=== PATIENT | male | born 1955 | race Caucasian/White ===

== ENCOUNTER 2021-06-07 08:27 | Outpatient (REF) | payer OTHER, MEDICARE, MEDICAID, SELFPAY | END 2021-06-07 08:28 | disposition home or self-care (01) | LOC: HO.LAB 08:27 | PROVIDERS: PCP Internal Medicine; Visit Provider Anesthesiology | DX: G89.4 Chronic pain syndrome (principal); M50.30 Other cervical disc degeneration, unspecified cervical region; M51.36 Other intervertebral disc degeneration, lumbar region; M47.812 Spondylosis without myelopathy or radiculopathy, cervical region; M47.816 Spondylosis without myelopathy or radiculopathy, lumbar region; F12.90 Cannabis use, unspecified, uncomplicated | CPT/HCPCS: 99202 ==

== ENCOUNTER → 2021-06-23 09:03 | Outpatient (BNVA) | payer OTHER, MEDICARE, MEDICAID, SELFPAY | PROVIDERS: PCP Internal Medicine; Visit Provider Anesthesiology | DX: M50.30 Other cervical disc degeneration, unspecified cervical region (principal); M51.36 Other intervertebral disc degeneration, lumbar region; M47.812 Spondylosis without myelopathy or radiculopathy, cervical region; M47.816 Spondylosis without myelopathy or radiculopathy, lumbar region; G89.4 Chronic pain syndrome | CPT/HCPCS: 99212 ==

== ENCOUNTER → 2021-07-06 09:25 | Outpatient (BNVA) | payer OTHER, MEDICARE, MEDICAID, SELFPAY | PROVIDERS: PCP Internal Medicine; Visit Provider Family Medicine Adult Medicine | DX: M47.812 Spondylosis without myelopathy or radiculopathy, cervical region (principal); M50.30 Other cervical disc degeneration, unspecified cervical region; G89.4 Chronic pain syndrome | CPT/HCPCS: 99212 ==

== ENCOUNTER → 2021-08-04 08:40 | Outpatient (BNVA) | payer OTHER, MEDICARE, MEDICAID, SELFPAY | PROVIDERS: PCP Internal Medicine; Visit Provider Anesthesiology | DX: M50.30 Other cervical disc degeneration, unspecified cervical region (principal); M51.36 Other intervertebral disc degeneration, lumbar region; M47.812 Spondylosis without myelopathy or radiculopathy, cervical region; M47.816 Spondylosis without myelopathy or radiculopathy, lumbar region; G89.4 Chronic pain syndrome | CPT/HCPCS: 99212 ==

== ENCOUNTER → 2021-08-30 10:12 | Outpatient (BNVA) | payer OTHER, SELFPAY | PROVIDERS: PCP Internal Medicine; Visit Provider Anesthesiology | DX: M50.30 Other cervical disc degeneration, unspecified cervical region (principal); M51.36 Other intervertebral disc degeneration, lumbar region; M47.812 Spondylosis without myelopathy or radiculopathy, cervical region; M47.816 Spondylosis without myelopathy or radiculopathy, lumbar region; G89.4 Chronic pain syndrome; I10 Essential (primary) hypertension; E78.5 Hyperlipidemia, unspecified; G47.00 Insomnia, unspecified; F41.8 Other specified anxiety disorders | CPT/HCPCS: 99212 ==

== ENCOUNTER → 2021-10-19 09:29 | Outpatient (BNVA) | payer OTHER, SELFPAY | PROVIDERS: PCP Internal Medicine; Visit Provider Anesthesiology | DX: Z51.81 Encounter for therapeutic drug level monitoring (principal) | CPT/HCPCS: 99211 ==

== ENCOUNTER → 2021-11-18 08:33 | Outpatient (BNVA) | payer OTHER, SELFPAY | PROVIDERS: PCP Internal Medicine; Visit Provider Anesthesiology | DX: Z51.81 Encounter for therapeutic drug level monitoring (principal); M50.30 Other cervical disc degeneration, unspecified cervical region; M51.36 Other intervertebral disc degeneration, lumbar region; M47.812 Spondylosis without myelopathy or radiculopathy, cervical region; M47.816 Spondylosis without myelopathy or radiculopathy, lumbar region; G89.4 Chronic pain syndrome | CPT/HCPCS: 99212 ==

== ENCOUNTER → 2021-12-29 10:00 | Outpatient (BNVA) | payer OTHER, SELFPAY | PROVIDERS: PCP Internal Medicine; Visit Provider Anesthesiology | DX: Z51.81 Encounter for therapeutic drug level monitoring (principal); F11.20 Opioid dependence, uncomplicated; M50.30 Other cervical disc degeneration, unspecified cervical region; M51.36 Other intervertebral disc degeneration, lumbar region; M47.812 Spondylosis without myelopathy or radiculopathy, cervical region; M47.816 Spondylosis without myelopathy or radiculopathy, lumbar region; G89.4 Chronic pain syndrome | CPT/HCPCS: 99212 ==

== ENCOUNTER → 2022-01-26 09:41 | Outpatient (BNVA) | payer OTHER, SELFPAY | PROVIDERS: PCP Internal Medicine; Visit Provider Anesthesiology | DX: Z51.81 Encounter for therapeutic drug level monitoring (principal); F11.20 Opioid dependence, uncomplicated; M50.30 Other cervical disc degeneration, unspecified cervical region; M51.36 Other intervertebral disc degeneration, lumbar region; M47.812 Spondylosis without myelopathy or radiculopathy, cervical region; M47.816 Spondylosis without myelopathy or radiculopathy, lumbar region; G89.4 Chronic pain syndrome | CPT/HCPCS: 99212 ==

== ENCOUNTER → 2022-02-23 09:57 | Outpatient (BNVA) | payer OTHER, SELFPAY | PROVIDERS: PCP Internal Medicine; Visit Provider Anesthesiology | DX: Z51.81 Encounter for therapeutic drug level monitoring (principal); Z79.899 Other long term (current) drug therapy | CPT/HCPCS: 99211 ==

== ENCOUNTER → 2022-03-25 09:56 | Outpatient (BNVA) | payer OTHER, SELFPAY | PROVIDERS: PCP Internal Medicine; Visit Provider Anesthesiology | DX: Z13.89 Encounter for screening for other disorder (principal) ==

== ENCOUNTER → 2022-04-21 10:48 | Outpatient (BNVA) | payer OTHER, SELFPAY | PROVIDERS: PCP Internal Medicine; Visit Provider Internal Medicine | DX: Z51.81 Encounter for therapeutic drug level monitoring (principal); F11.20 Opioid dependence, uncomplicated; G89.4 Chronic pain syndrome | CPT/HCPCS: 99212 ==

== ENCOUNTER → 2022-05-19 09:57 | Outpatient (BNVA) | payer OTHER, SELFPAY | PROVIDERS: PCP Internal Medicine; Visit Provider Nurse Practitioner Family | DX: Z51.81 Encounter for therapeutic drug level monitoring (principal); F11.20 Opioid dependence, uncomplicated | CPT/HCPCS: 99211 ==

== ENCOUNTER → 2022-06-15 09:45 | Outpatient (BNVA) | payer OTHER, SELFPAY | PROVIDERS: PCP Internal Medicine; Visit Provider Anesthesiology | DX: Z51.81 Encounter for therapeutic drug level monitoring (principal); F11.20 Opioid dependence, uncomplicated; M50.30 Other cervical disc degeneration, unspecified cervical region; M51.36 Other intervertebral disc degeneration, lumbar region; M47.812 Spondylosis without myelopathy or radiculopathy, cervical region; M47.816 Spondylosis without myelopathy or radiculopathy, lumbar region; G89.4 Chronic pain syndrome | CPT/HCPCS: 99212 ==

== ENCOUNTER → 2022-07-20 10:06 | Outpatient (BNVA) | payer OTHER, SELFPAY | PROVIDERS: PCP Internal Medicine; Visit Provider Anesthesiology | DX: Z51.81 Encounter for therapeutic drug level monitoring (principal); F11.20 Opioid dependence, uncomplicated; M50.30 Other cervical disc degeneration, unspecified cervical region; M51.36 Other intervertebral disc degeneration, lumbar region; M47.812 Spondylosis without myelopathy or radiculopathy, cervical region; M47.816 Spondylosis without myelopathy or radiculopathy, lumbar region; G89.4 Chronic pain syndrome | CPT/HCPCS: 99212 ==

== ENCOUNTER → 2022-08-17 10:46 | Outpatient (BNVA) | payer OTHER, SELFPAY | PROVIDERS: PCP Internal Medicine; Visit Provider Anesthesiology | DX: M50.30 Other cervical disc degeneration, unspecified cervical region (principal); M51.36 Other intervertebral disc degeneration, lumbar region; M47.812 Spondylosis without myelopathy or radiculopathy, cervical region; M47.816 Spondylosis without myelopathy or radiculopathy, lumbar region; G89.4 Chronic pain syndrome | CPT/HCPCS: 99212 ==

== ENCOUNTER → 2022-09-14 10:28 | Outpatient (BNVA) | payer OTHER, SELFPAY | PROVIDERS: PCP Internal Medicine; Visit Provider Anesthesiology | DX: Z51.81 Encounter for therapeutic drug level monitoring (principal); F11.20 Opioid dependence, uncomplicated | CPT/HCPCS: 99211 ==

== ENCOUNTER → 2022-10-12 09:49 | Outpatient (BNVA) | payer OTHER, SELFPAY | PROVIDERS: PCP Internal Medicine; Visit Provider Anesthesiology | DX: M50.30 Other cervical disc degeneration, unspecified cervical region (principal); M51.36 Other intervertebral disc degeneration, lumbar region; M47.812 Spondylosis without myelopathy or radiculopathy, cervical region; M47.816 Spondylosis without myelopathy or radiculopathy, lumbar region; G89.4 Chronic pain syndrome; Z76.0 Encounter for issue of repeat prescription; Z79.891 Long term (current) use of opiate analgesic | CPT/HCPCS: 99212 ==

== ENCOUNTER → 2022-11-09 10:14 | Outpatient (BNVA) | payer OTHER, SELFPAY | PROVIDERS: PCP Internal Medicine; Visit Provider Anesthesiology | DX: Z51.81 Encounter for therapeutic drug level monitoring (principal); F11.20 Opioid dependence, uncomplicated | CPT/HCPCS: 99211 ==

== ENCOUNTER → 2022-12-15 08:55 | Outpatient (BNVA) | payer OTHER, SELFPAY | PROVIDERS: PCP Internal Medicine; Visit Provider Anesthesiology | DX: M50.30 Other cervical disc degeneration, unspecified cervical region (principal); M51.36 Other intervertebral disc degeneration, lumbar region; M47.812 Spondylosis without myelopathy or radiculopathy, cervical region; M47.816 Spondylosis without myelopathy or radiculopathy, lumbar region; G89.4 Chronic pain syndrome | CPT/HCPCS: 99212 ==

== ENCOUNTER → 2023-01-12 10:54 | Outpatient (BNVA) | payer OTHER, SELFPAY | PROVIDERS: PCP Internal Medicine; Visit Provider Anesthesiology | DX: Z51.81 Encounter for therapeutic drug level monitoring (principal); F11.20 Opioid dependence, uncomplicated | CPT/HCPCS: 99211 ==

== ENCOUNTER → 2023-02-13 10:26 | Outpatient (BNVA) | payer OTHER, SELFPAY | PROVIDERS: PCP Internal Medicine; Visit Provider Anesthesiology | DX: M50.30 Other cervical disc degeneration, unspecified cervical region (principal) | CPT/HCPCS: 99212 ==

== ENCOUNTER → 2023-03-15 11:04 | Outpatient (BNVA) | payer OTHER, SELFPAY | PROVIDERS: PCP Internal Medicine; Visit Provider Anesthesiology | DX: Z51.81 Encounter for therapeutic drug level monitoring (principal); F11.20 Opioid dependence, uncomplicated; M50.30 Other cervical disc degeneration, unspecified cervical region; M51.36 Other intervertebral disc degeneration, lumbar region; M47.812 Spondylosis without myelopathy or radiculopathy, cervical region; M47.816 Spondylosis without myelopathy or radiculopathy, lumbar region; G89.4 Chronic pain syndrome | CPT/HCPCS: 99212 ==

== ENCOUNTER → 2023-04-12 10:58 | Outpatient (BNVA) | payer OTHER, SELFPAY | PROVIDERS: PCP Internal Medicine; Visit Provider Anesthesiology | DX: Z79.891 Long term (current) use of opiate analgesic (principal); Z51.81 Encounter for therapeutic drug level monitoring | CPT/HCPCS: 99211 ==

== ENCOUNTER → 2023-05-08 10:36 | Outpatient (BNVA) | payer OTHER, MEDICAID, MEDICARE, SELFPAY | PROVIDERS: PCP Internal Medicine; Visit Provider Anesthesiology | DX: Z51.81 Encounter for therapeutic drug level monitoring (principal); F11.20 Opioid dependence, uncomplicated; M50.30 Other cervical disc degeneration, unspecified cervical region; M51.36 Other intervertebral disc degeneration, lumbar region; M47.812 Spondylosis without myelopathy or radiculopathy, cervical region; M47.816 Spondylosis without myelopathy or radiculopathy, lumbar region; G89.4 Chronic pain syndrome | CPT/HCPCS: 99212 ==

== ENCOUNTER 2023-05-16 06:05 | Outpatient (REF) | payer MEDICARE, MEDICAID, SELFPAY ==
--- NOTE | ~2023-05-16 | FL_ITS ---
EXAMINATION: XR FLUOROSCOPY WITH IMAGES CLINICAL INFORMATION: Spondylosis without myelopathy or radiculopathy, lumbar region. COMPARISON: None available. TECHNIQUE: Fluoroscopy Supervised By: Dr. Morales. Fluoroscopy Time: 0.6 minutes. Cumulative Dose: 10.6 mGy. DAP: 2.88 Gycm2. Images: 6. FINDINGS: Images demonstrate needle placement and contrast injection adjacent to the bilateral lateral L3, L4 and L5 vertebrae. FL/FL guidance in treatment room IMPRESSION: Fluoroscopy guidance for pain management procedure.
== END 2023-05-16 06:06 | disposition home or self-care (01) ==
LOC: CF 06:05
PROVIDERS: Visit Provider Anesthesiology
DX: M50.30 Other cervical disc degeneration, unspecified cervical region (principal); M51.36 Other intervertebral disc degeneration, lumbar region; M47.812 Spondylosis without myelopathy or radiculopathy, cervical region; M47.816 Spondylosis without myelopathy or radiculopathy, lumbar region; G89.4 Chronic pain syndrome
CPT/HCPCS: 64493; 64494; J2795

== ENCOUNTER → 2023-05-18 10:41 | Outpatient (BNVA) | payer MEDICARE, MEDICAID, SELFPAY | PROVIDERS: PCP Internal Medicine; Visit Provider Anesthesiology | DX: M50.30 Other cervical disc degeneration, unspecified cervical region (principal); M51.36 Other intervertebral disc degeneration, lumbar region; M47.812 Spondylosis without myelopathy or radiculopathy, cervical region; M47.816 Spondylosis without myelopathy or radiculopathy, lumbar region; G89.4 Chronic pain syndrome | CPT/HCPCS: 99212 ==

== ENCOUNTER 2023-06-05 10:29 | Outpatient (AMB) | payer MEDICARE, MEDICAID, SELFPAY ==
--- NOTE | 2023-06-05 10:40 | MHC.OFFVIS ---
Intake Vital Signs 06/05/23 10:48 Height 5 ft 4 in Weight 190 lb BMI 32.6 BP 112/58 L Blood Pressure Location Rt brachial Position Sitting Respiration 16 Pulse 70 Pulse Source Pulse Oximeter Pulse Oximetry (%) 98 Oxygen Delivery Method Room Air Intake Visit Reasons: PILL COUNT Intake Note: Patient comes in for pill count to Oxycodone 10 mg tablets. He presented with 86 tablets and should have 88 tablets. Which he took last at 6am. Patient reports pain level today of 8.5/10. Allergies No Known Allergies Allergy (Verified 06/05/23 10:48) HPI HPI Comments History of Present Illness Details Dinh is in my office for the follow-up and pill count. His pill count is correct today his supposed to have 88 pills in his possession he presented is the with 86 pills. He all this takes 2 pills in the morning. He takes also 2 pills at night. He complains on weakness in the lower extremities when he steps out of the car. That it is most likely secondary to spinal stenosis he has there. Prior: diagnostic bilateral L3- L4- L5 MBB performed on 05/16/23. He reports no pain improvement whatsoever. pain after the procedure remained in the range 8/10 to 9.5/10. SCS nevro trial was discussed with the patient. He reports that his son has computer at home and will be able to help him with the psychological evaluation. After that we will schedule him for a trial. ?He has severe lumbar stenosis.? I recommended him to go back to a neurosurgeon to discuss his spinal stenosis.? However patient adamantly refused to go for consultation with a neurosurgeon.? 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 At multiple intervertebral interval he has ligamentum flavum hypertrophy which could be addressed with MILD procedure. Prior: Dinh is 65 years old gentleman who presents in my office with complains on severe pain in neck and severe pain in the back.? He reports pain in the neck radiates into the right upper extremity and pain in the back is not radiating.? He relates his pain to the injuries he sustained while in accident on 09/05. he fell from garbage truck an fell on his back.? About 2 years ago he was on oxycodone about 120 mg a day and the he was more active and able to walk better.? He reports that he had multiple chiropractic manipulations and physical therapy in the past to alleviate his pain and those were not effective, he has home traction unit but it does not alleviate his pain. He takes Lyrica meloxicam Cymbalta phentermine and amitriptyline to help him to sleep at night. He never had surgery on his back although on MRI from 2010 he had severe foraminal stenosis at C4-C5 level and mild central cord compression.? He refuses surgery.? He told me that the surgeries something he would never except for himself.? He received 1 injection of unknown kind in his lumbar spine but never in injection in his cervical spine. [facility] Medical History (Updated 06/07/21 @ 09:25 by Moiz Morales MD) Allergic rhinitis Anxiety Chronic pain syndrome Chronic radicular cervical pain COPD (chronic obstructive pulmonary disease) Degenerative disc disease, cervical Degenerative disc disease, lumbar Depression Erectile dysfunction Essential hypertension Hyperlipidemia Insomnia Spondylosis of lumbar region without myelopathy or radiculopathy Spondylosis, cervical Review of Systems Const All systems reviewed & are unremarkable except as noted in HPI and below Physical Exam Vital Signs: Last Vital Signs Pulse 70 06/05/23 10:48 Resp 16 06/05/23 10:48 BP 112/58 L 06/05/23 10:48 Pulse Ox 98 06/05/23 10:48 Oxygen Delivery Method Room Air 06/05/23 10:48 BMI result Body Mass Index 32.6 Resp Effort & Inspection: normal respiratory effort and able to speak in complete sentences Cardio Jugular venous distension: no JVD Back/Spine/Pelvis Other: Loading test is positive bilaterally, tenderness of palpation on paraspinal spinal region lumbar spine Cervical Spine: No cervical ROM normal Thoracic/Lumbar Spine: thoracic and lumbar spine normal to inspection, pain with thoraco-lumbar ROM and thoraco-lumbar ROM limited Psych Appearance: grossly normal Mental Status: mental status grossly normal Speech and movement: Normal speech and movement present Affect: normal affect Attitude: cooperative Thought process: Normal thought process present Thought content: Normal thought content present Insight: Good insight present (Psych) Judgement: Good judgement present (Psych) Assessment & Plan Assessment & Plan (1) Degenerative disc disease, cervical: Code(s): M50.30 - Other cervical disc degeneration, unspecified cervical region (2) Degenerative disc disease, lumbar: Code(s): M51.36 - Other intervertebral disc degeneration, lumbar region (3) Spondylosis, cervical: Code(s): M47.812 - Spondylosis without myelopathy or radiculopathy, cervical region (4) Spondylosis of lumbar region without myelopathy or radiculopathy: Code(s): M47.816 - Spondylosis without myelopathy or radiculopathy, lumbar region (5) Chronic pain syndrome: Code(s): G89.4 - Chronic pain syndrome Plan Next appointment for a pill count is in the middle of June. New medication will be prescribed for him for 12/16/2022. He is in the process of getting psychological evaluation. As soon as psych eval is ready - the patient will be scheduled for the nevro trial. MILD procedure could be offered to the patient if Nevro trial fails. Bupivacaine pain pump could be also tried. Medications: Refilled oxycodone Partial Fill upon patient request. 10 mg PO Q6H PRN 120 tabs 0RF pain 30 days Coding Level of Care Code Est Pt Level 4 (38532) Diagnoses Degenerative disc disease, cervical M50.30 Degenerative disc disease, lumbar M51.36 Spondylosis, cervical M47.812 Spondylosis of lumbar region without myelopathy or radiculopathy M47.816 Chronic pain syndrome G89.4
[2023-06-05 10:48] VITALS: BP 112/58; PULSE 70; RESP 16; O2SAT 98; BMI 32.6
== END 2023-06-05 11:09 | disposition home or self-care (01) ==
PROVIDERS: PCP Internal Medicine; Visit Provider Anesthesiology
DX: M47.812 Spondylosis without myelopathy or radiculopathy, cervical region (principal); M47.816 Spondylosis without myelopathy or radiculopathy, lumbar region; Z79.891 Long term (current) use of opiate analgesic; G89.4 Chronic pain syndrome; M51.36 Other intervertebral disc degeneration, lumbar region; M50.30 Other cervical disc degeneration, unspecified cervical region
CPT/HCPCS: 99214

== ENCOUNTER → 2023-06-05 10:29 | Outpatient (BNVA) | payer OTHER, MEDICARE, SELFPAY | PROVIDERS: PCP Internal Medicine; Visit Provider Anesthesiology | DX: Z51.81 Encounter for therapeutic drug level monitoring (principal); F11.20 Opioid dependence, uncomplicated; M50.30 Other cervical disc degeneration, unspecified cervical region; M51.36 Other intervertebral disc degeneration, lumbar region; M47.812 Spondylosis without myelopathy or radiculopathy, cervical region; M47.816 Spondylosis without myelopathy or radiculopathy, lumbar region; G89.4 Chronic pain syndrome | CPT/HCPCS: 99212 ==

== ENCOUNTER → 2023-07-04 10:28 | Outpatient (BNVA) | payer OTHER, MEDICARE, MEDICAID, SELFPAY | PROVIDERS: PCP Internal Medicine; Visit Provider Nurse Practitioner Family ==

== ENCOUNTER 2023-08-02 09:23 | Outpatient (AMB) | payer OTHER, MEDICARE, MEDICAID, SELFPAY ==
[2023-08-02 09:52] VITALS: BP 142/70; PULSE 88; RESP 16; O2SAT 97; BMI 31.3
--- NOTE | 2023-08-02 09:52 | MHC.OFFVIS ---
Intake Vital Signs 08/02/23 09:52 Height 5 ft 4 in Weight 182 lb 2 oz BMI 31.3 BP 142/70 H Blood Pressure Location Rt brachial Position Sitting Respiration 16 Pulse 88 Pulse Source Pulse Oximeter Pulse Oximetry (%) 97 Oxygen Delivery Method Room Air Intake Visit Reasons: Pill count Intake Note: patient comes in for pill count. Allergies No Known Allergies Allergy (Verified 08/02/23 09:52) HPI HPI Comments History of Present Illness Details Dinh is in my office for the pill count and pain medication refill. His supposed to have 96 pills in his possession he presented with 94 pills. The pill count therefore is correct. He reports his pain level today is 9/10. We are working on starting on Nevro trial, he has workman's Comp patient. His behavioral assessment through [facility] is pending for potential Nevro SCS trial. Denies any side effects of the opioid medication, denies constipation, nausea, sedation, dizziness, or urinary retention. PRIOR: diagnostic bilateral L3- L4- L5 MBB performed on 05/16/23. He reports no pain improvement whatsoever. pain after the procedure remained in the range 8/10 to 9.5/10. SCS nevro trial was discussed with the patient. He reports that his son has computer at home and will be able to help him with the psychological evaluation. After that we will schedule him for a trial. ?He has severe lumbar stenosis.? I recommended him to go back to a neurosurgeon to discuss his spinal stenosis.? However patient adamantly refused to go for consultation with a neurosurgeon.? 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 At multiple intervertebral interval he has ligamentum flavum hypertrophy which could be addressed with MILD procedure. complains on severe pain in neck and severe pain in the back.? He reports pain in the neck radiates into the right upper extremity and pain in the back is not radiating.? He relates his pain to the injuries he sustained while in accident on 09/05. he fell from garbage truck an fell on his back.? About 2 years ago he was on oxycodone about 120 mg a day and the he was more active and able to walk better.? He reports that he had multiple chiropractic manipulations and physical therapy in the past to alleviate his pain and those were not effective, he has home traction unit but it does not alleviate his pain. He takes Lyrica meloxicam Cymbalta phentermine and amitriptyline to help him to sleep at night. He never had surgery on his back although on MRI from 2010 he had severe foraminal stenosis at C4-C5 level and mild central cord compression.? He refuses surgery.? He told me that the surgeries something he would never except for himself.? He received 1 injection of unknown kind in his lumbar spine but never in injection in his cervical spine. [facility] Medical History (Updated 07/04/23 @ 11:10 by CEDRICK Jarquin) Allergic rhinitis Anxiety Chronic pain syndrome Chronic radicular cervical pain COPD (chronic obstructive pulmonary disease) Degenerative disc disease, cervical Degenerative disc disease, lumbar Depression Erectile dysfunction Essential hypertension Hyperlipidemia Insomnia Spondylosis of lumbar region without myelopathy or radiculopathy Spondylosis, cervical Review of Systems Const All systems reviewed & are unremarkable except as noted in HPI and below Physical Exam Vital Signs: Last Vital Signs Pulse 88 08/02/23 09:52 Resp 16 08/02/23 09:52 BP 142/70 H 08/02/23 09:52 Pulse Ox 97 08/02/23 09:52 Oxygen Delivery Method Room Air 08/02/23 09:52 BMI result Body Mass Index 31.3 Resp Effort & Inspection: normal respiratory effort and able to speak in complete sentences Cardio Jugular venous distension: no JVD Back/Spine/Pelvis Other: Loading test is positive bilaterally, tenderness of palpation on paraspinal spinal region lumbar spine Cervical Spine: No cervical ROM normal Thoracic/Lumbar Spine: thoracic and lumbar spine normal to inspection, pain with thoraco-lumbar ROM and thoraco-lumbar ROM limited Psych Appearance: grossly normal Mental Status: mental status grossly normal Speech and movement: Normal speech and movement present Affect: normal affect Attitude: cooperative Thought process: Normal thought process present Thought content: Normal thought content present Insight: Good insight present (Psych) Judgement: Good judgement present (Psych) Assessment & Plan Assessment & Plan (1) Degenerative disc disease, cervical: Code(s): M50.30 - Other cervical disc degeneration, unspecified cervical region (2) Degenerative disc disease, lumbar: Code(s): M51.36 - Other intervertebral disc degeneration, lumbar region (3) Spondylosis, cervical: Code(s): M47.812 - Spondylosis without myelopathy or radiculopathy, cervical region (4) Spondylosis of lumbar region without myelopathy or radiculopathy: Code(s): M47.816 - Spondylosis without myelopathy or radiculopathy, lumbar region (5) Chronic pain syndrome: Code(s): G89.4 - Chronic pain syndrome Plan Next appointment Will be scheduled in 1 month. New medication will be prescribed for him for 08/26/2023 He is in the process of getting psychological evaluation. Workman's Comp needs to be get contacted to approve psych eval. As soon as psych eval is ready - the patient will be scheduled for the nevro trial. MILD procedure could be offered to the patient if Nevro trial fails. MRI could be evaluated for his lumbar spine, Modic type changes could be assessed. Bupivacaine pain pump could be also tried in combination with Nevro SCS. Medications: Refilled oxycodone Partial Fill upon patient request. 10 mg PO Q6H PRN 120 tabs 0RF pain 30 days G89.4 - Chronic pain syndrome, M50.30 - Other cervical disc degeneration, unspecified cervical region, M51.36 - Other intervertebral disc degeneration, lumbar region, Z79.891 - prison (current) use of opiate analgesic Coding Level of Care Code Est Pt Level 4 (42943) Diagnoses Degenerative disc disease, cervical M50.30 Degenerative disc disease, lumbar M51.36 Spondylosis, cervical M47.812 Spondylosis of lumbar region without myelopathy or radiculopathy M47.816 Chronic pain syndrome G89.4
== END 2023-08-02 09:54 | disposition home or self-care (01) ==
PROVIDERS: PCP Internal Medicine; Visit Provider Anesthesiology
DX: G89.4 Chronic pain syndrome (principal); M50.30 Other cervical disc degeneration, unspecified cervical region; M51.36 Other intervertebral disc degeneration, lumbar region; M47.812 Spondylosis without myelopathy or radiculopathy, cervical region; M47.816 Spondylosis without myelopathy or radiculopathy, lumbar region; Z79.891 Long term (current) use of opiate analgesic
CPT/HCPCS: 99214

== ENCOUNTER → 2023-08-02 09:23 | Outpatient (BNVA) | payer OTHER, MEDICARE, MEDICAID, SELFPAY | PROVIDERS: PCP Internal Medicine; Visit Provider Anesthesiology | DX: G89.4 Chronic pain syndrome (principal); M50.30 Other cervical disc degeneration, unspecified cervical region; M51.36 Other intervertebral disc degeneration, lumbar region; M47.812 Spondylosis without myelopathy or radiculopathy, cervical region; M47.816 Spondylosis without myelopathy or radiculopathy, lumbar region; Z79.891 Long term (current) use of opiate analgesic | CPT/HCPCS: 99212 ==

== ENCOUNTER 2023-08-30 09:56 | Outpatient (AMB) | payer OTHER, MEDICARE, MEDICAID, SELFPAY ==
--- NOTE | 2023-08-30 10:13 | MHC.OFFVIS ---
Intake Vital Signs 08/30/23 10:31 Height 5 ft 4 in Weight 187 lb 4 oz BMI 32.1 BP 146/68 H Blood Pressure Location Rt brachial Position Sitting Respiration 18 Pulse 70 Pulse Source Pulse Oximeter Pulse Oximetry (%) 96 Oxygen Delivery Method Room Air Intake Visit Reasons: Pill count/ Confirmed. Intake Note: patient comes in for pill count to Oxycodone 10 mg tablets. Allergies No Known Allergies Allergy (Verified 08/30/23 10:33) HPI HPI Comments History of Present Illness Details Dinh is in my office for the pill count and pain medication refill. His supposed to have 104 pills in his possession he presented with 102 pills. The pill count therefore is correct. He reports his pain level today is 8/10. He admits minimal to moderate help from the opioid medication 2 to 3 hours after he takes his pills . Denies any side effects of the opioid medication, denies constipation, nausea, sedation, dizziness, or urinary retention. He took his pills in the morning. We are working on starting on Nevro trial, he is workman's Comp patient. His behavioral assessment through [facility] is pending for potential Nevro SCS trial. His workman's comp needs to approve the psychological evaluation. Denies any side effects of the opioid medication, denies constipation, nausea, sedation, dizziness, or urinary retention. PRIOR: diagnostic bilateral L3- L4- L5 MBB performed on 05/16/23. He reports no pain improvement whatsoever. pain after the procedure remained in the range 8/10 to 9.5/10. SCS nevro trial was discussed with the patient. He reports that his son has computer at home and will be able to help him with the psychological evaluation. After that we will schedule him for a trial. ?He has severe lumbar stenosis.? I recommended him to go back to a neurosurgeon to discuss his spinal stenosis.? However patient adamantly refused to go for consultation with a neurosurgeon.? 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 At multiple intervertebral interval he has ligamentum flavum hypertrophy which could be addressed with MILD procedure. complains on severe pain in neck and severe pain in the back.? He reports pain in the neck radiates into the right upper extremity and pain in the back is not radiating.? He relates his pain to the injuries he sustained while in accident on 09/05. he fell from garbage truck an fell on his back.? About 2 years ago he was on oxycodone about 120 mg a day and the he was more active and able to walk better.? He reports that he had multiple chiropractic manipulations and physical therapy in the past to alleviate his pain and those were not effective, he has home traction unit but it does not alleviate his pain. He takes Lyrica meloxicam Cymbalta phentermine and amitriptyline to help him to sleep at night. He never had surgery on his back although on MRI from 2010 he had severe foraminal stenosis at C4-C5 level and mild central cord compression.? He refuses surgery.? He told me that the surgeries something he would never except for himself.? He received 1 injection of unknown kind in his lumbar spine but never in injection in his cervical spine. [facility] Medical History (Updated 07/04/23 @ 11:10 by CEDRICK Jarquin) Chronic pain syndrome Spondylosis of lumbar region without myelopathy or radiculopathy Spondylosis, cervical Degenerative disc disease, lumbar Degenerative disc disease, cervical Depression Essential hypertension Chronic radicular cervical pain Allergic rhinitis Anxiety COPD (chronic obstructive pulmonary disease) Insomnia Hyperlipidemia Erectile dysfunction Review of Systems Const All systems reviewed & are unremarkable except as noted in HPI and below Physical Exam Vital Signs: Last Vital Signs Pulse 70 08/30/23 10:31 Resp 18 08/30/23 10:31 BP 146/68 H 08/30/23 10:31 Pulse Ox 96 08/30/23 10:31 Oxygen Delivery Method Room Air 08/30/23 10:31 BMI result Body Mass Index 32.1 Resp Effort & Inspection: normal respiratory effort and able to speak in complete sentences Cardio Jugular venous distension: no JVD Back/Spine/Pelvis Other: Loading test is positive bilaterally, tenderness of palpation on paraspinal spinal region lumbar spine Cervical Spine: No cervical ROM normal Thoracic/Lumbar Spine: thoracic and lumbar spine normal to inspection, pain with thoraco-lumbar ROM and thoraco-lumbar ROM limited Psych Appearance: grossly normal Mental Status: mental status grossly normal Speech and movement: Normal speech and movement present Affect: normal affect Attitude: cooperative Thought process: Normal thought process present Thought content: Normal thought content present Insight: Good insight present (Psych) Judgement: Good judgement present (Psych) Assessment & Plan Assessment & Plan (1) Degenerative disc disease, cervical: Code(s): M50.30 - Other cervical disc degeneration, unspecified cervical region (2) Degenerative disc disease, lumbar: Code(s): M51.36 - Other intervertebral disc degeneration, lumbar region (3) Spondylosis, cervical: Code(s): M47.812 - Spondylosis without myelopathy or radiculopathy, cervical region (4) Spondylosis of lumbar region without myelopathy or radiculopathy: Code(s): M47.816 - Spondylosis without myelopathy or radiculopathy, lumbar region (5) Chronic pain syndrome: Code(s): G89.4 - Chronic pain syndrome Plan Next appointment Will be scheduled in 1 month. New medication will be prescribed for him for 09/24/2023 He is in the process of getting psychological evaluation. Workman's Comp needs to be get contacted to approve psych eval. As soon as psych eval is ready - the patient will be scheduled for the nevro trial. MILD procedure could be offered to the patient if Nevro trial fails. MRI could be evaluated for his lumbar spine, Modic type changes could be assessed. Bupivacaine pain pump could be also tried in combination with Nevro SCS or separate mode of treatment. Medications: Refilled oxycodone Partial Fill upon patient request. 10 mg PO Q6H 30 days PRN 120 tabs 0RF pain G89.4 - Chronic pain syndrome, M50.30 - Other cervical disc degeneration, unspecified cervical region, M51.36 - Other intervertebral disc degeneration, lumbar region, Z79.891 - intermediate (current) use of opiate analgesic Coding Level of Care Code Est Pt Level 3 (23465) Diagnoses Degenerative disc disease, cervical M50.30 Degenerative disc disease, lumbar M51.36 Spondylosis, cervical M47.812 Spondylosis of lumbar region without myelopathy or radiculopathy M47.816 Chronic pain syndrome G89.4
[2023-08-30 10:31] VITALS: BP 146/68; PULSE 70; RESP 18; O2SAT 96; BMI 32.1
== END 2023-08-30 10:25 | disposition home or self-care (01) ==
PROVIDERS: PCP Internal Medicine; Visit Provider Anesthesiology
DX: G89.4 Chronic pain syndrome (principal); M50.30 Other cervical disc degeneration, unspecified cervical region; M51.36 Other intervertebral disc degeneration, lumbar region; Z79.891 Long term (current) use of opiate analgesic; M47.812 Spondylosis without myelopathy or radiculopathy, cervical region; M47.816 Spondylosis without myelopathy or radiculopathy, lumbar region
CPT/HCPCS: 99213

== ENCOUNTER → 2023-08-30 09:56 | Outpatient (BNVA) | payer OTHER, MEDICARE, MEDICAID, SELFPAY | PROVIDERS: PCP Internal Medicine; Visit Provider Anesthesiology | DX: M50.30 Other cervical disc degeneration, unspecified cervical region (principal); M51.36 Other intervertebral disc degeneration, lumbar region; M47.812 Spondylosis without myelopathy or radiculopathy, cervical region; M47.816 Spondylosis without myelopathy or radiculopathy, lumbar region; G89.4 Chronic pain syndrome; Z79.891 Long term (current) use of opiate analgesic | CPT/HCPCS: 99212 ==

== ENCOUNTER 2023-09-27 10:47 | Outpatient (AMB) | payer OTHER, MEDICARE, MEDICAID, SELFPAY ==
[2023-09-27 10:51] VITALS: BP 121/58; PULSE 72; RESP 12; O2SAT 97; BMI 30.9
--- NOTE | 2023-09-27 10:51 | MHC.OFFVIS ---
Intake Vital Signs 09/27/23 10:51 Height 5 ft 4 in Weight 180 lb BMI 30.9 BP 121/58 L Blood Pressure Location Lt brachial Position Sitting Respiration 12 Pulse 72 Pulse Source Pulse Oximeter Pulse Oximetry (%) 97 Oxygen Delivery Method Room Air Intake Visit Reasons: Medication Count /Confirmed Intake Note: Pt states he last took oxy 09/27/23 @ 6am Allergies No Known Allergies Allergy (Verified 09/27/23 10:52) Medication List - Last Reconciled 09/27/23 by Nadia Crum LPN albuterol sulfate 90 mcg/actuation (Ventolin HFA) inhalation amitriptyline 50 mg PO BEDTIME atorvastatin mg PO cetirizine 10 mg PO DAILY clotrimazole 1% topical ylcbpfkyxko-jmbadvqxo-bnkbpkzr 100-62.5-25 mcg (Trelegy Ellipta) inhalation lisinopril 10 mg PO DAILY omeprazole mg PO oxycodone 10 mg PO Q6H PRN 30 days HPI HPI Comments History of Present Illness Details Dinh is in my office for the pill count and pain medication refill. His supposed to have 112 pills in his possession he presented with 110 pills. The pill count therefore is correct. He reports his pain level today is 8/10. He admits minimal to moderate help from the opioid medication 2 to 3 hours after he takes his pills . Denies any side effects of the opioid medication, denies constipation, nausea, sedation, dizziness, or urinary retention. He took his pills in the morning. We are working on starting on Nevro trial, he is workman's Comp patient. His behavioral assessment through [facility] is pending for potential Nevro SCS trial. His workman's comp needs to approve the psychological evaluation. Denies any side effects of the opioid medication, denies constipation, nausea, sedation, dizziness, or urinary retention. Meanwhile is requesting me to perform some sort of the injection in his lower back to alleviate his pain temporarily. We can try bilateral L4-5 transforaminal epidural steroid injection. PRIOR: diagnostic bilateral L3- L4- L5 MBB performed on 05/16/23. He reports no pain improvement whatsoever. pain after the procedure remained in the range 8/10 to 9.5/10. SCS nevro trial was discussed with the patient. He reports that his son has computer at home and will be able to help him with the psychological evaluation. After that we will schedule him for a trial. ?He has severe lumbar stenosis.? I recommended him to go back to a neurosurgeon to discuss his spinal stenosis.? However patient adamantly refused to go for consultation with a neurosurgeon.? 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 At multiple intervertebral interval he has ligamentum flavum hypertrophy which could be addressed with MILD procedure. complains on severe pain in neck and severe pain in the back.? He reports pain in the neck radiates into the right upper extremity and pain in the back is not radiating.? He relates his pain to the injuries he sustained while in accident on 09/05. he fell from garbage truck an fell on his back.? About 2 years ago he was on oxycodone about 120 mg a day and the he was more active and able to walk better.? He reports that he had multiple chiropractic manipulations and physical therapy in the past to alleviate his pain and those were not effective, he has home traction unit but it does not alleviate his pain. He takes Lyrica meloxicam Cymbalta phentermine and amitriptyline to help him to sleep at night. He never had surgery on his back although on MRI from 2010 he had severe foraminal stenosis at C4-C5 level and mild central cord compression.? He refuses surgery.? He told me that the surgeries something he would never except for himself.? He received 1 injection of unknown kind in his lumbar spine but never in injection in his cervical spine. [facility] Medical History (Updated 07/04/23 @ 11:10 by CEDRICK Jarquin) Chronic pain syndrome Spondylosis of lumbar region without myelopathy or radiculopathy Spondylosis, cervical Degenerative disc disease, lumbar Degenerative disc disease, cervical Depression Essential hypertension Chronic radicular cervical pain Allergic rhinitis Anxiety COPD (chronic obstructive pulmonary disease) Insomnia Hyperlipidemia Erectile dysfunction Review of Systems Const All systems reviewed & are unremarkable except as noted in HPI and below Physical Exam Vital Signs: Last Vital Signs Pulse 72 09/27/23 10:51 Resp 12 09/27/23 10:51 BP 121/58 L 09/27/23 10:51 Pulse Ox 97 09/27/23 10:51 Oxygen Delivery Method Room Air 09/27/23 10:51 BMI result Body Mass Index 30.9 Resp Effort & Inspection: normal respiratory effort and able to speak in complete sentences Cardio Jugular venous distension: no JVD Back/Spine/Pelvis Other: Loading test is positive bilaterally, tenderness of palpation on paraspinal spinal region lumbar spine Cervical Spine: No cervical ROM normal Thoracic/Lumbar Spine: thoracic and lumbar spine normal to inspection, pain with thoraco-lumbar ROM and thoraco-lumbar ROM limited Psych Appearance: grossly normal Mental Status: mental status grossly normal Speech and movement: Normal speech and movement present Affect: normal affect Attitude: cooperative Thought process: Normal thought process present Thought content: Normal thought content present Insight: Good insight present (Psych) Judgement: Good judgement present (Psych) Results Reviewed Results Reviewed: MRI lumbar spine 07/04/2021. Vertebral body height is maintained. There is a straightening of the normal lumbar lordosis. There is 4 mm of anterolisthesis of L4 on L5 and trace retrolisthesis of L5 on S1. There is very slight levoscoliotic curvature. Bone marrow signal intensity is within normal limits. 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 There is disc desiccation throughout lumbar spine. Conus medullaris terminates at the level of L1. Cauda equina is unremarkable. Levels: T12-L1: Disc degeneration and loss in height. Mild facet arthrosis. No central canal stenosis or neural foraminal narrowing. L1-L2: Disc desiccation and diffuse annular bulge with prominence within the neural foraminal bilaterally. There is moderate central canal stenosis severe left and moderate right neural foraminal narrowing. Posterior a medial displacement of traversing nerve roots in the right lateral recess is suspected. Correlation with radiculopathy is recommended. L2-L3: Diffuse annular bulge. Facet arthrosis. Ligamentous laxity contributing to moderate central canal stenosis, lateral recess stenosis, moderate left and mild right neural foraminal narrowing. L3-L4: Disc desiccation: Loss of heights. Diffuse annular bulge. Bilateral ligamentous laxity causing moderate central canal stenosis, lateral recess stenosis, moderate right and left neural foraminal narrowing. L4-5: Disc desiccation and diffuse annular bulge. Facet arthrosis and ligament of laxity with severe central canal stenosis. Lateral recess stenosis, and moderate bilateral neural foraminal narrowing. Abutment of the exiting L4 nerve roots in the far lateral compartment is not complete excluded. L5-S1: Disc desiccation loss of height. Uncovering the posterior intervertebral disc space. Disc osteophyte complex causing effacement of the anterior thecal space. Lateral recess stenosis and moderate lateral neural foraminal narrowing. The vascular soft tissues unremarkable. Assessment & Plan Assessment & Plan (1) Degenerative disc disease, cervical: Code(s): M50.30 - Other cervical disc degeneration, unspecified cervical region (2) Degenerative disc disease, lumbar: Code(s): M51.36 - Other intervertebral disc degeneration, lumbar region (3) Spondylosis, cervical: Code(s): M47.812 - Spondylosis without myelopathy or radiculopathy, cervical region (4) Spondylosis of lumbar region without myelopathy or radiculopathy: Code(s): M47.816 - Spondylosis without myelopathy or radiculopathy, lumbar region (5) Chronic pain syndrome: Code(s): G89.4 - Chronic pain syndrome Plan Next appointment Will be scheduled in 1 month. New medication will be prescribed for him for 10/25/2023 He is in the process of getting psychological evaluation. Workman's Comp needs to be get contacted to approve psych eval. As soon as psych eval is ready - the patient will be scheduled for the nevro trial. MILD procedure could be offered to the patient if Nevro trial fails. MRI could be evaluated for his lumbar spine, Modic type changes could be assessed. Bupivacaine pain pump could be also tried in combination with Nevro SCS or separate mode of treatment. However all of this is on the wait because he cannot register himself for the [facility] pointed evaluation. He is asking me to perform some injection to temporize his pain in the back. I will offer him transforaminal bilateral epidural steroid injection L4-5 made be instrumental to help his pain. Medications: Refilled oxycodone Partial Fill upon patient request. 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 Coding Level of Care Code Est Pt Level 5 (87317) Diagnoses Degenerative disc disease, cervical M50.30 Degenerative disc disease, lumbar M51.36 Spondylosis, cervical M47.812 Spondylosis of lumbar region without myelopathy or radiculopathy M47.816 Chronic pain syndrome G89.4
== END 2023-09-27 11:40 | disposition home or self-care (01) ==
PROVIDERS: PCP Internal Medicine; Visit Provider Anesthesiology
DX: G89.4 Chronic pain syndrome (principal); M51.36 Other intervertebral disc degeneration, lumbar region; M50.30 Other cervical disc degeneration, unspecified cervical region; Z79.891 Long term (current) use of opiate analgesic; M47.812 Spondylosis without myelopathy or radiculopathy, cervical region; M47.816 Spondylosis without myelopathy or radiculopathy, lumbar region
CPT/HCPCS: 99215

== ENCOUNTER → 2023-09-27 10:47 | Outpatient (BNVA) | payer OTHER, MEDICARE, MEDICAID, SELFPAY | PROVIDERS: PCP Internal Medicine; Visit Provider Anesthesiology | DX: M47.812 Spondylosis without myelopathy or radiculopathy, cervical region (principal); M50.30 Other cervical disc degeneration, unspecified cervical region; M47.816 Spondylosis without myelopathy or radiculopathy, lumbar region; M51.36 Other intervertebral disc degeneration, lumbar region; G89.4 Chronic pain syndrome; Z79.891 Long term (current) use of opiate analgesic | CPT/HCPCS: 99212 ==

== ENCOUNTER 2023-10-23 11:24 | Outpatient (AMB) | payer OTHER, MEDICARE, MEDICAID, SELFPAY ==
--- NOTE | 2023-10-23 11:26 | A.OFFVIS_ITS ---
Intake Vital Signs 10/23/23 11:28 Height 5 ft 4 in Weight 182 lb BMI 31.2 BP 123/58 L Blood Pressure Location Rt brachial Position Sitting Pulse 70 Pulse Source Pulse Oximeter Pulse Oximetry (%) 95 Oxygen Delivery Method Room Air Intake Visit Reasons: pill count/confirmed Intake Note: Dinh comes in today for a pill count to oxycodone, patient should have 8 tablets and presents with 6 tablets which he last took today 10/23/23 at 5am. Pain today 7/10 Client Service Professional Required: No Accompanied by: Self / Same As Patient Allergies No Known Allergies Allergy (Verified 09/27/23 10:52) HPI HPI Comments History of Present Illness Details Patient is a 67 years old male presents today for a pill count and pain medication refill. He was previously seen by Dr. Morales as noted below. Patient supposed to have #8 pills in his possession he presented with #6 pills. This demonstrates a responsible attitude in regards to the medication regimen. Patient reports his pain level today is 7/10. He admits minimal to moderate analgesia from current pain regime medication. He is awaiting Behavioral Assessment evaluation for SCS trial as well as therapeutic injection for his low back pain. Patient would like to schedule this in November 2023. Denies any side effects of the opioid medication, denies constipation, nausea, sedation, di zziness, or urinary retention. PRIOR: Dinh is in my office for the pill count and pain medication refill. His supposed to have 112 pills in his possession he presented with 110 pills. The pill count therefore is correct. He reports his pain level today is 8/10. He admits minimal to moderate help from the opioid medication 2 to 3 hours after he takes his pills . Denies any side effects of the opioid medication, denies constipation, nausea, sedation, dizziness, or urinary retention. He took his pills in the morning. We are working on starting on Nevro trial, he is workman's Comp patient. His behavioral assessment through [facility] is pending for potential Nevro SCS trial. His workman's comp needs to approve the psychological evaluation. Denies any side effects of the opioid medication, denies constipation, nausea, sedation, dizziness, or urinary retention. Meanwhile is requesting me to perform some sort of the injection in his lower back to alleviate his pain temporarily. We can try bilateral L4-5 transforaminal epidural steroid injection. PRIOR: diagnostic bilateral L3- L4- L5 MBB performed on 05/16/23. He reports no pain improvement whatsoever. pain after the procedure remained in the range 8/10 to 9.5/10. SCS nevro trial was discussed with the patient. He reports that his son has computer at home and will be able to help him with the psychological evalu ation. After that we will schedule him for a trial. ?He has severe lumbar stenosis.? I recommended him to go back to a neurosurgeon to discuss his spinal stenosis.? However patient adamantly refused to go for consultation with a neurosurgeon.? 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 At multiple intervertebral interval he has ligamentum flavum hypertrophy which could be addressed with MILD procedure. complains on severe pain in neck and severe pain in the back.? He reports pain in the neck radiates into the right upper extremity and pain in the back is not radiating.? He relates his pain to the injuries he sustained while in accident on 09/05. he fell from garbage truck an fell on his back.? About 2 years ago he was on oxycodone about 120 mg a day and the he was more active and able to walk better.? He reports that he had multiple chiropractic manipulations and physical therapy in the past to alleviate his pain and those were not effective, he has home traction unit but it does not alleviate his pain. He takes Lyrica meloxicam Cymbalta phentermine and amitriptyline to help him to sleep at night. He never had surgery on his back although on MRI from 2010 he had severe foraminal stenosis at C4-C5 level and mild central cord compression.? He refuses surgery.? He told me that the surgeries something he would never except for himself.? He received 1 injection of unknown kind in his lumbar spine but never in injection in his cervical spine. [facility] Medical History (Updated 10/23/23 @ 14:37 by CEDRICK Jarquin) Chronic pain syndrome Spondylosis of lumbar region without myelopathy or radiculopathy Spondylosis, cervical Degenerative disc disease, lumbar Degenerative disc disease, cervical Depression Essential hypertension Chronic radicular cervical pain Allergic rhinitis Anxiety COPD (chronic obstructive pulmonary disease) Insomnia Hyperlipidemia Erectile dysfunction Review of Systems Const All systems reviewed & are unremarkable except as noted in HPI and below Physical Exam Vital Signs: Last Vital Signs Pulse 70 10/23/23 11:28 BP 123/58 L 10/23/23 11:28 Pulse Ox 95 10/23/23 11:28 Oxygen Delivery Method Room Air 10/23/23 11:28 BMI result Body Mass Index 31.2 General: Appears afebrile. Alert and oriented. Mood and affect appropriate. Follows and participates in conversation appropriately. Respiratory effort is unlabored. No cough. Able to transition from sit to stand unassisted. Ambulates with bilaterally normal heel strike and toe off. Back/Spine/Pelvis Cervical Spine: cervical ROM normal, cervical muscular tenderness and No Cervical spine tenderness Thoracic/Lumbar Spine: thoracic and lumbar spine normal to inspection, Lasegue's sign positive bilateral and diffuse, pain with thoraco-lumbar ROM, paraspinal muscle tenderness, thoraco-lumbar ROM limited, No thoracic spinal tenderness, lumbar spinal tenderness at L4 and at L5 and straight leg raise positive (R>L) Pelvis: no buttock tenderness Sacroiliac joints: bilaterally nontender Psych Appearance: grossly normal Mental Status: mental status grossly normal Speech and movement: Normal speech and movement present Affect: normal affect Attitude: cooperative Thought process: Normal thought process present Thought content: Normal thought content present, suicidality (none), no hallucinations and No Depressive thoughts present Insight: Good insight present (Psych) Judgement: Good judgement present (Psych) Results Reviewed Results Reviewed: MRI lumbar spine 07/04/2021. Vertebral body height is maintained. There is a straightening of the normal lumbar lordosis. There is 4 mm of anterolisthesis of L4 on L5 and trace retrolisthesis of L5 on S1. There is very slight levoscoliotic curvature. Bone marrow signal intensity is within normal limits. 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 There is disc desiccation throughout lumbar s pine. Conus medullaris terminates at the level of L1. Cauda equina is unremarkable. Levels: T12-L1: Disc degeneration and loss in height. Mild facet arthrosis. No central canal stenosis or neural foraminal narrowing. L1-L2: Disc desiccation and diffuse annular bulge with prominence within the neural foraminal bilaterally. There is moderate central canal stenosis severe left and moderate right neural foraminal narrowing. Posterior a medial displacement of traversing nerve roots in the right lateral recess is suspected. Correlation with radiculopathy is recommended. L2-L3: Diffuse annular bulge. Facet arthrosis. Ligamentous laxity contributing to moderate central canal stenosis, lateral recess stenosis, moderate left and mild right neural foraminal narrowing. L3-L4: Disc de siccation: Loss of heights. Diffuse annular bulge. Bilateral ligamentous laxity causing moderate central canal stenosis, lateral recess stenosis, moderate right and left neural foraminal narrowing. L4-5: Disc desiccation and diffuse annular bulge. Facet arthrosis and ligament of laxity with severe central canal stenosis. Lateral recess stenosis, and moderate bilateral neural foraminal narrowing. Abutment of the exiting L4 nerve roots in the far lateral compartment is not complete excluded. L5-S1: Disc desiccation loss of height. Uncovering the posterior intervertebral disc space. Disc osteophyte complex causing effacement of the anterior thecal space. Lateral recess stenosis and moderate lateral neural foraminal narrowing. The vascular soft tissues unremarkable. Assessment & Plan Assessment & Plan (1) Degenerative disc disease, cervical: Code(s): M50.30 - Other cervical disc degeneration, unspecified cervical region (2) Degenerative disc disease, lumbar: Code(s): M51.36 - Other intervertebral disc degeneration, lumbar region (3) Chronic pain syndrome: Code(s): G89.4 - Chronic pain syndrome (4) Opiate analgesic contract exists: Code(s): Z79.891 - assisted (current) use of opiate analgesic (5) Lumbar radiculopathy: Code(s): M54.16 - Radiculopathy, lumbar region (6) Lumbar spondylosis: Code(s): M47.816 - Spondylosis without myelopathy or radiculopathy, lumbar region Plan Patient has shown accountability for his medication regimen and the pill count was accurate. There is no evidence of misuse, abuse or diversion at this time. MassPat reviewed. Adequate analgesia without adverse effects. Will send in a prescription for 30 days today with medication sent on 10/25/23. He is aware of monitoring for side effects. Pending Behavioral Assessment evaluation for potential Nevro SCS trial or ITDD with Bupivacaine pain pump or MILD procedure. Patient would like to proceed with Bilateral L4-L5 TFESI injection with local and fluoroscopy in November 2023. Expectations, risks and benefits were reviewed. All questions were answered and the patient is in agreement with the plan. Follow up in one month for a pill count or sooner if needed. Medications: Refilled oxycodone Partial Fill upon patient request. 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
[2023-10-23 11:28] VITALS: BP 123/58; PULSE 70; O2SAT 95; BMI 31.2
== END 2023-10-23 11:43 | disposition home or self-care (01) ==
PROVIDERS: PCP Internal Medicine; Visit Provider Nurse Practitioner Family
DX: G89.4 Chronic pain syndrome (principal); M50.30 Other cervical disc degeneration, unspecified cervical region; M51.36 Other intervertebral disc degeneration, lumbar region; Z79.891 Long term (current) use of opiate analgesic; M54.16 Radiculopathy, lumbar region; M47.816 Spondylosis without myelopathy or radiculopathy, lumbar region
CPT/HCPCS: 99214

== ENCOUNTER → 2023-10-23 11:24 | Outpatient (BNVA) | payer OTHER, MEDICARE, MEDICAID, SELFPAY | PROVIDERS: PCP Internal Medicine; Visit Provider Nurse Practitioner Family | DX: M50.30 Other cervical disc degeneration, unspecified cervical region (principal); M51.36 Other intervertebral disc degeneration, lumbar region; G89.4 Chronic pain syndrome; M47.26 Other spondylosis with radiculopathy, lumbar region; Z79.891 Long term (current) use of opiate analgesic | CPT/HCPCS: 99212 ==

== ENCOUNTER 2023-11-22 10:46 | Outpatient (AMB) | payer OTHER, MEDICARE, MEDICAID, SELFPAY ==
--- NOTE | 2023-11-22 10:54 | MHC.OFFVIS ---
Intake Vital Signs 11/22/23 11:03 Height 5 ft 4 in Weight 179 lb 8 oz BMI 30.8 BP 108/56 L Blood Pressure Location Lt brachial Position Sitting Respiration 16 Pulse 63 Pulse Source Pulse Oximeter Pulse Oximetry (%) 98 Oxygen Delivery Method Room Air Intake Visit Reasons: Medication Count/confirmed Intake Note: Patient comes in for pill count to oxycodone 10 mg tablets. Allergies No Known Allergies Allergy (Verified 11/22/23 11:04) HPI HPI Comments History of Present Illness Details Dinh is in my office for the pill count and pain medication refill. His supposed to have 8 pills in his possession he presented with 6 pills. The pill count therefore is correct. He reports his pain level today is 8/10. He admits minimal to moderate help from the opioid medication 2 to 3 hours after he takes his pills . Denies any side effects of the opioid medication, denies constipation, nausea, sedation, dizziness, or urinary retention. He took his pills in the morning. He again is not very eager to go for neuromodulation which was offered him in the past [facility] S[facility]. He is scheduled for bilateral transforaminal L4-5 epidural steroid injection on 12/05/2023. PRIOR: diagnostic bilateral L3- L4- L5 MBB performed on 05/16/23. He reports no pain improvement whatsoever. pain after the procedure remained in the range 8/10 to 9.5/10. SCS nevro trial was discussed with the patient. He reports that his son has computer at home and will be able to help him with the psychological evaluation. After that we will schedule him for a trial. ?He has severe lumbar stenosis.? I recommended him to go back to a neurosurgeon to discuss his spinal stenosis.? However patient adamantly refused to go for consultation with a neurosurgeon.? 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 At multiple intervertebral interval he has ligamentum flavum hypertrophy which could be addressed with MILD procedure. complains on severe pain in neck and severe pain in the back.? He reports pain in the neck radiates into the right upper extremity and pain in the back is not radiating.? He relates his pain to the injuries he sustained while in accident on 09/05. he fell from garbage truck an fell on his back.? About 2 years ago he was on oxycodone about 120 mg a day and the he was more active and able to walk better.? He reports that he had multiple chiropractic manipulations and physical therapy in the past to alleviate his pain and those were not effective, he has home traction unit but it does not alleviate his pain. He takes Lyrica meloxicam Cymbalta phentermine and amitriptyline to help him to sleep at night. He never had surgery on his back although on MRI from 2010 he had severe foraminal stenosis at C4-C5 level and mild central cord compression.? He refuses surgery.? He told me that the surgeries something he would never except for himself.? He received 1 injection of unknown kind in his lumbar spine but never in injection in his cervical spine. [facility] Medical History (Updated 10/23/23 @ 14:37 by CEDRICK Jarquin) Chronic pain syndrome Spondylosis of lumbar region without myelopathy or radiculopathy Spondylosis, cervical Degenerative disc disease, lumbar Degenerative disc disease, cervical Depression Essential hypertension Chronic radicular cervical pain Allergic rhinitis Anxiety COPD (chronic obstructive pulmonary disease) Insomnia Hyperlipidemia Erectile dysfunction Review of Systems Const All systems reviewed & are unremarkable except as noted in HPI and below Physical Exam Vital Signs: Last Vital Signs Pulse 63 11/22/23 11:03 Resp 16 11/22/23 11:03 BP 108/56 L 11/22/23 11:03 Pulse Ox 98 11/22/23 11:03 Oxygen Delivery Method Room Air 11/22/23 11:03 BMI result Body Mass Index 30.8 Resp Effort & Inspection: normal respiratory effort and able to speak in complete sentences Cardio Jugular venous distension: no JVD Back/Spine/Pelvis Other: Loading test is positive bilaterally, tenderness of palpation on paraspinal spinal region lumbar spine Cervical Spine: No cervical ROM normal Thoracic/Lumbar Spine: thoracic and lumbar spine normal to inspection, pain with thoraco-lumbar ROM and thoraco-lumbar ROM limited Psych Appearance: grossly normal Mental Status: mental status grossly normal Speech and movement: Normal speech and movement present Affect: normal affect Attitude: cooperative Thought process: Normal thought process present Thought content: Normal thought content present Insight: Good insight present (Psych) Judgement: Good judgement present (Psych) Results Reviewed Results Reviewed: MRI lumbar spine 07/04/2021. Vertebral body height is maintained. There is a straightening of the normal lumbar lordosis. There is 4 mm of anterolisthesis of L4 on L5 and trace retrolisthesis of L5 on S1. There is very slight levoscoliotic curvature. Bone marrow signal intensity is within normal limits. 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 There is disc desiccation throughout lumbar spine. Conus medullaris terminates at the level of L1. Cauda equina is unremarkable. Levels: T12-L1: Disc degeneration and loss in height. Mild facet arthrosis. No central canal stenosis or neural foraminal narrowing. L1-L2: Disc desiccation and diffuse annular bulge with prominence within the neural foraminal bilaterally. There is moderate central canal stenosis severe left and moderate right neural foraminal narrowing. Posterior a medial displacement of traversing nerve roots in the right lateral recess is suspected. Correlation with radiculopathy is recommended. L2-L3: Diffuse annular bulge. Facet arthrosis. Ligamentous laxity contributing to moderate central canal stenosis, lateral recess stenosis, moderate left and mild right neural foraminal narrowing. L3-L4: Disc desiccation: Loss of heights. Diffuse annular bulge. Bilateral ligamentous laxity causing moderate central canal stenosis, lateral recess stenosis, moderate right and left neural foraminal narrowing. L4-5: Disc desiccation and diffuse annular bulge. Facet arthrosis and ligament of laxity with severe central canal stenosis. Lateral recess stenosis, and moderate bilateral neural foraminal narrowing. Abutment of the exiting L4 nerve roots in the far lateral compartment is not complete excluded. L5-S1: Disc desiccation loss of height. Uncovering the posterior intervertebral disc space. Disc osteophyte complex causing effacement of the anterior thecal space. Lateral recess stenosis and moderate lateral neural foraminal narrowing. The vascular soft tissues unremarkable. Assessment & Plan Assessment & Plan (1) Degenerative disc disease, cervical: Code(s): M50.30 - Other cervical disc degeneration, unspecified cervical region (2) Degenerative disc disease, lumbar: Code(s): M51.36 - Other intervertebral disc degeneration, lumbar region (3) Chronic pain syndrome: Code(s): G89.4 - Chronic pain syndrome (4) Opiate analgesic contract exists: Code(s): Z79.891 - snf (current) use of opiate analgesic (5) Lumbar radiculopathy: Code(s): M54.16 - Radiculopathy, lumbar region (6) Lumbar spondylosis: Code(s): M47.816 - Spondylosis without myelopathy or radiculopathy, lumbar region Plan Dinh has shown accountability for his medication regimen and the pill count was accurate. There is no evidence of misuse, abuse or diversion at this time. MassPat reviewed. He reports his pain today 07/06. He is looking forward for epidural steroid injection L4-5 transforaminal bilateral which is scheduled on 12/05/23 Will send in a prescription for 30 days today with medication sent on 11/24/23. He is aware of monitoring for side effects. He is negative again about neuromodulation. His hopes are that transforaminal epidural steroid injection will help him. He does not like the idea of having battery implanted. Briefly SCS battery less device was explained to him but I told him that in my opinion this is not effective device for him. Medications: Refilled oxycodone Partial Fill upon patient request. 10 mg PO Q6H PRN 120 tabs 0RF pain 30 days G89.4 - Chronic pain syndrome, M50.30 - Other cervical disc degeneration, unspecified cervical region, M51.36 - Other intervertebral disc degeneration, lumbar region, Z79.891 - snf (current) use of opiate analgesic Coding Level of Care Code Est Pt Level 3 (60179) Diagnoses Degenerative disc disease, cervical M50.30 Degenerative disc disease, lumbar M51.36 Chronic pain syndrome G89.4 Opiate analgesic contract exists Z79.891 Lumbar radiculopathy M54.16 Lumbar spondylosis M47.816
[2023-11-22 11:03] VITALS: BP 108/56; PULSE 63; RESP 16; O2SAT 98; BMI 30.8
== END 2023-11-22 11:09 | disposition home or self-care (01) ==
PROVIDERS: PCP Internal Medicine; Visit Provider Anesthesiology
DX: G89.4 Chronic pain syndrome (principal); M50.30 Other cervical disc degeneration, unspecified cervical region; M51.36 Other intervertebral disc degeneration, lumbar region; Z79.891 Long term (current) use of opiate analgesic; M54.16 Radiculopathy, lumbar region; M47.816 Spondylosis without myelopathy or radiculopathy, lumbar region
CPT/HCPCS: 99213

== ENCOUNTER → 2023-11-22 10:46 | Outpatient (BNVA) | payer OTHER, MEDICARE, MEDICAID, SELFPAY | PROVIDERS: PCP Internal Medicine; Visit Provider Anesthesiology | DX: G89.4 Chronic pain syndrome (principal); M50.30 Other cervical disc degeneration, unspecified cervical region; M51.36 Other intervertebral disc degeneration, lumbar region; M47.26 Other spondylosis with radiculopathy, lumbar region; Z79.891 Long term (current) use of opiate analgesic | CPT/HCPCS: 99212 ==

== ENCOUNTER 2023-11-30 11:04 | Outpatient (AMB) | payer OTHER, SELFPAY ==
--- NOTE | 2023-11-30 11:18 | MHC.OFFVIS ---
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 Allergies No Known Allergies Allergy (Verified 12/05/23 12:58) HPI HPI Comments History of Present Illness Details 68 y/o male patient presents for new in-person visit for sleep consultation. Pt reports difficulty falling asleep and staying sleep. He states that he barely sleep, some days he does not sleep at all. He sleeps only 3 hrs, that is most sleep he can, and also can't have deep sleep. He tried to go to bed early, but tosses and tuns, can't sleep late night. He always wakes up after 2-3 hrs later. He has difficulty falling back to sleep, just staying in his kitchen for the night. He tried OTC sleep aids, but noting helped. He tried amitriptyline 50 mg, mirtazapine 30 mg and clonazepem 3 mg, ambien, trazodone and Lunesta, but nothing helped. He complains for chronic pain. He was on lyrica 300 mg and it helped for sleep but not for pain. Lyrica discontinued and he is on oxycodone 10 mg TID. Sleep questionnaire: Have you ever been diagnosed with a sleep disorder? Insmonia. Have you ever had a sleep study in the past? No. Have you ever been treated for a sleep disorder? Yes. Do you take medications for a sleep disorder? Yes. Do you snore? No. Do you wake up gasping at night? No. Do you have episodes of apneas? No. If yes, are they witnessed? No. Do you have episodes of nocturnal chest pain or dyspnea? No. Do you have difficulty initiating sleep? Yes. Do you have difficulty maintaining sleep? Yes. Do you wake up tired? Yes. Do you have headaches upon awakening? Yes. Do you wake up with dry mouth or throat? No. Do you have GERD? Yes. Do you have nocturia? Yes. Do you have nocturnal leg cramps? No. Do you have symptoms of restless legs? No. Do you act out your dreams? No. Sleep hygiene questionnaire: What is your usual sleep routine? Usual bedtime is at 11 pm; Usual wake up time is at 2:30 am. Do you take naps? No. Is your sleep environment cool, dark, and quiet? Yes. Do you exercise? Walk his dog. Do you take caffeine or other stimulants? No. But smoking 2-3 times a day. Do you use electronics in bed? No. What is your work schedule? Retired. Hypersomnolence questionnaire: Do you have daytime tiredness or fatigue? Yes. Do you easily fall asleep when inactive? No. Have you ever had episodes of sudden weakness? No. Have you ever had episodes of sudden weakness associated with strong emotions? No. PFSH Medical History (Updated 12/08/23 @ 09:31 by Rickie Weaver CNP) Chronic pain syndrome Spondylosis of lumbar region without myelopathy or radiculopathy Spondylosis, cervical Degenerative disc disease, lumbar Degenerative disc disease, cervical Depression Essential hypertension Chronic radicular cervical pain Allergic rhinitis Anxiety COPD (chronic obstructive pulmonary disease) Insomnia Hyperlipidemia Erectile dysfunction Surgical History (Updated 11/30/23 @ 11:23 by YOLANDA Pretty) H/O shoulder surgery Family History (Updated 11/30/23 @ 11:24 by YOLANDA Pretty) Maternal Grandfather Diabetes Mother Cancer Brother Bladder cancer Breast CA Sister No problems noted. Social History (Updated 11/30/23 @ 11:25 by YOLANDA Pretty) Alcohol intake: never Patient Tobacco Use Status: Current someday Tobacco user Substance Use Type: Marijuana Review of Systems Const All systems reviewed & are unremarkable except as noted in HPI and below Physical Exam Vital Signs: Last Vital Signs BP 104/82 11/30/23 11:19 BMI result Body Mass Index 30.7 Const General: cooperative and tired appearing Nutritional Appearance: obese Orientation/consciousness: patient oriented x3 Neck Neck: Yes full ROM Resp Effort & Inspection: normal respiratory effort and able to speak in complete sentences Neuro General: patient oriented x3, gait normal and moves all extremities Cranial nerves: Yes CN's II-XII intact bilaterally Cognition (Neuro): normal cognition Gait exam (Neuro): Normal gait present Motor exam (neuro): 5/5 motor strength present throughout Assessment & Plan Assessment & Plan (1) Insomnia: Code(s): G47.00 - Insomnia, unspecified Plan Advised patient to try gabapentin 600 mg qHS along with magnesium 400 mg qHS. Sleep hygiene education provided. Advised patient to limit smoking in the evening. Pt did not want to try gabapentin, and lyrica 25 mg ordered. Medications: New gabapentin 600 mg (2 x 300 mg) PO BEDTIME 60 caps 2RF 30 days magnesium oxide 400 mg PO BEDTIME 30 tabs 2RF 30 days Discontinued pregabalin (Lyrica) Discontinued Reason: Doctor's Order 25 mg PO BEDTIME 30 days 30 caps 1RF Coding Level of Care Code New Pt Level 3 (20419) Diagnoses Insomnia G47.00
[2023-11-30 11:19] VITALS: BP 104/82; BMI 30.7
== END 2023-11-30 11:47 | disposition home or self-care (01) ==
PROVIDERS: PCP Internal Medicine; Visit Provider Nurse Practitioner Family
DX: G47.00 Insomnia, unspecified (principal)
CPT/HCPCS: 99203

== ENCOUNTER → 2023-11-30 11:04 | Outpatient (BNVA) | payer MEDICARE, MEDICAID, OTHER, SELFPAY | PROVIDERS: PCP Internal Medicine; Visit Provider Nurse Practitioner Family | DX: G47.00 Insomnia, unspecified (principal) | CPT/HCPCS: 99202 ==

== ENCOUNTER 2023-12-05 06:12 | Outpatient (REF) | payer MEDICARE, MEDICAID, OTHER, SELFPAY ==
--- NOTE | ~2023-12-05 | FL_ITS ---
EXAMINATION: XR FLUOROSCOPY WITH IMAGES CLINICAL INFORMATION: Radiculopathy, lumbar region. COMPARISON: None available. TECHNIQUE: Fluoroscopy Supervised By: Dr. Moiz Morales. Fluoroscopy Time: 0.8 minutes. Cumulative Dose: 12.2 mGy. DAP: 0.186 mGym2 Images: 3. FINDINGS: Technical assistance and equipment were provided by the Department of Radiology during intraoperative fluoroscopy. A total of 3 limited fluoroscopic spot images are submitted for archival purposes. A radiologist was not present during the procedure. The images are available for review on PACS. FL/FL guidance in treatment room IMPRESSION: Technical assistance and equipment provided by the Department of Radiology during procedural fluoroscopy, as above. Please see procedure report for further details.
== END 2023-12-05 06:13 | disposition home or self-care (01) ==
LOC: CF 06:12
PROVIDERS: Visit Provider Anesthesiology
DX: M47.26 Other spondylosis with radiculopathy, lumbar region (principal); M51.36 Other intervertebral disc degeneration, lumbar region
CPT/HCPCS: 64483; J3301; Q9967

== ENCOUNTER 2023-12-05 10:47 | Outpatient (AMB) | payer OTHER, SELFPAY ==
--- NOTE | 2023-12-05 10:57 | MHC.OFFVIS ---
Intake Vital Signs 12/05/23 12:56 12/05/23 12:57 Height 5 ft 4 in 5 ft 4 in Weight 179 lb 179 lb BMI 30.7 30.7 BP 104/58 L 112/58 L Blood Pressure Location Lt brachial Lt brachial Position Sitting Sitting Respiration 16 16 Pulse 53 53 Pulse Source Pulse Oximeter Pulse Oximeter Pulse Oximetry (%) 97 97 Oxygen Delivery Method Room Air Room Air Comment pre-op post-op Intake Visit Reasons: BILATERAL L4-L5 TFESI Allergies No Known Allergies Allergy (Verified 12/05/23 12:58) [facility] Medical History (Updated 10/23/23 @ 14:37 by CEDRICK Jarquin) Chronic pain syndrome Spondylosis of lumbar region without myelopathy or radiculopathy Spondylosis, cervical Degenerative disc disease, lumbar Degenerative disc disease, cervical Depression Essential hypertension Chronic radicular cervical pain Allergic rhinitis Anxiety COPD (chronic obstructive pulmonary disease) Insomnia Hyperlipidemia Erectile dysfunction Surgical History (Updated 11/30/23 @ 11:23 by YOLANDA Pretty) H/O shoulder surgery Family History (Updated 11/30/23 @ 11:24 by YOLANDA Pretty) Maternal Grandfather Diabetes Mother Cancer Brother Bladder cancer Breast CA Sister No problems noted. Social History (Updated 11/30/23 @ 11:25 by YOLANDA Pretty) Alcohol intake: never Patient Tobacco Use Status: Current someday Tobacco user Substance Use Type: Marijuana Physical Exam Vital Signs: Last Vital Signs Pulse 53 12/05/23 12:57 Resp 16 12/05/23 12:57 BP 112/58 L 12/05/23 12:57 Pulse Ox 97 12/05/23 12:57 Oxygen Delivery Method Room Air 12/05/23 12:57 BMI result Body Mass Index 30.7 Assessment & Plan Assessment & Plan (1) Lumbar spondylosis: Code(s): M47.816 - Spondylosis without myelopathy or radiculopathy, lumbar region Plan: (2) Lumbar radiculopathy: Code(s): M54.16 - Radiculopathy, lumbar region Plan: Transforaminal epidural steroid injection bilateral L4-5. THE PATIENT CAME TO THE OPERATING ROOM AFTER OBTAINING INFORMED CONSENT. THE RISKS OF THE PROCEDURE WERE DELINEATED THE RISK OF BLEEDING INFECTION PERIPHERAL NERVE DAMAGE EPIDURAL HEMATOMA EPIDURAL ABSCESS AND OTHER UNSPECIFIED RISKS. THE PATIENT WAS POSITIONED PRONE ON THE OPERATING TABLE . TIME-OUT WAS OBTAINED DELINEATING CORRECT SIDE AND SITE OF THE PROCEDURE, PATIENT NAME AND DATE OF , NEED OF THE ANTIBIOTIC, RISK OF FIRE. The PATIENT PARTICIPATED IN THE TIME OUT PROCEDURE. LUMBAR AREA OF THE PATIENT WAS PREPPED WITH CHLORAPREP AND DRAPED WITH STERILE DRAPES, STERILELY DRAPED C-ARM WAS BROUGHT OVER THE OPERATING FIELD AND SQ PICTURE OF L4 VERTEBRA WAS DELINEATED ON THE SCREEN. C-ARM WAS TILTED 20? CEPHALAD AND 25 DEGREES TO THE RIGHT TO DEMONSTRATE THE MOST PROMINENT IMAGE OF the pedicle on THE RIGHT. 3mm below the lowest point of pedicle PROJECTION TO THE SKIN WAS CHOSEN A STARTING POINT OF THE INJECTION. 22 GAUGE 5 IN SPINAL NEEDLE WAS INSERTED THROUGH THE SKIN AND STARTED TO ADVANCE TO THE FORAMINA IN ANTERIOR POSTERIOR, OBLIQUE AND LATERAL VIEWS IN TUNNEL VISION FASHION. WHEN ON LATERAL VIEW THE NEEDLE ENTERED THE MOST POSTERIOR AND SUPERIOR PORTION OF THE FORAMINA INJECTION OF THE CONTRAST PERFORMED DELINEATING ANTERIOR EPIDURAL SPREAD OF THE CONTRAST. AFTER THAT TREATMENT SOLUTION CONTAINING 3 ML OF PRESERVATIVE-FREE LIDOCAINE 1% MIXED WITH KENALOG 40 MG WAS INJECTED INTO THE NEEDLE. UPON COMPLETION OF THE NEEDLE POSITIONING THE PROCEDURE WAS REPEATED ON THE SAME LEVEL LEFT SIDE IN THE MIRRORING FASHION. WHEN THE LEFT NEEDLE POSITION WAS VERIFIED THE SAME WAY IT WAS DONE FOR THE RIGHT NEEDLE THE INJECTION OF THE CONTRAST WAS PERFORMED DELINEATINF EPIDURAL AND PERINEURAL SPREAD OF THE CONTRAST. SAME DOSE OF LIDOCAINE MIXED WITH KENALOG 40 mg WAS INJECTED. UPON COMPLETION OF THE INJECTION THE NEEDLE WAS REMOVED AND BANDAIDS WERE APPLIED. PATIENT TOLERATED PROCEDURE WELL, HE WASTAKEN OUTSIDE OF THE OPERATING ROOM TO PACU WHERE HE RECOVERED UNEVENTFULLY. HE WENT HOME WITHOUT IMMEDIATE COMPLICATIONS. (3) Degenerative disc disease, lumbar: Code(s): M51.36 - Other intervertebral disc degeneration, lumbar region Plan Orders: Orders FL guidance in treatment room 12/05/23 M54.16 - Radiculopathy, lumbar region Coding Level of Care Code Procedure Only Diagnoses Lumbar spondylosis M47.816 Lumbar radiculopathy M54.16 Degenerative disc disease, lumbar M51.36
[2023-12-05 12:56] VITALS: BP 104/58; PULSE 53; RESP 16; O2SAT 97; BMI 30.7
[2023-12-05 12:57] VITALS: BP 112/58; PULSE 53; RESP 16; O2SAT 97; BMI 30.7
== END 2023-12-05 12:08 | disposition home or self-care (01) ==
LOC: HO.PMCPRC 10:47
PROVIDERS: PCP Internal Medicine; Visit Provider Anesthesiology
DX: M54.16 Radiculopathy, lumbar region (principal); M47.816 Spondylosis without myelopathy or radiculopathy, lumbar region; M51.36 Other intervertebral disc degeneration, lumbar region
CPT/HCPCS: 64483

== ENCOUNTER 2023-12-11 10:48 | Outpatient (AMB) | payer OTHER, MEDICARE, MEDICAID, SELFPAY ==
--- NOTE | 2023-12-11 10:54 | MHC.OFFVIS ---
Intake Vital Signs 12/11/23 11:04 Height 5 ft 4 in Weight 181 lb BMI 31.1 BP 122/62 Blood Pressure Location Lt brachial Position Sitting Respiration 12 Pulse 60 Pulse Source Pulse Oximeter Pulse Oximetry (%) 98 Oxygen Delivery Method Room Air Intake Visit Reasons: Pill count/Confirmed Intake Note: Patient comes in for pill count to Oxycodone 10 mg tablets. Allergies No Known Allergies Allergy (Verified 12/11/23 11:06) HPI HPI Comments History of Present Illness Details Dinh is in my office for the pill count and pain medication refill. His supposed to have 52 pills in his possession he presented with 50 pills. The pill count therefore is correct. He reports his pain level today is 8/10. He admits minimal to moderate help from the opioid medication 2 to 3 hours after he takes his pills . Denies any side effects of the opioid medication, denies constipation, nausea, sedation, dizziness, or urinary retention. He took his pills in the morning. He again is not very eager to go for neuromodulation which was offered him in the past [facility]. He went for transforaminal epidural steroid injection L4-5 bilateral on 12/05/2023. He reports at least 50% of pain improvement, he reports that his pain level today 7.5/10 however he reports that this is because of the weather changes and the pain relieve is much more profound as a result of the injection. I informed him that we can continue to perform this injections once in 3 months. He is very reluctant to go for neuromodulation. I will prescribe again him his opioid medications they are due on 12/24/2023. PRIOR: diagnostic bilateral L3- L4- L5 MBB performed on 05/16/23. He reports no pain improvement whatsoever. pain after the procedure remained in the range 8/10 to 9.5/10. SCS nevro trial was discussed with the patient. He reports that his son has computer at home and will be able to help him with the psychological evaluation. After that we will schedule him for a trial. ?He has severe lumbar stenosis.? I recommended him to go back to a neurosurgeon to discuss his spinal stenosis.? However patient adamantly refused to go for consultation with a neurosurgeon.? 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 At multiple intervertebral interval he has ligamentum flavum hypertrophy which could be addressed with MILD procedure. complains on severe pain in neck and severe pain in the back.? He reports pain in the neck radiates into the right upper extremity and pain in the back is not radiating.? He relates his pain to the injuries he sustained while in accident on 09/05. he fell from garbage truck an fell on his back.? About 2 years ago he was on oxycodone about 120 mg a day and the he was more active and able to walk better.? He reports that he had multiple chiropractic manipulations and physical therapy in the past to alleviate his pain and those were not effective, he has home traction unit but it does not alleviate his pain. He takes Lyrica meloxicam Cymbalta phentermine and amitriptyline to help him to sleep at night. He never had surgery on his back although on MRI from 2010 he had severe foraminal stenosis at C4-C5 level and mild central cord compression.? He refuses surgery.? He told me that the surgeries something he would never except for himself.? He received 1 injection of unknown kind in his lumbar spine but never in injection in his cervical spine. [facility] Medical History (Updated 12/08/23 @ 09:31 by Rickie Weaver CNP) Chronic pain syndrome Spondylosis of lumbar region without myelopathy or radiculopathy Spondylosis, cervical Degenerative disc disease, lumbar Degenerative disc disease, cervical Depression Essential hypertension Chronic radicular cervical pain Allergic rhinitis Anxiety COPD (chronic obstructive pulmonary disease) Insomnia Hyperlipidemia Erectile dysfunction Surgical History (Updated 11/30/23 @ 11:23 by YOLANDA Pretty) H/O shoulder surgery Family History (Updated 11/30/23 @ 11:24 by YOLANDA Pretty) Maternal Grandfather Diabetes Mother Cancer Brother Bladder cancer Breast CA Sister No problems noted. Social History (Updated 11/30/23 @ 11:25 by YOLANDA Pretty) Alcohol intake: never Patient Tobacco Use Status: Current someday Tobacco user Substance Use Type: Marijuana Review of Systems Const All systems reviewed & are unremarkable except as noted in HPI and below Physical Exam Vital Signs: Last Vital Signs Pulse 60 12/11/23 11:04 Resp 12 12/11/23 11:04 BP 122/62 12/11/23 11:04 Pulse Ox 98 12/11/23 11:04 Oxygen Delivery Method Room Air 12/11/23 11:04 BMI result Body Mass Index 31.1 Resp Effort & Inspection: normal respiratory effort and able to speak in complete sentences Cardio Jugular venous distension: no JVD Back/Spine/Pelvis Other: Loading test is positive bilaterally, tenderness of palpation on paraspinal spinal region lumbar spine Cervical Spine: No cervical ROM normal Thoracic/Lumbar Spine: thoracic and lumbar spine normal to inspection, pain with thoraco-lumbar ROM and thoraco-lumbar ROM limited Psych Appearance: grossly normal Mental Status: mental status grossly normal Speech and movement: Normal speech and movement present Affect: normal affect Attitude: cooperative Thought process: Normal thought process present Thought content: Normal thought content present Insight: Good insight present (Psych) Judgement: Good judgement present (Psych) Assessment & Plan Assessment & Plan (1) Degenerative disc disease, cervical: Code(s): M50.30 - Other cervical disc degeneration, unspecified cervical region (2) Degenerative disc disease, lumbar: Code(s): M51.36 - Other intervertebral disc degeneration, lumbar region (3) Chronic pain syndrome: Code(s): G89.4 - Chronic pain syndrome (4) Opiate analgesic contract exists: Code(s): Z79.891 - buttermaker (current) use of opiate analgesic (5) Lumbar radiculopathy: Code(s): M54.16 - Radiculopathy, lumbar region (6) Lumbar spondylosis: Code(s): M47.816 - Spondylosis without myelopathy or radiculopathy, lumbar region Plan Dinh has shown accountability for his medication regimen and the pill count was accurate. There is no evidence of misuse, abuse or diversion at this time. MassPat reviewed. Epidural steroid injection resulted in good pain relief, he reports that he is very satisfied with the injection. He reports his pain elevated today due to weather, but on regular basis he reports much more advanced pain relief. The pill count is correct today he is due for his new prescription on 12/24/2023. He is negative again about neuromodulation. He does not like the idea of having battery implanted. Briefly SCS battery less device was explained to him but I told him that in my opinion this is not effective device for him. Medications: Refilled oxycodone Partial Fill upon patient request. 10 mg PO Q6H PRN 120 tabs 0RF pain 30 days G89.4 - Chronic pain syndrome, M50.30 - Other cervical disc degeneration, unspecified cervical region, M51.36 - Other intervertebral disc degeneration, lumbar region, Z79.891 - buttermaker (current) use of opiate analgesic Coding Level of Care Code Est Pt Level 3 (65162) Diagnoses Degenerative disc disease, cervical M50.30 Degenerative disc disease, lumbar M51.36 Chronic pain syndrome G89.4 Opiate analgesic contract exists Z79.891 Lumbar radiculopathy M54.16 Lumbar spondylosis M47.816
[2023-12-11 11:04] VITALS: BP 122/62; PULSE 60; RESP 12; O2SAT 98; BMI 31.1
== END 2023-12-11 11:24 | disposition home or self-care (01) ==
PROVIDERS: PCP Internal Medicine; Visit Provider Anesthesiology
DX: G89.4 Chronic pain syndrome (principal); M50.30 Other cervical disc degeneration, unspecified cervical region; M51.36 Other intervertebral disc degeneration, lumbar region; Z79.891 Long term (current) use of opiate analgesic; M54.16 Radiculopathy, lumbar region; M47.816 Spondylosis without myelopathy or radiculopathy, lumbar region
CPT/HCPCS: 99213

== ENCOUNTER → 2023-12-11 10:48 | Outpatient (BNVA) | payer OTHER, MEDICARE, MEDICAID, SELFPAY | PROVIDERS: PCP Internal Medicine; Visit Provider Anesthesiology | DX: M50.30 Other cervical disc degeneration, unspecified cervical region (principal); M51.36 Other intervertebral disc degeneration, lumbar region; G89.4 Chronic pain syndrome; M54.16 Radiculopathy, lumbar region; M47.816 Spondylosis without myelopathy or radiculopathy, lumbar region; Z79.891 Long term (current) use of opiate analgesic | CPT/HCPCS: 99212 ==

== ENCOUNTER 2024-01-10 10:42 | Outpatient (AMB) | payer OTHER, MEDICARE, MEDICAID, SELFPAY ==
--- NOTE | 2024-01-10 10:46 | MHC.OFFVIS ---
Intake Vital Signs 01/10/24 10:56 Height 5 ft 4 in Weight 164 lb 8 oz BMI 28.2 BP 132/72 Blood Pressure Location Lt brachial Position Sitting Respiration 16 Pulse 100 Pulse Source Pulse Oximeter Pulse Oximetry (%) 97 Oxygen Delivery Method Room Air Intake Visit Reasons: PILL COUNT Intake Note: Patient came in for pill count. Reports pain 10/10. Allergies No Known Allergies Allergy (Verified 01/10/24 10:58) HPI HPI Comments History of Present Illness Details Dinh is in my office for the pill count and pain medication refill. He complains on severe pain in the projection of the right chest and right side of the back. He reports that he had trauma with rib fractures about 19 years ago. He had this pain waxing and waning with time but never as severe as he has today. He is unable to sit comfortably in the chair. He constantly hold his right side of the chest. It looks like that he is in significant distress. I palpated his right side of the chest and it is approximately 6 and 7 ribs which causes him much of the discomfort although without x-ray machine I can not possibly make a conclusion of the location with certainty. I will schedule him for urgent intercostal rib injection presumably 6 and 7 rib possibly 5th rib or 8 rib. I requested him to bring me a disc and report tomorrow he had with [facility] for me to probably establish more precisely the levels of the injection. He reports a bad night sleep with this pain. He requests me to start him on Lyrica/pregabalin 300 mg which used to help him with the pain and help him to relax at night. I will send this prescription alongside with his regular opioid prescription. Pill count today His supposed to have 52 pills in his possession he presented with 50 pills. The pill count therefore is correct. He reports his pain level today is 8/10. He admits minimal to moderate help from the opioid medication 2 to 3 hours after he takes his pills . Denies any side effects of the opioid medication, denies constipation, nausea, sedation, dizziness, or urinary retention. He took his pills in the morning. He again is not very eager to go for neuromodulation which was offered him in the past [facility]. He went for transforaminal epidural steroid injection L4-5 bilateral on 12/05/2023. He reports at least 50% of pain improvement, he reports that his pain level today 7.5/10 however he reports that this is because of the weather changes and the pain relieve is much more profound as a result of the injection. I informed him that we can continue to perform this injections once in 3 months. He is very reluctant to go for neuromodulation. I will prescribe again him his opioid medications they are due on 12/24/2023. PRIOR: diagnostic bilateral L3- L4- L5 MBB performed on 05/16/23. He reports no pain improvement whatsoever. pain after the procedure remained in the range 8/10 to 9.5/10. SCS nevro trial was discussed with the patient. He reports that his son has computer at home and will be able to help him with the psychological evaluation. After that we will schedule him for a trial. ?He has severe lumbar stenosis.? I recommended him to go back to a neurosurgeon to discuss his spinal stenosis.? However patient adamantly refused to go for consultation with a neurosurgeon.? 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 At multiple intervertebral interval he has ligamentum flavum hypertrophy which could be addressed with MILD procedure. complains on severe pain in neck and severe pain in the back.? He reports pain in the neck radiates into the right upper extremity and pain in the back is not radiating.? He relates his pain to the injuries he sustained while in accident on 09/05. he fell from garbage truck an fell on his back.? About 2 years ago he was on oxycodone about 120 mg a day and the he was more active and able to walk better.? He reports that he had multiple chiropractic manipulations and physical therapy in the past to alleviate his pain and those were not effective, he has home traction unit but it does not alleviate his pain. He takes Lyrica meloxicam Cymbalta phentermine and amitriptyline to help him to sleep at night. He never had surgery on his back although on MRI from 2010 he had severe foraminal stenosis at C4-C5 level and mild central cord compression.? He refuses surgery.? He told me that the surgeries something he would never except for himself.? He received 1 injection of unknown kind in his lumbar spine but never in injection in his cervical spine. [facility] Medical History (Updated 01/10/24 @ 12:50 by Moiz Morales MD) Chronic pain syndrome Spondylosis of lumbar region without myelopathy or radiculopathy Spondylosis, cervical Degenerative disc disease, lumbar Degenerative disc disease, cervical Depression Essential hypertension Chronic radicular cervical pain Allergic rhinitis Anxiety COPD (chronic obstructive pulmonary disease) Insomnia Hyperlipidemia Erectile dysfunction Surgical History (Updated 11/30/23 @ 11:23 by YOLANDA Pretty) H/O shoulder surgery Family History (Updated 11/30/23 @ 11:24 by YOLANDA Pretty) Maternal Grandfather Diabetes Mother Cancer Brother Bladder cancer Breast CA Sister No problems noted. Social History (Updated 11/30/23 @ 11:25 by YOLANDA Pretty) Alcohol intake: never Patient Tobacco Use Status: Current someday Tobacco user Substance Use Type: Marijuana Review of Systems Const Reports body aches, Reports difficulty sleeping, Reports fatigue and Reports malaise Card Reports no additional complaints Resp Reports as per HPI GI Reports no additional complaints Musc Reports as per HPI Neuro Reports no additional complaints Psych Reports no additional complaints Endo Reports fatigue Physical Exam Vital Signs: Last Vital Signs Pulse 100 01/10/24 10:56 Resp 16 01/10/24 10:56 BP 132/72 01/10/24 10:56 Pulse Ox 97 01/10/24 10:56 Oxygen Delivery Method Room Air 01/10/24 10:56 BMI result Body Mass Index 28.2 Const General: in distress severe; No comfortable Chest Other: Tenderness on palpation on the right side of the chest. Most severe tenderness on palpation in presumable 6th and 7th rib. Resp Effort & Inspection: normal respiratory effort and able to speak in complete sentences Cardio Jugular venous distension: no JVD Back/Spine/Pelvis Other: Loading test is positive bilaterally, tenderness of palpation on paraspinal spinal region lumbar spine Cervical Spine: No cervical ROM normal Thoracic/Lumbar Spine: thoracic and lumbar spine normal to inspection, pain with thoraco-lumbar ROM and thoraco-lumbar ROM limited Psych Appearance: grossly normal Mental Status: mental status grossly normal Speech and movement: Normal speech and movement present Affect: normal affect Attitude: cooperative Thought process: Normal thought process present Thought content: Normal thought content present Insight: Good insight present (Psych) Judgement: Good judgement present (Psych) Assessment & Plan Assessment & Plan (1) Degenerative disc disease, cervical: Code(s): M50.30 - Other cervical disc degeneration, unspecified cervical region (2) Degenerative disc disease, lumbar: Code(s): M51.36 - Other intervertebral disc degeneration, lumbar region (3) Chronic pain syndrome: Code(s): G89.4 - Chronic pain syndrome (4) Opiate analgesic contract exists: Code(s): Z79.891 - terminal gauger (current) use of opiate analgesic (5) Lumbar radiculopathy: Code(s): M54.16 - Radiculopathy, lumbar region (6) Lumbar spondylosis: Code(s): M47.816 - Spondylosis without myelopathy or radiculopathy, lumbar region (7) Right-sided chest pain: Code(s): R07.9 - Chest pain, unspecified (8) Insomnia: Code(s): G47.00 - Insomnia, unspecified (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 There is no evidence of misuse, abuse or diversion at this time. X[employer]Pat reviewed. Epidural steroid injection resulted in good pain relief, he reports that he is very satisfied with the injection. He reports his pain elevated today due to weather, but on regular basis he reports much more advanced pain relief. The pill count is correct today he is due for his new prescription on 01/23/2024 I will schedule him for intercostal injection with level to be determined as soon as possible he is in obvious acute distress... Otherwise I will see him in 1 month. I will start him on Lyrica/pregabalin as it was discussed today. See above. He is negative again about neuromodulation. He does not like the idea of having battery implanted. Briefly SCS battery less device was explained to him but I told him that in my opinion this is not effective device for him. Medications: New pregabalin 300 mg PO BID 60 caps 1RF 30 days Refilled oxycodone Partial Fill upon patient request. 10 mg PO Q6H PRN 120 tabs 0RF pain 30 days G89.4 - Chronic pain syndrome, M50.30 - Other cervical disc degeneration, unspecified cervical region, M51.36 - Other intervertebral disc degeneration, lumbar region, Z79.891 - terminal gauger (current) use of opiate analgesic Patient Instructions: I here by testify that I spent 42 minutes today in conversation with this patient as well as evaluating his prior records, planning his care, organizing this note. Coding Level of Care Code Est Pt Level 5 (04495) Diagnoses Degenerative disc disease, cervical M50.30 Degenerative disc disease, lumbar M51.36 Chronic pain syndrome G89.4 Opiate analgesic contract exists Z79.891 Lumbar radiculopathy M54.16 Lumbar spondylosis M47.816 Right-sided chest pain R07.9 Insomnia G47.00 Intercostal neuralgia G58.8
[2024-01-10 10:56] VITALS: BP 132/72; PULSE 100; RESP 16; O2SAT 97; BMI 28.2
== END 2024-01-10 11:19 | disposition home or self-care (01) ==
PROVIDERS: PCP Internal Medicine; Visit Provider Anesthesiology
DX: M50.30 Other cervical disc degeneration, unspecified cervical region (principal); M51.36 Other intervertebral disc degeneration, lumbar region; G89.4 Chronic pain syndrome; Z79.891 Long term (current) use of opiate analgesic; M54.16 Radiculopathy, lumbar region; M47.816 Spondylosis without myelopathy or radiculopathy, lumbar region; R07.9 Chest pain, unspecified; G47.00 Insomnia, unspecified; G58.8 Other specified mononeuropathies
CPT/HCPCS: 99215

== ENCOUNTER → 2024-01-10 10:42 | Outpatient (BNVA) | payer OTHER, MEDICARE, MEDICAID, SELFPAY | PROVIDERS: PCP Internal Medicine; Visit Provider Anesthesiology | DX: G89.4 Chronic pain syndrome (principal); M50.30 Other cervical disc degeneration, unspecified cervical region; M51.36 Other intervertebral disc degeneration, lumbar region; M47.26 Other spondylosis with radiculopathy, lumbar region; G58.8 Other specified mononeuropathies; G47.00 Insomnia, unspecified; R07.9 Chest pain, unspecified; Z79.891 Long term (current) use of opiate analgesic | CPT/HCPCS: 99212 ==

== ENCOUNTER 2024-01-16 10:27 | Outpatient (AMB) | payer MEDICARE, MEDICAID, SELFPAY ==
--- NOTE | 2024-01-16 10:33 | MHC.OFFVIS ---
Intake Vital Signs 01/16/24 10:37 Height 5 ft 4 in Weight 168 lb 8 oz BMI 28.9 BP 120/80 Blood Pressure Location Rt brachial Position Sitting Pulse 61 Pulse Source Pulse Oximeter Pulse Oximetry (%) 99 Oxygen Delivery Method Room Air Intake Visit Reasons: 2M follow up-CONF Intake Note: Patient presents for 2 month f/u. Having trouble sleeping Allergies No Known Allergies Allergy (Verified 01/16/24 10:36) HPI HPI Comments History of Present Illness Details 68 y/o male patient presents for follow up of insomnia. Pt reports ambien ER 6.25 but did not help at all and he used 2 tabs of ambien, but still he can't sleep. Pt states that today is the 9th day he did not sleep at all. He states that he barely sleep, some days he does not sleep at all. He usually sleeps only 3 hrs, that is most sleep he can, and also can't have deep sleep. He tried to go to bed early, but tosses and tuns, can't sleep late night. He always wakes up after 2-3 hrs later. He has difficulty falling back to sleep, just staying in his kitchen for the night. He tried OTC sleep aids, but noting helped. He tried amitriptyline 50 mg, mirtazapine 30 mg and clonazepem 3 mg, ambien, trazodone and Lunesta, but nothing helped. He complains for chronic pain. He was on lyrica 300 mg and it helped for sleep in the past, but not anymore. Pt is bren takes oxycodone 10 mg QID. [facility] Medical History (Updated 01/10/24 @ 12:50 by Moiz Morales MD) Chronic pain syndrome Spondylosis of lumbar region without myelopathy or radiculopathy Spondylosis, cervical Degenerative disc disease, lumbar Degenerative disc disease, cervical Depression Essential hypertension Chronic radicular cervical pain Allergic rhinitis Anxiety COPD (chronic obstructive pulmonary disease) Insomnia Hyperlipidemia Erectile dysfunction Surgical History H/O shoulder surgery Family History Maternal Grandfather Diabetes Mother Cancer Brother Bladder cancer Breast CA Sister No problems noted. Social History Alcohol intake: never Patient Tobacco Use Status: Current someday Tobacco user Substance Use Type: Marijuana Review of Systems Const All systems reviewed & are unremarkable except as noted in HPI and below Physical Exam Vital Signs: Last Vital Signs Pulse 61 01/16/24 10:37 BP 120/80 01/16/24 10:37 Pulse Ox 99 01/16/24 10:37 Oxygen Delivery Method Room Air 01/16/24 10:37 BMI result Body Mass Index 28.9 Const General: cooperative Nutritional Appearance: obese Orientation/consciousness: patient oriented x3 Neck Neck: Yes full ROM Resp Effort & Inspection: normal respiratory effort and able to speak in complete sentences Neuro General: patient oriented x3, gait normal and moves all extremities Cranial nerves: Yes CN's II-XII intact bilaterally Cognition (Neuro): normal cognition Gait exam (Neuro): Normal gait present Motor exam (neuro): 5/5 motor strength present throughout Assessment & Plan Assessment & Plan (1) Insomnia: Code(s): G47.00 - Insomnia, unspecified Plan Advised patient to try gabapentin 600 mg qHS along with magnesium 400 mg qHS. Sleep hygiene education provided. Advised patient to limit smoking in the evening. Pt is on oxycodone 10 mg QID, and lyrica 300 mg BID, we will avoid Belsomra to prevent serious side effects including respiratory distress. Refer patient to psychologist for CBTi. Orders: Referrals Psychology Referral G47.00 - Insomnia, unspecified Medications: Discontinued zolpidem ER (Ambien CR) Discontinued Reason: Doctor's Order 6.25 mg PO BEDTIME 30 days 30 tabs 0RF Coding Level of Care Code Est Pt Level 3 (16610) Diagnoses Insomnia G47.00
[2024-01-16 10:37] VITALS: BP 120/80; PULSE 61; O2SAT 99; BMI 28.9
== END 2024-01-16 10:52 | disposition home or self-care (01) ==
PROVIDERS: PCP Internal Medicine; Visit Provider Nurse Practitioner Family
DX: G47.00 Insomnia, unspecified (principal)
CPT/HCPCS: 99213

== ENCOUNTER → 2024-01-16 10:27 | Outpatient (BNVA) | payer MEDICARE, MEDICAID, OTHER, SELFPAY | PROVIDERS: PCP Internal Medicine; Visit Provider Nurse Practitioner Family | DX: G47.00 Insomnia, unspecified (principal) | CPT/HCPCS: 99212 ==

== ENCOUNTER 2024-01-18 10:44 | Outpatient (REF) | payer MEDICARE, MEDICAID, SELFPAY ==
[2024-01-18 12:14] LABS: Anion Gap 14 (12-20); Blood Urea Nitrogen 18 mg/dL (9-16); Calcium 8.9 mg/dL (8.4-10.2); Carbon Dioxide 27 mmol/L (22-29); Chloride 99 mmol/L (96-108); Estimated Glomerular Filt Rate > 60; Glucose Random 109 mg/dL (60-115); Sodium 135 mmol/L (135-145)
== END 2024-01-18 10:45 | disposition home or self-care (01) ==
LOC: HO.LAB 10:44
PROVIDERS: Visit Provider Anesthesiology
DX: E87.5 Hyperkalemia (principal)
CPT/HCPCS: 36415; 80048

== ENCOUNTER → 2024-01-25 13:00 | Outpatient (BNVA) | payer MEDICARE, MEDICAID, SELFPAY | PROVIDERS: PCP Internal Medicine; Visit Provider Nurse Practitioner Family ==

== ENCOUNTER 2024-02-02 07:47 | Day surgery (SDC) | payer MEDICARE, MEDICAID, SELFPAY ==
--- NOTE | 2024-01-11 12:06 | P.CONAN_ITS ---
Documented by User: Melinda Piedra NP 01/29/24 10:13 HPI - Anesthesia Eval Consult details Narrative: 68yo M for Right Intercostal Nerve Block at Rib 6 and Rib 7 (possible Rib 5 and possible rib 8), 02/02/24 REPLACED BY [facility] Active Problems Active Problems: All Active Problems (Updated 01/10/24 @ 12:50 by Moiz Mroales MD) Intercostal neuralgia (Acute) Right-sided chest pain (Acute) Insomnia (Acute) Lumbar spondylosis (Acute) Lumbar radiculopathy (Acute) Opiate analgesic contract exists (Acute) Chronic pain syndrome (Acute) Spondylosis of lumbar region without myelopathy or radiculopathy (Acute) Spondylosis, cervical (Acute) Degenerative disc disease, lumbar (Acute) Degenerative disc disease, cervical (Acute) Past Medical History Medical History (Updated 02/01/24 @ 16:03 by CEDRICK Us) Chronic pain syndrome Spondylosis of lumbar region without myelopathy or radiculopathy Spondylosis, cervical Degenerative disc disease, lumbar Degenerative disc disease, cervical Depression Essential hypertension Chronic radicular cervical pain Allergic rhinitis Anxiety COPD (chronic obstructive pulmonary disease) Insomnia Hyperlipidemia Erectile dysfunction Family History Family History Maternal Grandfather Diabetes Mother Cancer Brother Bladder cancer Breast CA Sister No problems noted. Surgical History Surgical History H/O shoulder surgery Social History Social History Alcohol intake: never Patient Tobacco Use Status: Current someday Tobacco user Substance Use Type: Marijuana Advance Directives: No Advance Directives Information Provided: Yes Meds Allergies Allergy/AdvReac Type Severity Reaction Status Date / Time No Known Allergies Allergy Verified 01/25/24 13:01 Home Medications Medication Instructions Recorded Confirmed Last Taken Type lisinopril 10 mg tablet 10 mg PO DAILY 08/30/21 01/25/24 Unknown History albuterol sulfate 90 mcg/actuation inhalation 07/20/22 01/25/24 Unknown History aerosol inhaler (Ventolin HFA) clotrimazole 1 % topical solution topical 07/20/22 01/25/24 Unknown History fluticasone fur. 100 mcg-umeclid inhalation 07/20/22 01/25/24 Unknown History 62.5 mcg-vilant 25 mcg inhalat.powder (Trelegy Ellipta) omeprazole 40 mg capsule,delayed mg PO 07/20/22 01/25/24 Unknown History release atorvastatin 40 mg tablet mg PO 12/15/22 01/25/24 Unknown History cetirizine 10 mg tablet 10 mg PO DAILY 07/04/23 01/25/24 Unknown History lisinopril 20 mg tablet mg PO 10/23/23 01/25/24 Unknown History Assessment and Plan Assessment Anesthesia Assessment: Chart Reviewed Documented by User: Yang Molina MD 02/02/24 08:32 REPLACED BY [facility] Past Medical History Medical History (Updated 02/01/24 @ 16:03 by CEDRICK Us) Chronic pain syndrome Spondylosis of lumbar region without myelopathy or radiculopathy Spondylosis, cervical Degenerative disc disease, lumbar Degenerative disc disease, cervical Depression Essential hypertension Chronic radicular cervical pain Allergic rhinitis Anxiety COPD (chronic obstructive pulmonary disease) Insomnia Hyperlipidemia Erectile dysfunction Family History Family History Maternal Grandfather Diabetes Mother Cancer Brother Bladder cancer Breast CA Sister No problems noted. Family history of problems with anesthesia: No Surgical History Surgical History H/O shoulder surgery History of Problems with Anesthesia: No Social History Social History Alcohol intake: never Patient Tobacco Use Status: Current someday Tobacco user Substance Use Type: Marijuana Advance Directives: No Advance Directives Information Provided: Yes Meds Allergies Allergy/AdvReac Type Severity Reaction Status Date / Time No Known Allergies Allergy Verified 01/25/24 13:01 Home Medications Medication Instructions Recorded Confirmed Last Taken Type lisinopril 10 mg tablet 10 mg PO DAILY 08/30/21 01/25/24 Unknown History albuterol sulfate 90 mcg/actuation inhalation 07/20/22 01/25/24 Unknown History aerosol inhaler (Ventolin HFA) clotrimazole 1 % topical solution topical 07/20/22 01/25/24 Unknown History fluticasone fur. 100 mcg-umeclid inhalation 07/20/22 01/25/24 Unknown History 62.5 mcg-vilant 25 mcg inhalat.powder (Trelegy Ellipta) omeprazole 40 mg capsule,delayed mg PO 07/20/22 01/25/24 Unknown History release atorvastatin 40 mg tablet mg PO 12/15/22 01/25/24 Unknown History cetirizine 10 mg tablet 10 mg PO DAILY 07/04/23 01/25/24 Unknown History lisinopril 20 mg tablet mg PO 10/23/23 01/25/24 Unknown History Exam Airway Mallampati Class: II TM Dist: <=3cm Neck ROM: Full Loose/Missing/Broken Teeth: No Heart: rrr Lungs: cta b/l Assessment and Plan Final Anesthetic Review Family History of Problems with Anesthesia: No History of Problems with Anesthesia: No NPO: Yes ASA Class: II and III Final Preanesthetic Review: No Changes in Pt Med Stat, Meds/Allgs Chart Reviewed, Consent Obtained/Reviewed and Anes Risks/Benef Reviewed Patient Risk: Intermediate Procedure Risk: Intermediate Anesthetic Plan Anesthetic Plan: MAC: Disposition: Standard PACU
--- NOTE | ~2024-02-02 | FL_ITS ---
EXAMINATION: XR FLUOROSCOPY WITH IMAGES CLINICAL INFORMATION: Intercostal nerve block at rib 6/7. COMPARISON: None available. TECHNIQUE: Fluoroscopy Supervised By: Dr. Moiz Morales. Fluoroscopy Time: 28.35. Cumulative Dose: 3.2577 mGy. DAP: 0.8547 Gycm2. Images: 4. FINDINGS: Please see Dr. Morales's procedure note for details. A needle is noted at various locations with contrast injection. Side is not labeled FL/FL guidance in OR IMPRESSION: Fluoroscopy and spot films provided during intercostal nerve block.
[2024-02-02 08:25] VITALS: BMI 28.7
[2024-02-02 08:35] VITALS: BP 127/70; PULSE 73; RESP 16; TEMP 36; O2SAT 97
--- NOTE | 2024-02-02 09:14 | MHC.SHP ---
Pre-Procedural Eval Section A - 24 Hr Update-Section A only Date of Service: 02/02/24 The patient is an INPATIENT: No Changes since office visit: Yes Patient answered all questions The patient has been examined within 24 hours of the surgical procedure. The History & Physical has been completed within 30 days and I have reviewed it.: No Section B - Complete if H&P > 30 days Chief Complaint: Intercostal neuropathy Details of Present Illness: as above Relevant Family History (Specify if Yes): No Relevant Social History: None Present Medications: see Short Stay Collaborative assessment Medical History: No relevant PMH History of Previous Operations: No relevant previous surgery Allergies: Allergies Allergy/AdvReac Type Severity Reaction Status Date / Time No Known Allergies Allergy Verified 01/25/24 13:01 Review of Systems Sugical H&P ROS: Negative: Constitution, Cardiovascular, Respiratory, Neurological, Psychiatric, Hem-Onc, Allergic/Immunologic, Gastrointestinal, Genitourinary, Musculoskeletal, Integumentary, Endocrine and Eyes/Ears/Nose/Throat Exam Surgical H&P Exam: Normal: HEENT, Normal: Heart, Normal: Lungs, Normal: Extremities, Normal: Abdomen, Normal: Skin and Normal: Neurological Plan Diagnosis/Plan: Unchanged I have reviewed the history and physical and performed a pertinent physical examination on my patient. No changes have occurred unless specified. Time Spent With Patient Time: Total time managing care of this patient today ____ minutes.
[2024-02-02 10:10] VITALS: BP 122/69; PULSE 66; RESP 16; TEMP 36.4; O2SAT 99
--- NOTE | 2024-02-02 10:10 | P.BOP_ITS ---
Brief Operative Note Date of Service: 02/02/24 Pre-op diagnosis: Intercostal neuralgia Post-op diagnosis: same Procedure: Rib 12, rib 11, rib 10 and rib 9 intercostal nerve block Surgeon: Moiz Morales MD Anesthesia: MAC Was an Piper Installer used for this Procedure?: No Estimated blood loss (mL): 0 Condition: stable Disposition: PACU
--- NOTE | 2024-02-02 10:11 | P.OP_ITS ---
Operative Note Operative Note Date of Service: 02/02/24 Narrative: Intercostal nerve block rib 9, rib 10, rib 11 and 12 on the right. Dinh is very pleasant 68 years old gentleman who is suffering from intercostal neuralgia for past few weeks. He came today to the operating room for performance of right intercostal rib 12, rib 11, rib 10 and rib 9 intercostal nerve blocks. I the patient reports pain in entire right side chest. I explained to him that I can not inject all the ribs of his right chest and we decided that I will inject for most painful sides. Before the surgery I palpated the patient's chest and determined that the most lowest ribs in his right chest are most painful on palpation. After that the patient was taken to the operating room and he was positioned prone rapidly table. [place] [employer] monitors were applied and patient was moderately sedated. Time-out was performed delineating side inside of the procedure namely that of of the patient need for antibiotics and risk of fire. The right posterior chest and the back were prepped with ChloraPrep and draped with self adhesive utility towels. C-arm was brought over the operating field and picture of 11/06/2010 and 9th ribs were sequentially demonstrated on the screen. Projection of the lower margin of the each rib was chosen as target of the injection. Each time 22 gauge 3-1/2 inch needle was inserted extra anatomically below the level of the lower margin of the rib and advanced to the lower portion of the rib until the tip of the needle gently contacted the bone. After that the needle deviated slightly lateral and then medial again to advance the tip of the needle into the intercostal sulcus. Contrast was injected and the did not demonstrate any intrapleural or any intravascular spread of the contrast. After that small amount of ropivacaine 0.5% mixed with Kenalog 2.5 cc was injected into each rib location. Two the dose of Kenalog was 80 mg. Upon completion of the injections the needle was withdrawn and sterile dressing was applied. The patient tolerated the procedure well. He was awakened and taken outside of the operating room to recovery room where he recovered uneventfully.
[2024-02-02 10:25] VITALS: BP 122/69; PULSE 57; RESP 16; TEMP 36.3; O2SAT 99
--- NOTE | 2024-02-02 10:27 | MHC.SHP ---
Pre-Procedural Eval Section A - 24 Hr Update-Section A only Date of Service: 02/02/24 The patient is an INPATIENT: No Changes since office visit: Yes Patient answered all questions The patient has been examined within 24 hours of the surgical procedure. The History & Physical has been completed within 30 days and I have reviewed it.: No Section B - Complete if H&P > 30 days Chief Complaint: Intercostal neuropathy Details of Present Illness: As above Relevant Family History (Specify if Yes): No Relevant Social History: None Present Medications: None Medical History: No relevant PMH History of Previous Operations: No relevant previous surgery Allergies: Allergies Allergy/AdvReac Type Severity Reaction Status Date / Time No Known Allergies Allergy Verified 01/25/24 13:01 Review of Systems Sugical H&P ROS: Negative: Constitution, Cardiovascular, Respiratory, Neurological, Psychiatric, Hem-Onc, Allergic/Immunologic, Gastrointestinal, Genitourinary, Musculoskeletal, Integumentary, Endocrine and Eyes/Ears/Nose/Throat Exam Surgical H&P Exam: Normal: HEENT, Normal: Heart, Normal: Lungs, Normal: Extremities, Normal: Abdomen, Normal: Skin and Normal: Neurological Exam Comment: Tenderness on palpation in the projection of 9th, 10th, 11th, and 12th ribs. Plan I have reviewed the history and physical and performed a pertinent physical examination on my patient. The procedure will be performed as intercostal injection at 12th, 11th, 10th, and 9 rib. Time Spent With Patient Time: Total time managing care of this patient today ____ minutes.
== END 2024-02-02 10:50 | disposition home or self-care (01) ==
PROVIDERS: PCP Internal Medicine; Visit Provider Anesthesiology
PROC: (CPT 64420; principal; 2024-02-02 09:20)
DX: G58.0 Intercostal neuropathy (principal); G89.4 Chronic pain syndrome; I10 Essential (primary) hypertension; J44.9 Chronic obstructive pulmonary disease, unspecified; E78.5 Hyperlipidemia, unspecified; F17.210 Nicotine dependence, cigarettes, uncomplicated; Z79.51 Long term (current) use of inhaled steroids; Z79.899 Other long term (current) drug therapy
CPT/HCPCS: 64420; 64421 ×3; J2704; J2795; J3301; Q9967

== ENCOUNTER → 2024-02-02 07:47 | Outpatient (BNV) | payer MEDICARE, MEDICAID, SELFPAY | PROVIDERS: PCP Internal Medicine; Visit Provider Anesthesiology | DX: G58.0 Intercostal neuropathy (principal) | CPT/HCPCS: 64420; 64421; 77002 ==

== ENCOUNTER → 2024-02-07 10:47 | Outpatient (REF) | payer MEDICARE, MEDICAID, SELFPAY | LOC: HO.SL 10:47 | PROVIDERS: PCP Internal Medicine; Visit Provider Nurse Practitioner Family | DX: G47.9 Sleep disorder, unspecified (principal); G47.00 Insomnia, unspecified; G47.10 Hypersomnia, unspecified; R06.83 Snoring; R53.83 Other fatigue | CPT/HCPCS: 95806 ==

== ENCOUNTER → 2024-02-07 10:57 | Outpatient (BNV) | payer MEDICARE, MEDICAID, SELFPAY | PROVIDERS: PCP Internal Medicine; Visit Provider Psychiatry & Neurology Neurology | DX: R06.83 Snoring (principal) | CPT/HCPCS: 95806 ==

== ENCOUNTER 2024-02-08 11:33 | Outpatient (AMB) | payer OTHER, MEDICARE, MEDICAID, SELFPAY ==
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
[2024-02-08 11:52] VITALS: BP 138/90; PULSE 80; RESP 16; O2SAT 94; BMI 28.7
== END 2024-02-08 12:08 | disposition home or self-care (01) ==
PROVIDERS: PCP Internal Medicine; Visit Provider Anesthesiology
DX: G89.4 Chronic pain syndrome (principal); M50.30 Other cervical disc degeneration, unspecified cervical region; M51.36 Other intervertebral disc degeneration, lumbar region; Z79.891 Long term (current) use of opiate analgesic; M54.16 Radiculopathy, lumbar region; M47.816 Spondylosis without myelopathy or radiculopathy, lumbar region; R07.9 Chest pain, unspecified; G47.00 Insomnia, unspecified; G58.8 Other specified mononeuropathies
CPT/HCPCS: 99215

== ENCOUNTER → 2024-02-08 11:33 | Outpatient (BNVA) | payer OTHER, MEDICARE, MEDICAID, SELFPAY | PROVIDERS: PCP Internal Medicine; Visit Provider Anesthesiology | DX: G89.4 Chronic pain syndrome (principal); M50.30 Other cervical disc degeneration, unspecified cervical region; M51.36 Other intervertebral disc degeneration, lumbar region; M47.26 Other spondylosis with radiculopathy, lumbar region; R07.9 Chest pain, unspecified; G47.00 Insomnia, unspecified; G58.8 Other specified mononeuropathies; Z79.891 Long term (current) use of opiate analgesic | CPT/HCPCS: 99212 ==

== ENCOUNTER 2024-03-07 10:47 | Outpatient (AMB) | payer OTHER, MEDICARE, MEDICAID, SELFPAY ==
--- NOTE | 2024-03-07 10:50 | A.OFFVIS_ITS ---
Intake Vital Signs 03/07/24 10:58 Height 5 ft 4 in Weight 165 lb BMI 28.3 BP 122/70 Blood Pressure Location Lt brachial Position Sitting Respiration 14 Pulse 79 Pulse Source Pulse Oximeter Pulse Oximetry (%) 94 Oxygen Delivery Method Room Air Intake Visit Reasons: PILL COUNT Intake Note: Patient comes in for pill count. Reports pain 7/10. Allergies No Known Allergies Allergy (Verified 03/07/24 10:57) HPI HPI Comments History of Present Illness Details Dinh is in my office for the pill count and follow-up. He reports some improvement of pain 7/10. He reports that 5 pills of the medication helps him better than previous 4. I warned him that I am not very happy with escalation in yet I do not see any other way to help him at this time. SCS possibility and I T DD were briefly mentioned to the patient. right-sided rib 12 rib 11 and rib 10 therapeutic intercostal nerve block helped his pain to the extent when he is able to function. Pill count today he supposed to have 65 pills in his possession he presented with 63 pills. The pill count therefore is correct however he is 2 pills short. I gave him a warning about bringing us less pills that he actually is prescribed to. He has prescription of naltrexone. He is also on Lyrica and I will continue this prescription. In the past Nevro SCS was offered to him, he has not very eager to go for this procedure. He went for transforaminal epidural steroid injection L4-5 bilateral on 12/05/2023. He reports at least 50% of pain improvement, he reports that his pain level today 7.5/10 however he reports that this is because of the weather changes and the pain relieve is much more profound as a result of the injection. We can continue to repeat those procedures. I will prescribe again him his opioid medications they are due on 12/24/2023. PRIOR: diagnostic bilateral L3- L4- L5 MBB performed on 05/16/23. He reports no pain improvement whatsoever. pain after the procedure remained in the range 8/10 to 9.5/10. SCS nevro trial was discussed with the patient. He reports that his son has computer at home and will be able to help him with the psychological evaluation. After that we will schedule him for a trial. ?He has severe lumbar stenosis.? I recommended him to go back to a neurosurgeon to discuss his spinal stenosis.? However patient adamantly refused to go for consultation with a neurosurgeon.? 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 At multiple intervertebral interval he has ligamentum flavum hypertrophy which could be addressed with MILD procedure. complains on severe pain in neck and severe pain in the back.? He reports pain in the neck radiates into the right upper extremity and pain in the back is not radiating.? He relates his pain to the injuries he sustained while in accident on 09/05. he fell from garbage truck an fell on his back.? About 2 years ago he was on oxycodone about 120 mg a day and the he was more active and able to walk better.? He reports that he had multiple chiropractic manipulations and physical therapy in the past to alleviate his pain and those were not effective, he has home traction unit but it does not alleviate his pain. He takes Lyrica meloxicam Cymbalta phentermine and amitriptyline to help him to sleep at night. He never had surgery on his back although on MRI from 2010 he had severe foraminal stenosis at C4-C5 level and mild central cord compression.? He refuses surgery.? He told me that the surgeries something he would never except for himself.? He received 1 injection of unknown kind in his lumbar spine but never in injection in his cervical spine. [facility] Medical History (Updated 02/02/24 @ 18:49 by CEDRICK Us) Chronic pain syndrome Spondylosis of lumbar region without myelopathy or radiculopathy Spondylosis, cervical Degenerative disc disease, lumbar Degenerative disc disease, cervical Depression Essential hypertension Chronic radicular cervical pain Allergic rhinitis Anxiety COPD (chronic obstructive pulmonary disease) Insomnia Hyperlipidemia Erectile dysfunction Surgical History H/O shoulder surgery Family History Maternal Grandfather Diabetes Mother Cancer Brother Bladder cancer Breast CA Sister No problems noted. Social History Alcohol intake: never Patient Tobacco Use Status: Current everyday Tobacco user Tobacco use type: Cigarette Cigarettes Per Day: 5 Second Hand Smoke Exposure: No Substance Use Type: Marijuana Review of Systems Const All systems reviewed & are unremarkable except as noted in HPI and below Physical Exam Vital Signs: Last Vital Signs Pulse 79 03/07/24 10:58 Resp 14 03/07/24 10:58 BP 122/70 03/07/24 10:58 Pulse Ox 94 03/07/24 10:58 Oxygen Delivery Method Room Air 03/07/24 10:58 BMI result Body Mass Index 28.3 Const General: in distress severe; No comfortable Chest Other: Tenderness on palpation on the right side of the chest remains although little bit better than last time. Most severe tenderness now again as approximately rib 10 rib 11 area presumably. Resp Effort & Inspection: normal respiratory effort and able to speak in complete sentences Cardio Jugular venous distension: no JVD Back/Spine/Pelvis Other: Loading test is positive bilaterally, tenderness of palpation on paraspinal spinal region lumbar spine Cervical Spine: No cervical ROM normal Thoracic/Lumbar Spine: thoracic and lumbar spine normal to inspection, pain with thoraco-lumbar ROM and thoraco-lumbar ROM limited Psych Appearance: grossly normal Mental Status: mental status grossly normal Speech and movement: Normal speech and movement present Affect: normal affect Attitude: cooperative Thought process: Normal thought process present Thought content: Normal thought content present Insight: Good insight present (Psych) Judgement: Good judgement present (Psych) Assessment & Plan Assessment & Plan (1) Degenerative disc disease, cervical: Code(s): M50.30 - Other cervical disc degeneration, unspecified cervical region (2) Degenerative disc disease, lumbar: Code(s): M51.36 - Other intervertebral disc degeneration, lumbar region (3) Chronic pain syndrome: Code(s): G89.4 - Chronic pain syndrome (4) Opiate analgesic contract exists: Code(s): Z79.891 - snf (current) use of opiate analgesic (5) Lumbar radiculopathy: Code(s): M54.16 - Radiculopathy, lumbar region (6) Lumbar spondylosis: Code(s): M47.816 - Spondylosis without myelopathy or radiculopathy, lumbar region (7) Right-sided chest pain: Code(s): R07.9 - Chest pain, unspecified (8) Insomnia: Code(s): G47.00 - Insomnia, unspecified (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 There is no evidence of misuse, abuse or diversion at this time. Glennt reviewed. Moderate results of intercostal nerve block however it was short-lived. Now he is taking aking his medications 5 times a day oxycodone 10 mg. I need to send prescription due on 04/19/2024. He will continue his pregabalin 300 mg he reports that this medication takes the edge off of his pain. PCPs prescribing him Ambien. Therefore his risk of opioid overdose/respiratory depression is elevated. I prescribed him Narcan intranasal for overdose event on 02/11/2024. He is aware of the Narcan medication usage, he expressed understanding and he will inform his relatives about the Narcan application and action. He is negative again about neuromodulation. He does not like the idea of having battery implanted. Briefly SCS battery less device was explained to him but I told him that in my opinion this is not effective device for him. Medications: Refilled oxycodone Partial Fill upon patient request. 10 mg PO Q4-6H 30 days PRN 150 tabs 0RF pain MDD Five pills a day G89.4 - Chronic pain syndrome, M50.30 - Other cervical disc degeneration, unspecified cervical region, M51.36 - Other intervertebral disc degeneration, lumbar region, Z79.891 - snf (current) use of opiate analgesic pregabalin 300 mg PO BID 30 days 60 caps 5RF Coding Level of Care Code Est Pt Level 3 (20701) Diagnoses Degenerative disc disease, cervical M50.30 Degenerative disc disease, lumbar M51.36 Chronic pain syndrome G89.4 Opiate analgesic contract exists Z79.891 Lumbar radiculopathy M54.16 Lumbar spondylosis M47.816 Right-sided chest pain R07.9 Insomnia G47.00 Intercostal neuralgia G58.8
[2024-03-07 10:58] VITALS: BP 122/70; PULSE 79; RESP 14; O2SAT 94; BMI 28.3
== END 2024-03-07 11:05 | disposition home or self-care (01) ==
PROVIDERS: PCP Internal Medicine; Visit Provider Anesthesiology
DX: G89.4 Chronic pain syndrome (principal); M51.36 Other intervertebral disc degeneration, lumbar region; M50.30 Other cervical disc degeneration, unspecified cervical region; Z79.891 Long term (current) use of opiate analgesic; M54.16 Radiculopathy, lumbar region; M47.816 Spondylosis without myelopathy or radiculopathy, lumbar region; R07.9 Chest pain, unspecified; G47.00 Insomnia, unspecified; G58.8 Other specified mononeuropathies
CPT/HCPCS: 99213

== ENCOUNTER → 2024-03-07 10:47 | Outpatient (BNVA) | payer OTHER, MEDICARE, MEDICAID, SELFPAY | PROVIDERS: PCP Internal Medicine; Visit Provider Anesthesiology | DX: M50.30 Other cervical disc degeneration, unspecified cervical region (principal); M51.36 Other intervertebral disc degeneration, lumbar region; M47.26 Other spondylosis with radiculopathy, lumbar region; G89.4 Chronic pain syndrome; R07.9 Chest pain, unspecified; G47.00 Insomnia, unspecified; G58.8 Other specified mononeuropathies; Z79.891 Long term (current) use of opiate analgesic | CPT/HCPCS: 99212 ==

== ENCOUNTER 2024-04-04 10:40 | Outpatient (AMB) | payer OTHER, MEDICARE, MEDICAID, SELFPAY ==
--- NOTE | 2024-04-04 10:47 | MHC.OFFVIS ---
Vital Signs 04/04/24 11:01 Height 5 ft 4 in Weight 163 lb 2 oz BMI 28.0 BP 118/68 Blood Pressure Location Lt brachial Position Sitting Respiration 16 Pulse 63 Pulse Source Pulse Oximeter Pulse Oximetry (%) 96 Oxygen Delivery Method Room Air Intake Visit Reasons: PILL COUNT Intake Note: Patient comes in for pill count. Reports pain 8/10. Allergies No Known Allergies Allergy (Verified 04/04/24 11:01) HPI Comments Details: Dinh is in my office for the pill count and follow-up. He reports pain today 7/10 he reports that he is stable. He does not complain on the thoracic pain anymore. He presents here for the pill count. His supposed to have 80 pills in his possession. He presented with 85 pills. This demonstrates responsible attitude for the patient's opioid medications. The patient is taking Belsomra 5 mg q.h.s.. He was warned about the side effects of Belsomra in combination with elevated doses of the opioids. He reports that he has the Narcan preparation at home. He reports that his son who lives with him knows how to use Narcan. Nevertheless the Narcan use and side effects of opioid medications were reiterated to the patient. Patient understood and agreed to convey this information to his son. In the past Nevro SCS was offered to him, he has not very eager to go for this procedure. He went for transforaminal epidural steroid injection L4-5 bilateral on 12/05/2023. He reports at least 50% of pain improvement, he reports that his pain level today 7.5/10 however he reports that this is because of the weather changes and the pain relieve is much more profound as a result of the injection. We can continue to repeat those procedures. I will prescribe again him his opioid medications they are due on 12/24/2023. PRIOR: diagnostic bilateral L3- L4- L5 MBB performed on 05/16/23. He reports no pain improvement whatsoever. pain after the procedure remained in the range 8/10 to 9.5/10. SCS nevro trial was discussed with the patient. He reports that his son has computer at home and will be able to help him with the psychological evaluation. After that we will schedule him for a trial. ?He has severe lumbar stenosis.? I recommended him to go back to a neurosurgeon to discuss his spinal stenosis.? However patient adamantly refused to go for consultation with a neurosurgeon.? 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 At multiple intervertebral interval he has ligamentum flavum hypertrophy which could be addressed with MILD procedure. complains on severe pain in neck and severe pain in the back.? He reports pain in the neck radiates into the right upper extremity and pain in the back is not radiating.? He relates his pain to the injuries he sustained while in accident on 09/05. he fell from garbage truck an fell on his back.? About 2 years ago he was on oxycodone about 120 mg a day and the he was more active and able to walk better.? He reports that he had multiple chiropractic manipulations and physical therapy in the past to alleviate his pain and those were not effective, he has home traction unit but it does not alleviate his pain. He takes Lyrica meloxicam Cymbalta phentermine and amitriptyline to help him to sleep at night. He never had surgery on his back although on MRI from 2010 he had severe foraminal stenosis at C4-C5 level and mild central cord compression.? He refuses surgery.? He told me that the surgeries something he would never except for himself.? He received 1 injection of unknown kind in his lumbar spine but never in injection in his cervical spine. [facility] Medical History (Updated 02/02/24 @ 18:49 by CEDRICK Us) Chronic pain syndrome Spondylosis of lumbar region without myelopathy or radiculopathy Spondylosis, cervical Degenerative disc disease, lumbar Degenerative disc disease, cervical Depression Essential hypertension Chronic radicular cervical pain Allergic rhinitis Anxiety COPD (chronic obstructive pulmonary disease) Insomnia Hyperlipidemia Erectile dysfunction Surgical History H/O shoulder surgery Family History Maternal Grandfather Diabetes Mother Cancer Brother Bladder cancer Breast CA Sister No problems noted. Social History Alcohol intake: never Patient Tobacco Use Status: Current everyday Tobacco user Tobacco use type: Cigarette Cigarettes Per Day: 5 Second Hand Smoke Exposure: No Substance Use Type: Marijuana Review of Systems Const All systems reviewed & are unremarkable except as noted in HPI and below Physical Exam Vital Signs: Last Vital Signs Pulse 63 04/04/24 11:01 Resp 16 04/04/24 11:01 BP 118/68 04/04/24 11:01 Pulse Ox 96 04/04/24 11:01 Oxygen Delivery Method Room Air 04/04/24 11:01 BMI result Body Mass Index 28.0 Const General: in distress severe; No comfortable Resp Effort & Inspection: normal respiratory effort and able to speak in complete sentences Cardio Jugular venous distension: no JVD Back/Spine/Pelvis Other: Loading test is positive bilaterally, tenderness of palpation on paraspinal spinal region lumbar spine Cervical Spine: No cervical ROM normal Thoracic/Lumbar Spine: thoracic and lumbar spine normal to inspection, pain with thoraco-lumbar ROM and thoraco-lumbar ROM limited Psych Appearance: grossly normal Mental Status: mental status grossly normal Speech and movement: Normal speech and movement present Affect: normal affect Attitude: cooperative Thought process: Normal thought process present Thought content: Normal thought content present Insight: Good insight present (Psych) Judgement: Good judgement present (Psych) Results Reviewed Results Reviewed: MRI lumbar spine 07/04/2021. Vertebral body height is maintained. There is a straightening of the normal lumbar lordosis. There is 4 mm of anterolisthesis of L4 on L5 and trace retrolisthesis of L5 on S1. There is very slight levoscoliotic curvature. Bone marrow signal intensity is within normal limits. 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 There is disc desiccation throughout lumbar spine. Conus medullaris terminates at the level of L1. Cauda equina is unremarkable. Levels: T12-L1: Disc degeneration and loss in height. Mild facet arthrosis. No central canal stenosis or neural foraminal narrowing. L1-L2: Disc desiccation and diffuse annular bulge with prominence within the neural foraminal bilaterally. There is moderate central canal stenosis severe left and moderate right neural foraminal narrowing. Posterior a medial displacement of traversing nerve roots in the right lateral recess is suspected. Correlation with radiculopathy is recommended. L2-L3: Diffuse annular bulge. Facet arthrosis. Ligamentous laxity contributing to moderate central canal stenosis, lateral recess stenosis, moderate left and mild right neural foraminal narrowing. L3-L4: Disc desiccation: Loss of heights. Diffuse annular bulge. Bilateral ligamentous laxity causing moderate central canal stenosis, lateral recess stenosis, moderate right and left neural foraminal narrowing. L4-5: Disc desiccation and diffuse annular bulge. Facet arthrosis and ligament of laxity with severe central canal stenosis. Lateral recess stenosis, and moderate bilateral neural foraminal narrowing. Abutment of the exiting L4 nerve roots in the far lateral compartment is not complete excluded. L5-S1: Disc desiccation loss of height. Uncovering the posterior intervertebral disc space. Disc osteophyte complex causing effacement of the anterior thecal space. Lateral recess stenosis and moderate lateral neural foraminal narrowing. The vascular soft tissues unremarkable. Assessment & Plan Assessment & Plan (1) Degenerative disc disease, cervical: Code(s): M50.30 - Other cervical disc degeneration, unspecified cervical region Category: Medical (2) Degenerative disc disease, lumbar: Code(s): M51.36 - Other intervertebral disc degeneration, lumbar region Category: Medical (3) Chronic pain syndrome: Code(s): G89.4 - Chronic pain syndrome Category: Medical (4) Opiate analgesic contract exists: Code(s): Z79.891 - FDC (current) use of opiate analgesic Category: Medical (5) Lumbar radiculopathy: Code(s): M54.16 - Radiculopathy, lumbar region Category: Medical (6) Lumbar spondylosis: Code(s): M47.816 - Spondylosis without myelopathy or radiculopathy, lumbar region Category: Medical (7) Right-sided chest pain: Code(s): R07.9 - Chest pain, unspecified Category: Medical (8) Insomnia: Code(s): G47.00 - Insomnia, unspecified Category: Medical (9) Intercostal neuralgia: Code(s): G58.8 - Other specified mononeuropathies Category: Medical Plan Dinh has shown accountability for his medication regimen and the pill count was accurate. There is no evidence of misuse, abuse or diversion at this time. MassPat reviewed. Moderate results of intercostal nerve block however it was short-lived. Now he is taking aking his medications 5 times a day oxycodone 10 mg. He is also taking pregabalin and he takes Belsomra. He has Narcan at home. The discussion see as above. Patient expressed understanding about combination of the pregabalin oxycodone and Belsomra. I will see this patient for the pill count and follow-up in 1 month. Medications: Refilled oxycodone Partial Fill upon patient request. 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 Coding Level of Care Code Est Pt Level 4 (08170) Diagnoses Degenerative disc disease, cervical M50.30 Degenerative disc disease, lumbar M51.36 Chronic pain syndrome G89.4 Opiate analgesic contract exists Z79.891 Lumbar radiculopathy M54.16 Lumbar spondylosis M47.816 Right-sided chest pain R07.9 Insomnia G47.00 Intercostal neuralgia G58.8
[2024-04-04 11:01] VITALS: BP 118/68; PULSE 63; RESP 16; O2SAT 96; BMI 28.0
== END 2024-04-04 11:19 | disposition home or self-care (01) ==
PROVIDERS: PCP Internal Medicine; Visit Provider Anesthesiology
DX: M50.30 Other cervical disc degeneration, unspecified cervical region (principal); M51.36 Other intervertebral disc degeneration, lumbar region; G89.4 Chronic pain syndrome; Z79.891 Long term (current) use of opiate analgesic; M47.26 Other spondylosis with radiculopathy, lumbar region; R07.9 Chest pain, unspecified; G47.00 Insomnia, unspecified; G58.8 Other specified mononeuropathies
CPT/HCPCS: 99214

== ENCOUNTER → 2024-04-04 10:40 | Outpatient (BNVA) | payer OTHER, MEDICARE, MEDICAID, SELFPAY | PROVIDERS: PCP Internal Medicine; Visit Provider Anesthesiology | DX: M50.30 Other cervical disc degeneration, unspecified cervical region (principal); M51.36 Other intervertebral disc degeneration, lumbar region; M47.26 Other spondylosis with radiculopathy, lumbar region; G89.4 Chronic pain syndrome; R07.9 Chest pain, unspecified; G47.00 Insomnia, unspecified; G58.8 Other specified mononeuropathies; Z79.891 Long term (current) use of opiate analgesic | CPT/HCPCS: 99212 ==

== ENCOUNTER 2024-05-02 10:51 | Outpatient (AMB) | payer OTHER, MEDICARE, MEDICAID, SELFPAY ==
--- NOTE | 2024-05-02 10:53 | A.OFFVIS_ITS ---
Vital Signs 05/02/24 11:12 Height 5 ft 4 in Weight 171 lb 6 oz BMI 29.4 BP 120/64 Blood Pressure Location Lt brachial Position Sitting Respiration 12 Pulse 56 Pulse Source Pulse Oximeter Pulse Oximetry (%) 97 Oxygen Delivery Method Room Air Intake Visit Reasons: PILL COUNT Intake Note: Patient comes in for pill count. Reports pain 7/10. Allergies No Known Allergies Allergy (Verified 05/02/24 11:11) HPI Comments Details: Dinh is back in my office for the pill count. He presented today with 91 pills in his possession. His supposed to have 90 pills in his possession. He reports no side effects and no complications of the opioid medications. He reports that medication allows him to be more or less active and perform better activities of daily living. No complains on chest pain today complained on pain in the back of the head. Occipital nerve block greater and lesser was offered to the patient. Patient will be considering this procedure, he says that now this pain is mild. If his pain will be more severe in the back of the head I can offer him therapeutic occipital nerve block. PRIOR: diagnostic bilateral L3- L4- L5 MBB performed on 05/16/23. He reports no pain improvement whatsoever. pain after the procedure remained in the range 8/10 to 9.5/10. SCS nevro trial was discussed with the patient. He reports that his son has computer at home and will be able to help him with the psychological evaluation. After that we will schedule him for a trial. ?He has severe lumbar stenosis.? I recommended him to go back to a neurosurgeon to discuss his spinal stenosis.? However patient adamantly refused to go for consultation with a neurosurgeon.? 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 At multiple intervertebral interval he has ligamentum flavum hypertrophy which could be addressed with MILD procedure. complains on severe pain in neck and severe pain in the back.? He reports pain in the neck radiates into the right upper extremity and pain in the back is not radiating.? He relates his pain to the injuries he sustained while in accident on 09/05. he fell from garbage truck an fell on his back.? About 2 years ago he was on oxycodone about 120 mg a day and the he was more active and able to walk better.? He reports that he had multiple chiropractic manipulations and physical therapy in the past to alleviate his pain and those were not effective, he has home traction unit but it does not alleviate his pain. He takes Lyrica meloxicam Cymbalta phentermine and amitriptyline to help him to sleep at night. He never had surgery on his back although on MRI from 2010 he had severe foraminal stenosis at C4-C5 level and mild central cord compression.? He refuses surgery.? He told me that the surgeries something he would never except for himself.? He received 1 injection of unknown kind in his lumbar spine but never in injection in his cervical spine. [facility] Medical History (Updated 02/02/24 @ 18:49 by CEDRICK Us) Chronic pain syndrome Spondylosis of lumbar region without myelopathy or radiculopathy Spondylosis, cervical Degenerative disc disease, lumbar Degenerative disc disease, cervical Depression Essential hypertension Chronic radicular cervical pain Allergic rhinitis Anxiety COPD (chronic obstructive pulmonary disease) Insomnia Hyperlipidemia Erectile dysfunction Surgical History H/O shoulder surgery Family History Maternal Grandfather Diabetes Mother Cancer Brother Bladder cancer Breast CA Sister No problems noted. Social History Alcohol intake: never Patient Tobacco Use Status: Current everyday Tobacco user Tobacco use type: Cigarette Cigarettes Per Day: 5 Second Hand Smoke Exposure: No Substance Use Type: Marijuana Review of Systems Const All systems reviewed & are unremarkable except as noted in HPI and below Physical Exam Const General: in distress severe; No comfortable Resp Effort & Inspection: normal respiratory effort and able to speak in complete sentences Cardio Jugular venous distension: no JVD Back/Spine/Pelvis Other: Loading test is positive bilaterally, tenderness of palpation on paraspinal spinal region lumbar spine Cervical Spine: No cervical ROM normal Thoracic/Lumbar Spine: thoracic and lumbar spine normal to inspection, pain with thoraco-lumbar ROM and thoraco-lumbar ROM limited Psych Appearance: grossly normal Mental Status: mental status grossly normal Speech and movement: Normal speech and movement present Affect: normal affect Attitude: cooperative Thought process: Normal thought process present Thought content: Normal thought content present Insight: Good insight present (Psych) Judgement: Good judgement present (Psych) Assessment & Plan Assessment & Plan (1) Degenerative disc disease, cervical: Code(s): M50.30 - Other cervical disc degeneration, unspecified cervical region Category: Medical (2) Degenerative disc disease, lumbar: Code(s): M51.36 - Other intervertebral disc degeneration, lumbar region Category: Medical (3) Chronic pain syndrome: Code(s): G89.4 - Chronic pain syndrome Category: Medical (4) Opiate analgesic contract exists: Code(s): 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 There is no evidence of misuse, abuse or diversion at this time. MassPat reviewed. Does not complain on pain in the chest. Complains on pain in the projection of the occipital bone. Occipital nerve block was offered. The patient will think about it. Now he is taking his medications 5 times a day oxycodone 10 mg. He is also taking pregabalin and he takes Belsomra. He has Narcan at home. Patient expressed understanding about combination of the pregabalin oxycodone and Belsomra. The patient is due for the new prescription on 05/20/2024 this is oxycodone 10 mg 5 times a day. I will see this patient for the pill count and follow-up in 1 month. Medications: Refilled oxycodone Partial Fill upon patient request. 10 mg PO Q4-6H 30 days PRN 150 tabs 0RF pain MDD Five pills a day G89.4 - Chronic pain syndrome, M50.30 - Other cervical disc degeneration, unspecified cervical region, M51.36 - Other intervertebral disc degeneration, lumbar region, Z79.891 - intermediate (current) use of opiate analgesic Patient Instructions: I here by testify that I spent 30 minutes in conversation with this patient as well as planning his care and organizing this note. Coding Level of Care Code Est Pt Level 4 (29291) Diagnoses Degenerative disc disease, cervical M50.30 Degenerative disc disease, lumbar M51.36 Chronic pain syndrome G89.4 Opiate analgesic contract exists Z79.891 Lumbar radiculopathy M54.16 Lumbar spondylosis M47.816 Right-sided chest pain R07.9 Insomnia G47.00 Intercostal neuralgia G58.8
[2024-05-02 11:12] VITALS: BP 120/64; PULSE 56; RESP 12; O2SAT 97; BMI 29.4
== END 2024-05-02 11:17 | disposition home or self-care (01) ==
PROVIDERS: PCP Internal Medicine; Visit Provider Anesthesiology
DX: M50.30 Other cervical disc degeneration, unspecified cervical region (principal); M51.36 Other intervertebral disc degeneration, lumbar region; G89.4 Chronic pain syndrome; Z79.891 Long term (current) use of opiate analgesic; M54.16 Radiculopathy, lumbar region; M47.816 Spondylosis without myelopathy or radiculopathy, lumbar region; R07.9 Chest pain, unspecified; G47.00 Insomnia, unspecified; G58.8 Other specified mononeuropathies
CPT/HCPCS: 99214

== ENCOUNTER → 2024-05-02 10:51 | Outpatient (BNVA) | payer OTHER, MEDICARE, MEDICAID, SELFPAY | PROVIDERS: PCP Internal Medicine; Visit Provider Anesthesiology | DX: M50.30 Other cervical disc degeneration, unspecified cervical region (principal); M51.36 Other intervertebral disc degeneration, lumbar region; G89.4 Chronic pain syndrome; M54.16 Radiculopathy, lumbar region; R07.9 Chest pain, unspecified; G47.00 Insomnia, unspecified; G58.8 Other specified mononeuropathies; Z51.81 Encounter for therapeutic drug level monitoring; Z79.01 Long term (current) use of anticoagulants | CPT/HCPCS: 99212 ==

== ENCOUNTER 2024-06-03 11:22 | Outpatient (AMB) | payer OTHER, MEDICARE, MEDICAID, SELFPAY ==
--- NOTE | 2024-06-03 11:24 | MHC.OFFVIS ---
Vital Signs 06/03/24 12:05 Height 5 ft 4 in Weight 169 lb BMI 29.0 BP 110/60 Blood Pressure Location Lt brachial Position Sitting Respiration 16 Pulse 56 Pulse Source Pulse Oximeter Pulse Oximetry (%) 95 Oxygen Delivery Method Room Air Intake Visit Reasons: PILL COUNT Intake Note: Patient comes in for pill count. Reports pain 8.5/10. Allergies No Known Allergies Allergy (Verified 06/03/24 12:07) HPI Comments Details: Dinh is back in my office for the pill count. He presented today with 83 pills in his possession. His supposed to have 80 pills in his possession. This demonstrates responsible attitude to were the opioid medications. He continues to take pregabalin as well 300 mg he reports good pain relief from pregabalin. He is being prescribed by his PCP with Belsomra 15 mg he wants to request primary care physician to increase the dose of PCP to 20 mg. I discussed with him the need to watch out his breathing especially during the nighttime. He has Narcan prescribed for him as well. Last prescription was on 05/20/2024. I will renew his script on 06/19/2024. He reports no side effects and no complications of the opioid medications. He reports that medication allows him to be more or less active and perform better activities of daily living. No complains on chest pain today complained on pain in the back of the head. Occipital nerve block greater and lesser was offered to the patient. Patient will be considering this procedure, he says that now this pain is mild. If his pain will be more severe in the back of the head I can offer him therapeutic occipital nerve block. PRIOR: diagnostic bilateral L3- L4- L5 MBB performed on 05/16/23. He reports no pain improvement whatsoever. pain after the procedure remained in the range 8/10 to 9.5/10. SCS nevro trial was discussed with the patient. He reports that his son has computer at home and will be able to help him with the psychological evaluation. After that we will schedule him for a trial. ?He has severe lumbar stenosis.? I recommended him to go back to a neurosurgeon to discuss his spinal stenosis.? However patient adamantly refused to go for consultation with a neurosurgeon.? 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 At multiple intervertebral interval he has ligamentum flavum hypertrophy which could be addressed with MILD procedure. complains on severe pain in neck and severe pain in the back.? He reports pain in the neck radiates into the right upper extremity and pain in the back is not radiating.? He relates his pain to the injuries he sustained while in accident on 09/05. he fell from garbage truck an fell on his back.? About 2 years ago he was on oxycodone about 120 mg a day and the he was more active and able to walk better.? He reports that he had multiple chiropractic manipulations and physical therapy in the past to alleviate his pain and those were not effective, he has home traction unit but it does not alleviate his pain. He takes Lyrica meloxicam Cymbalta phentermine and amitriptyline to help him to sleep at night. He never had surgery on his back although on MRI from 2010 he had severe foraminal stenosis at C4-C5 level and mild central cord compression.? He refuses surgery.? He told me that the surgeries something he would never except for himself.? He received 1 injection of unknown kind in his lumbar spine but never in injection in his cervical spine. [facility] Medical History (Updated 02/02/24 @ 18:49 by CEDRICK Us) Chronic pain syndrome Spondylosis of lumbar region without myelopathy or radiculopathy Spondylosis, cervical Degenerative disc disease, lumbar Degenerative disc disease, cervical Depression Essential hypertension Chronic radicular cervical pain Allergic rhinitis Anxiety COPD (chronic obstructive pulmonary disease) Insomnia Hyperlipidemia Erectile dysfunction Surgical History H/O shoulder surgery Family History Maternal Grandfather Diabetes Mother Cancer Brother Bladder cancer Breast CA Sister No problems noted. Social History Alcohol intake: never Patient Tobacco Use Status: Current everyday Tobacco user Tobacco use type: Cigarette Cigarettes Per Day: 5 Second Hand Smoke Exposure: No Substance Use Type: Marijuana Review of Systems Const All systems reviewed & are unremarkable except as noted in HPI and below Physical Exam Vital Signs: Last Vital Signs Pulse 56 06/03/24 12:05 Resp 16 06/03/24 12:05 BP 110/60 06/03/24 12:05 Pulse Ox 95 06/03/24 12:05 Oxygen Delivery Method Room Air 06/03/24 12:05 BMI result Body Mass Index 29.0 Const General: in distress severe; No comfortable Resp Effort & Inspection: normal respiratory effort and able to speak in complete sentences Cardio Jugular venous distension: no JVD Back/Spine/Pelvis Other: Loading test is positive bilaterally, tenderness of palpation on paraspinal spinal region lumbar spine Cervical Spine: No cervical ROM normal Thoracic/Lumbar Spine: thoracic and lumbar spine normal to inspection, pain with thoraco-lumbar ROM and thoraco-lumbar ROM limited Psych Appearance: grossly normal Mental Status: mental status grossly normal Speech and movement: Normal speech and movement present Affect: normal affect Attitude: cooperative Thought process: Normal thought process present Thought content: Normal thought content present Insight: Good insight present (Psych) Judgement: Good judgement present (Psych) Assessment & Plan Assessment & Plan (1) Degenerative disc disease, cervical: Code(s): M50.30 - Other cervical disc degeneration, unspecified cervical region Category: Medical (2) Degenerative disc disease, lumbar: Code(s): M51.36 - Other intervertebral disc degeneration, lumbar region Category: Medical (3) Chronic pain syndrome: Code(s): G89.4 - Chronic pain syndrome Category: Medical (4) Opiate analgesic contract exists: Code(s): 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 There is no evidence of misuse, abuse or diversion at this time. MassPat reviewed. Now he is taking his medications 5 times a day oxycodone 10 mg. He is also taking pregabalin and he takes Belsomra. He has Narcan at home. Patient expressed understanding about combination of the pregabalin oxycodone and Belsomra. The patient is due for the new prescription on 06/19/2024 this is oxycodone 10 mg 5 times a day. His Narcan was prescribed on 02/11/2024. I will see this patient for the pill count and follow-up in 1 month. Medications: Refilled oxycodone Partial Fill upon patient request. 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
[2024-06-03 12:05] VITALS: BP 110/60; PULSE 56; RESP 16; O2SAT 95; BMI 29.0
== END 2024-06-03 11:42 | disposition home or self-care (01) ==
PROVIDERS: PCP Internal Medicine; Visit Provider Anesthesiology
DX: G89.4 Chronic pain syndrome (principal); M50.30 Other cervical disc degeneration, unspecified cervical region; M51.36 Other intervertebral disc degeneration, lumbar region; Z79.891 Long term (current) use of opiate analgesic; M54.16 Radiculopathy, lumbar region; M47.816 Spondylosis without myelopathy or radiculopathy, lumbar region; R07.9 Chest pain, unspecified; G47.00 Insomnia, unspecified; G58.8 Other specified mononeuropathies
CPT/HCPCS: 99213

== ENCOUNTER → 2024-06-03 11:22 | Outpatient (BNVA) | payer OTHER, MEDICARE, MEDICAID, SELFPAY | PROVIDERS: PCP Internal Medicine; Visit Provider Anesthesiology | DX: M50.30 Other cervical disc degeneration, unspecified cervical region (principal); M51.36 Other intervertebral disc degeneration, lumbar region; G89.4 Chronic pain syndrome; M47.26 Other spondylosis with radiculopathy, lumbar region; R07.9 Chest pain, unspecified; G47.00 Insomnia, unspecified; G58.8 Other specified mononeuropathies; Z79.891 Long term (current) use of opiate analgesic | CPT/HCPCS: 99212 ==

== ENCOUNTER 2024-07-01 11:00 | Outpatient (AMB) | payer OTHER, MEDICARE, MEDICAID, SELFPAY ==
--- NOTE | 2024-07-01 11:02 | MHC.OFFVIS ---
Vital Signs 07/01/24 11:17 Height 5 ft 4 in Weight 169 lb 8 oz BMI 29.1 BP 128/70 Blood Pressure Location Lt brachial Position Sitting Respiration 16 Pulse 66 Pulse Source Pulse Oximeter Pulse Oximetry (%) 97 Oxygen Delivery Method Room Air Intake Visit Reasons: PILL COUNT/Random UDS Intake Note: Patient comes in for pill count and random UDS. Reports pain 8.5/10. Allergies No Known Allergies Allergy (Verified 07/01/24 11:19) HPI Comments Details: Dinh is back in my office for the pill count. He presented today with 87 pills in his possession. His supposed to have 9 pills in his possession. He has 3 pills short. His daily dose is 5 pills a day. Therefore he is within acceptable limits for the pill count however I told him that he does not have to be short each time with his medications if he takes his medications only as needed basis when his pain is most severe. He continues to take pregabalin as well 300 mg he reports good pain relief from pregabalin. He is being prescribed by his PCP with Belsomra 15 mg he wants to request primary care physician to increase the dose of PCP to 20 mg. I discussed with him the need to watch out his breathing especially during the nighttime. He has Narcan prescribed for him as well. Last prescription was on 05/20/2024. I will renew his oxycodone prescription it is due on 07/19/2024 He reports no side effects and no complications of the opioid medications. He reports that medication allows him to be more or less active and perform better activities of daily living. PRIOR: diagnostic bilateral L3- L4- L5 MBB performed on 05/16/23. He reports no pain improvement whatsoever. pain after the procedure remained in the range 8/10 to 9.5/10. SCS nevro trial was discussed with the patient. He reports that his son has computer at home and will be able to help him with the psychological evaluation. After that we will schedule him for a trial. ?He has severe lumbar stenosis.? I recommended him to go back to a neurosurgeon to discuss his spinal stenosis.? However patient adamantly refused to go for consultation with a neurosurgeon.? 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 At multiple intervertebral interval he has ligamentum flavum hypertrophy which could be addressed with MILD procedure. complains on severe pain in neck and severe pain in the back.? He reports pain in the neck radiates into the right upper extremity and pain in the back is not radiating.? He relates his pain to the injuries he sustained while in accident on 09/05. he fell from garbage truck an fell on his back.? About 2 years ago he was on oxycodone about 120 mg a day and the he was more active and able to walk better.? He reports that he had multiple chiropractic manipulations and physical therapy in the past to alleviate his pain and those were not effective, he has home traction unit but it does not alleviate his pain. He takes Lyrica meloxicam Cymbalta phentermine and amitriptyline to help him to sleep at night. He never had surgery on his back although on MRI from 2010 he had severe foraminal stenosis at C4-C5 level and mild central cord compression.? He refuses surgery.? He told me that the surgeries something he would never except for himself.? He received 1 injection of unknown kind in his lumbar spine but never in injection in his cervical spine. [facility] Medical History (Updated 02/02/24 @ 18:49 by CEDRICK Us) Chronic pain syndrome Spondylosis of lumbar region without myelopathy or radiculopathy Spondylosis, cervical Degenerative disc disease, lumbar Degenerative disc disease, cervical Depression Essential hypertension Chronic radicular cervical pain Allergic rhinitis Anxiety COPD (chronic obstructive pulmonary disease) Insomnia Hyperlipidemia Erectile dysfunction Surgical History H/O shoulder surgery Family History Maternal Grandfather Diabetes Mother Cancer Brother Bladder cancer Breast CA Sister No problems noted. Social History Alcohol intake: never Patient Tobacco Use Status: Current everyday Tobacco user Tobacco use type: Cigarette Cigarettes Per Day: 5 Second Hand Smoke Exposure: No Substance Use Type: Marijuana Review of Systems Const All systems reviewed & are unremarkable except as noted in HPI and below Physical Exam Vital Signs: Last Vital Signs Pulse 66 07/01/24 11:17 Resp 16 07/01/24 11:17 BP 128/70 07/01/24 11:17 Pulse Ox 97 07/01/24 11:17 Oxygen Delivery Method Room Air 07/01/24 11:17 BMI result Body Mass Index 29.1 Const General: in distress severe; No comfortable Resp Effort & Inspection: normal respiratory effort and able to speak in complete sentences Cardio Jugular venous distension: no JVD Back/Spine/Pelvis Other: Loading test is positive bilaterally, tenderness of palpation on paraspinal spinal region lumbar spine Cervical Spine: No cervical ROM normal Thoracic/Lumbar Spine: thoracic and lumbar spine normal to inspection, pain with thoraco-lumbar ROM and thoraco-lumbar ROM limited Psych Appearance: grossly normal Mental Status: mental status grossly normal Speech and movement: Normal speech and movement present Affect: normal affect Attitude: cooperative Thought process: Normal thought process present Thought content: Normal thought content present Insight: Good insight present (Psych) Judgement: Good judgement present (Psych) Assessment & Plan Assessment & Plan (1) Degenerative disc disease, cervical: Code(s): M50.30 - Other cervical disc degeneration, unspecified cervical region Category: Medical (2) Degenerative disc disease, lumbar: Code(s): M51.36 - Other intervertebral disc degeneration, lumbar region Category: Medical (3) Chronic pain syndrome: Code(s): G89.4 - Chronic pain syndrome Category: Medical (4) Opiate analgesic contract exists: Code(s): Z79.891 - long-term (current) use of opiate analgesic Category: Medical (5) Lumbar radiculopathy: Code(s): M54.16 - Radiculopathy, lumbar region Category: Medical (6) Lumbar spondylosis: Code(s): M47.816 - Spondylosis without myelopathy or radiculopathy, lumbar region Category: Medical (7) Right-sided chest pain: Code(s): R07.9 - Chest pain, unspecified Category: Medical (8) Insomnia: Code(s): G47.00 - Insomnia, unspecified Category: Medical (9) Intercostal neuralgia: Code(s): G58.8 - Other specified mononeuropathies Category: Medical Plan Dinh has shown accountability for his medication regimen and the pill count was accurate although he has 3 pills short. There is no evidence of misuse, abuse or diversion at this time. Nabil reviewed. Now he is taking his medications 5 times a day oxycodone 10 mg. He is also taking pregabalin and he takes Belsomra. He has Narcan at home. Patient expressed understanding about combination of the pregabalin oxycodone and Belsomra. The patient is due for the new prescription on 07/19/2024 this is oxycodone 10 mg 5 times a day. His Narcan was prescribed on 02/11/2024. I will see this patient for the pill count and follow-up in 1 month. Medications: Refilled oxycodone Partial Fill upon patient request. 10 mg PO Q4-6H 30 days PRN 150 tabs 0RF pain MDD Five pills a day G89.4 - Chronic pain syndrome, M50.30 - Other cervical disc degeneration, unspecified cervical region, M51.36 - Other intervertebral disc degeneration, lumbar region, Z79.891 - long-term (current) use of opiate analgesic Coding Level of Care Code Est Pt Level 3 (97212) Diagnoses Degenerative disc disease, cervical M50.30 Degenerative disc disease, lumbar M51.36 Chronic pain syndrome G89.4 Opiate analgesic contract exists Z79.891 Lumbar radiculopathy M54.16 Lumbar spondylosis M47.816 Right-sided chest pain R07.9 Insomnia G47.00 Intercostal neuralgia G58.8
[2024-07-01 11:17] VITALS: BP 128/70; PULSE 66; RESP 16; O2SAT 97; BMI 29.1
== END 2024-07-01 11:18 | disposition home or self-care (01) ==
PROVIDERS: PCP Internal Medicine; Visit Provider Anesthesiology
DX: G89.4 Chronic pain syndrome (principal); M50.30 Other cervical disc degeneration, unspecified cervical region; M51.36 Other intervertebral disc degeneration, lumbar region; Z79.891 Long term (current) use of opiate analgesic; M54.16 Radiculopathy, lumbar region; M47.816 Spondylosis without myelopathy or radiculopathy, lumbar region; R07.9 Chest pain, unspecified; G47.00 Insomnia, unspecified; G58.8 Other specified mononeuropathies
CPT/HCPCS: 99213

== ENCOUNTER → 2024-07-01 11:00 | Outpatient (BNVA) | payer OTHER, MEDICARE, MEDICAID, SELFPAY | PROVIDERS: PCP Internal Medicine; Visit Provider Anesthesiology | DX: G89.4 Chronic pain syndrome (principal); M50.30 Other cervical disc degeneration, unspecified cervical region; M51.36 Other intervertebral disc degeneration, lumbar region; M47.26 Other spondylosis with radiculopathy, lumbar region; G58.8 Other specified mononeuropathies; R07.9 Chest pain, unspecified; G47.00 Insomnia, unspecified; Z79.891 Long term (current) use of opiate analgesic | CPT/HCPCS: 99212 ==

== ENCOUNTER 2024-08-01 10:35 | Outpatient (AMB) | payer OTHER, MEDICARE, MEDICAID, SELFPAY ==
--- NOTE | 2024-08-01 10:41 | A.OFFVIS_ITS ---
Vital Signs 08/01/24 10:42 Height 5 ft 4 in Weight 166 lb BMI 28.5 BP 136/66 Blood Pressure Location Rt brachial Position Sitting Pulse 65 Pulse Source Pulse Oximeter Pulse Oximetry (%) 99 Oxygen Delivery Method Room Air Intake Visit Reasons: pill count/ random UDS Allergies No Known Allergies Allergy (Verified 08/01/24 10:43) Medication List - Last Reconciled 08/01/24 by Verna Deshpande albuterol sulfate 90 mcg/actuation (Ventolin HFA) inhalation atorvastatin mg PO cetirizine 10 mg PO DAILY clotrimazole 1% topical diydaitshlq-kpxlvsanz-rlompqay 100-62.5-25 mcg (Trelegy Ellipta) inhalation lisinopril 10 mg PO DAILY lisinopril mg PO magnesium oxide 400 mg PO BEDTIME 30 days mirtazapine 7.5 mg PO BEDTIME 30 days naloxone 4 mg/actuation 1 spray intranasal Q3M PRN 1 day omeprazole mg PO oxycodone 10 mg PO Q4-6H PRN 30 days MDD Five pills a day pregabalin 300 mg PO BID 30 days suvorexant (Belsomra) 20 mg PO BEDTIME 30 days HPI Comments Details: Dinh presents to the office for follow up chronic pain and chronic opioid therapy management. Patient is prescribed oxycodone 10 mg, 1 tablet 5 times daily as needed. Patient arrived today with the expectation of having 85 pills, she presented 84 pills which were counted in the presence of two staff members and returned to the patient in the original prescription bottle. This demonstrates responsible attitude toward patient's opioid medications. Pain is reported today as 10/10 and last dose of pain medication was taken at 8:00 this morning. Patient denies side effects including somnolence, constipation, itching, dyspnea, rash, dizziness or weakness. Patient is for random UDS today Prior visit with Dr. Morales: Dinh is back in my office for the pill count. He presented today with 87 pills in his possession. His supposed to have 9 pills in his possession. He has 3 pills short. His daily dose is 5 pills a day. Therefore he is within acceptable limits for the pill count however I told him that he does not have to be short each time with his medications if he takes his medications only as needed basis when his pain is most severe. He continues to take pregabalin as well 300 mg he reports good pain relief from pregabalin. He is being prescribed by his PCP with Belsomra 15 mg he wants to request primary care physician to increase the dose of PCP to 20 mg. I discussed with him the need to watch out his breathing especially during the nighttime. He has Narcan prescribed for him as well. Last prescription was on 05/20/2024. I will renew his oxycodone prescription it is due on 07/19/2024 He reports no side effects and no complications of the opioid medications. He reports that medication allows him to be more or less active and perform better activities of daily living. PRIOR: diagnostic bilateral L3- L4- L5 MBB performed on 05/16/23. He reports no pain improvement whatsoever. pain after the procedure remained in the range 8/10 to 9.5/10. SCS nevro trial was discussed with the patient. He reports that his son has computer at home and will be able to help him with the psychological evaluation. After that we will schedule him for a trial. ?He has severe lumbar stenosis.? I recommended him to go back to a neurosurgeon to discuss his spinal stenosis.? However patient adamantly refused to go for consultation with a neurosurgeon.? 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 At multiple intervertebral interval he has ligamentum flavum hypertrophy which could be addressed with MILD procedure. complains on severe pain in neck and severe pain in the back.? He reports pain in the neck radiates into the right upper extremity and pain in the back is not radiating.? He relates his pain to the injuries he sustained while in accident on 09/05. he fell from garbage truck an fell on his back.? About 2 years ago he was on oxycodone about 120 mg a day and the he was more active and able to walk better.? He reports that he had multiple chiropractic manipulations and physical therapy in the past to alleviate his pain and those were not effective, he has home traction unit but it does not alleviate his pain. He takes Lyrica meloxicam Cymbalta phentermine and amitriptyline to help him to sleep at night. He never had surgery on his back although on MRI from 2010 he had severe foraminal stenosis at C4-C5 level and mild central cord compression.? He refuses surgery.? He told me that the surgeries something he would never except for himself.? He received 1 injection of unknown kind in his lumbar spine but never in injection in his cervical spine. [facility] Medical History (Updated 02/02/24 @ 18:49 by CEDRICK Us) Chronic pain syndrome Spondylosis of lumbar region without myelopathy or radiculopathy Spondylosis, cervical Degenerative disc disease, lumbar Degenerative disc disease, cervical Depression Essential hypertension Chronic radicular cervical pain Allergic rhinitis Anxiety COPD (chronic obstructive pulmonary disease) Insomnia Hyperlipidemia Erectile dysfunction Surgical History H/O shoulder surgery Family History Maternal Grandfather Diabetes Mother Cancer Brother Bladder cancer Breast CA Sister No problems noted. Social History Alcohol intake: never Patient Tobacco Use Status: Current everyday Tobacco user Tobacco use type: Cigarette Cigarettes Per Day: 5 Second Hand Smoke Exposure: No Substance Use Type: Marijuana Review of Systems Const All systems reviewed & are unremarkable except as noted in HPI and below Physical Exam Vital Signs: Last Vital Signs Pulse 65 08/01/24 10:42 BP 136/66 08/01/24 10:42 Pulse Ox 99 08/01/24 10:42 Oxygen Delivery Method Room Air 08/01/24 10:42 BMI result Body Mass Index 28.5 General: awake, alert, oriented. Answers questions appropriately. Fully engaged in examination. Skin: warm, dry, intact HEENT: Normocephalic. Hearing intact. Cardiac: External chest normal in appearance. Respiratory: No cough, audible wheezing or stridor. Abdomen: without gross distension. MS: No obvious swelling or deformities. Able to stand on bilateral tiptoes and bilateral heels.? Ambulates with bilaterally normal heel strike and toe off Neurological: Oriented to person, place, time and situation. Thought process intact. No gait abnormalities appreciated. Psychiatric: Appropriate mood and affect. Good judgment and insight. Results Reviewed Results Reviewed: MRI lumbar spine 07/04/2021. Vertebral body height is maintained. There is a straightening of the normal lumbar lordosis. There is 4 mm of anterolisthesis of L4 on L5 and trace retrolisthesis of L5 on S1. There is very slight levoscoliotic curvature. Bone marrow signal intensity is within normal limits. 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 There is disc desiccation throughout lumbar spine. Conus medullaris terminates at the level of L1. Cauda equina is unremarkable. Levels: T12-L1: Disc degeneration and loss in height. Mild facet arthrosis. No central canal stenosis or neural foraminal narrowing. L1-L2: Disc desiccation and diffuse annular bulge with prominence within the neural foraminal bilaterally. There is moderate central canal stenosis severe left and moderate right neural foraminal narrowing. Posterior a medial displacement of traversing nerve roots in the right lateral recess is suspected. Correlation with radiculopathy is recommended. L2-L3: Diffuse annular bulge. Facet arthrosis. Ligamentous laxity contributing to moderate central canal stenosis, lateral recess stenosis, moderate left and mild right neural foraminal narrowing. L3-L4: Disc desiccation: Loss of heights. Diffuse annular bulge. Bilateral ligamentous laxity causing moderate central canal stenosis, lateral recess stenosis, moderate right and left neural foraminal narrowing. L4-5: Disc desiccation and diffuse annular bulge. Facet arthrosis and ligament of laxity with severe central canal stenosis. Lateral recess stenosis, and moderate bilateral neural foraminal narrowing. Abutment of the exiting L4 nerve roots in the far lateral compartment is not complete excluded. L5-S1: Disc desiccation loss of height. Uncovering the posterior intervertebral disc space. Disc osteophyte complex causing effacement of the anterior thecal space. Lateral recess stenosis and moderate lateral neural foraminal narrowing. The vascular soft tissues unremarkable. 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 No obvious signs of diversion, abuse or misuse of the opioid medications. Will send in prescription for oxycodone 10 mg, take 1 tablet 5 times daily as needed with an advanced date of 08/18/2024. Patient to follow-up in the office in 1 month, sooner if needed. All questions and concerns have been answered and patient agrees with the plan. Medications: Refilled oxycodone Partial Fill upon patient request. 10 mg PO Q4-6H 30 days PRN 150 tabs 0RF pain MDD Five pills a day G89.4 - Chronic pain syndrome, M50.30 - Other cervical disc degeneration, unspecified cervical region, M51.36 - Other intervertebral disc degeneration, lumbar region, Z79.891 - senior care (current) use of opiate analgesic Coding Level of Care Code Est Pt Level 4 (87556) Complex EM visit Add On G2211 Diagnoses Degenerative disc disease, cervical M50.30 Degenerative disc disease, lumbar M51.36 Chronic pain syndrome G89.4 Opiate analgesic contract exists Z79.891 Lumbar radiculopathy M54.16 Lumbar spondylosis M47.816 Right-sided chest pain R07.9 Insomnia G47.00 Intercostal neuralgia G58.8
[2024-08-01 10:42] VITALS: BP 136/66; PULSE 65; O2SAT 99; BMI 28.5
== END 2024-08-01 11:00 | disposition home or self-care (01) ==
PROVIDERS: PCP Internal Medicine; Visit Provider Registered Nurse Emergency
DX: M50.30 Other cervical disc degeneration, unspecified cervical region (principal); M51.36 Other intervertebral disc degeneration, lumbar region; G89.4 Chronic pain syndrome; Z79.891 Long term (current) use of opiate analgesic; M54.16 Radiculopathy, lumbar region; M47.816 Spondylosis without myelopathy or radiculopathy, lumbar region; R07.9 Chest pain, unspecified; G47.00 Insomnia, unspecified; G58.8 Other specified mononeuropathies
CPT/HCPCS: 99214; G2211

== ENCOUNTER → 2024-08-01 10:35 | Outpatient (BNVA) | payer OTHER, MEDICARE, MEDICAID, SELFPAY | PROVIDERS: PCP Internal Medicine; Visit Provider Registered Nurse Emergency | DX: M50.30 Other cervical disc degeneration, unspecified cervical region (principal); M51.36 Other intervertebral disc degeneration, lumbar region; G89.4 Chronic pain syndrome; M47.26 Other spondylosis with radiculopathy, lumbar region; R07.9 Chest pain, unspecified; G47.00 Insomnia, unspecified; G58.8 Other specified mononeuropathies; Z79.891 Long term (current) use of opiate analgesic | CPT/HCPCS: 99212 ==

== ENCOUNTER 2024-08-29 14:33 | Outpatient (AMB) | payer OTHER, MEDICARE, MEDICAID, SELFPAY ==
--- NOTE | 2024-08-29 14:37 | MHC.OFFVIS ---
Vital Signs 08/29/24 14:44 Height 5 ft 4 in Weight 164 lb 2 oz BMI 28.2 BP 124/66 Blood Pressure Location Lt brachial Position Sitting Respiration 16 Pulse 60 Pulse Source Pulse Oximeter Pulse Oximetry (%) 96 Oxygen Delivery Method Room Air Intake Visit Reasons: Pain Increasing patient request/pill count Intake Note: Patient comes in to discuss increase pain and for pill count. Reports pain 10/10. Allergies No Known Allergies Allergy (Verified 08/29/24 14:45) HPI Comments Details: Dinh presents to the office for follow up chronic pain and chronic opioid therapy management. He reports today severe level of pain 10/10. He complains on pain in the left elbow as well as pain in the left neck. He brought with him reports of the MRI of the cervical spine and lumbar spine. The results of the MRI will be dictated as below. He is also scheduled for EMG of the left upper extremity, I presume his primary care physician suspect that he has cubital tunnel syndrome. She is asking me if I can refer him with cubital tunnel syndrome I told him that I will refer him to Dr. Leslee Alfonso our hand surgeon. As of his pain pill count today his supposed to have 90 pills in his possession. He presented with 94 pills in his possession. This demonstrates responsible attitude to were the opioid medications. Even though his pain is very severe he keeps medications in check. I will schedule him for interlaminar cervical C5-C6 epidural steroid injection to cover 2 levels of severe disc protrusions with bilateral foraminal stenosis. It is severe at the level C4-C5 and moderate to severe at the level C5-C6. PRIOR: diagnostic bilateral L3- L4- L5 MBB performed on 05/16/23. He reports no pain improvement whatsoever. pain after the procedure remained in the range 8/10 to 9.5/10. SCS nevro trial was discussed with the patient. He reports that his son has computer at home and will be able to help him with the psychological evaluation. After that we will schedule him for a trial. ?He has severe lumbar stenosis.? I recommended him to go back to a neurosurgeon to discuss his spinal stenosis.? However patient adamantly refused to go for consultation with a neurosurgeon.? 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 At multiple intervertebral interval he has ligamentum flavum hypertrophy which could be addressed with MILD procedure. complains on severe pain in neck and severe pain in the back.? He reports pain in the neck radiates into the right upper extremity and pain in the back is not radiating.? He relates his pain to the injuries he sustained while in accident on 09/05. he fell from garbage truck an fell on his back.? About 2 years ago he was on oxycodone about 120 mg a day and the he was more active and able to walk better.? He reports that he had multiple chiropractic manipulations and physical therapy in the past to alleviate his pain and those were not effective, he has home traction unit but it does not alleviate his pain. He takes Lyrica meloxicam Cymbalta phentermine and amitriptyline to help him to sleep at night. He never had surgery on his back although on MRI from 2010 he had severe foraminal stenosis at C4-C5 level and mild central cord compression.? He refuses surgery.? He told me that the surgeries something he would never except for himself.? He received 1 injection of unknown kind in his lumbar spine but never in injection in his cervical spine. [facility] Medical History (Updated 08/29/24 @ 15:52 by Moiz Morales MD) Chronic pain syndrome Spondylosis of lumbar region without myelopathy or radiculopathy Spondylosis, cervical Degenerative disc disease, lumbar Degenerative disc disease, cervical Depression Essential hypertension Chronic radicular cervical pain Allergic rhinitis Anxiety COPD (chronic obstructive pulmonary disease) Insomnia Hyperlipidemia Erectile dysfunction Surgical History H/O shoulder surgery Family History Maternal Grandfather Diabetes Mother Cancer Brother Bladder cancer Breast CA Sister No problems noted. Social History Alcohol intake: never Patient Tobacco Use Status: Current everyday Tobacco user Tobacco use type: Cigarette Cigarettes Per Day: 5 Second Hand Smoke Exposure: No Substance Use Type: Marijuana Review of Systems Const All systems reviewed & are unremarkable except as noted in HPI and below Physical Exam Vital Signs: Last Vital Signs Pulse 60 08/29/24 14:44 Resp 16 08/29/24 14:44 BP 124/66 08/29/24 14:44 Pulse Ox 96 08/29/24 14:44 Oxygen Delivery Method Room Air 08/29/24 14:44 BMI result Body Mass Index 28.2 Const General: in distress severe; No comfortable Resp Effort & Inspection: normal respiratory effort and able to speak in complete sentences Cardio Jugular venous distension: no JVD Back/Spine/Pelvis Other: Loading test is positive bilaterally, tenderness of palpation on paraspinal spinal region lumbar spine Cervical Spine: No cervical ROM normal Thoracic/Lumbar Spine: thoracic and lumbar spine normal to inspection, pain with thoraco-lumbar ROM and thoraco-lumbar ROM limited Extrem Other: Limited mobility of the left upper extremity in the elbow. Severe tenderness on palpation in projection of the medial elbow with pain radiating down to the medial surface of the forearm and into the 5th finger on the left. Psych Appearance: grossly normal Mental Status: mental status grossly normal Speech and movement: Normal speech and movement present Affect: normal affect Attitude: cooperative Thought process: Normal thought process present Thought content: Normal thought content present Insight: Good insight present (Psych) Judgement: Good judgement present (Psych) Results Reviewed Results Reviewed: MRI cervical spine 08/21/2024. Findings: The visualized portion of the brain and skull base are normal. Unremarkable paraspinal soft tissues. No concerning marrow infiltrative lesions. Scattered Modic endplate changes most prominent C5-C6. The cord is normal in caliber. No cord signal abnormality. Cervical disc levels: C2-C3: Slight anterolisthesis. Mild endplate irregularity. Severe left and mild right facet arthropathy. Severe left and mild right foraminal stenosis. No significant spinal stenosis. C3-C4: Slight anterolisthesis. Mild endplate irregularity. Small anterior endplate osteophytes. Moderate left uncovertebral spurs. Moderate left and mild right facet arthropathy. No spinal stenosis. Severe left foraminal stenosis. C4-C5: Moderate risk disc space height loss and endplate irregularity. Moderate anterior endplate osteophytes. Moderate bilateral uncovertebral spurs and moderate left central focal protrusion. The protrusion indent the cord and in combination with mild posterior ligamentous hypertrophy results in moderate spinal stenosis. Mild bilateral facet arthropathy. Severe bilateral foraminal stenosis. C5-C6: Moderate disc space height loss severe endplate irregularity. Moderate bilateral uncovertebral spurs. Prominent right central disc osteophyte complex and might posterior ligamentum flavum hypertrophy resulting in moderate severe spinal stenosis. Minimal bilateral facet arthropathy. Moderate left and severe right foraminal stenosis. C6-C7: Moderate disc space height and lost and endplate irregularity. Moderate bilateral uncovertebral spurs. No spinal stenosis. Moderate bilateral foraminal stenosis. C7-T1 moderate disc space height loss and endplate irregularity. Small bilateral intervertebral spurs. Mild bilateral facet arthropathy. Moderate right greater than left foraminal stenosis. MRI of the lumbar spine 08/21/2024. Findings: There is mild S shaped lumbar scoliosis. Moderate Baastrup changes. No compression deformity or concerning marrow infiltrative lesions. Prominent Modic endplate changes at L1-L2. Mild paraspinal muscular atrophy. Otherwise unremarkable paraspinal soft tissues. Lumbar disc levels: L1-L2: Severe disc space height loss and endplate irregularity with Modic endplate changes. Small symmetric disc osteophyte complex and minimal bilateral facet arthropathy. Mild spinal stenosis. Mild left greater than right foraminal stenosis. L2-L3 mild disc space height loss and endplate irregularity. Mild symmetric disc bulge with small endplate osteophytes and minimal degenerative changes of the facet joints. Mild bilateral ligamentum flavum hypertrophy. Mild spinal stenosis with mild right and minimal left lateral recess stenosis. Mild left foraminal stenosis. L3-L4 mild endplate irregularity. Small symmetric disc bulge and mild bilateral facet arthropathy. Mild bilateral ligamentum flavum hypertrophy. Yomp-ii-ldofucmm right greater than left foraminal stenosis. Mild spinal stenosis with mild right lateral recess stenosis. Mild left and moderate right foraminal stenosis. L4-5: Mild endplate irregularity. Slight anterolisthesis. Mild symmetric disc bulge. Left greater than right ligamentum flavum hypertrophy with widening of the left facet joint, suggesting facet joint hypertrophy. Moderate bilateral facet arthropathy. Moderate spinal stenosis. Moderate greater right than left foraminal stenosis. L5-S1: Moderate severe disc height loss and moderate endplate irregularity with small disc osteophyte complex eccentric to the right. There is a small amount of superiorly extruded disc material in the right foraminal zone which contacts the exiting L5 nerve root. This in combination with mild hypertrophic degenerative changes of the facet joints results in moderate right foraminal stenosis. There is mild left facet arthropathy with moderate left foraminal stenosis. Moderate spinal stenosis. Assessment & Plan Assessment & Plan (1) Cubital tunnel syndrome on left: Code(s): G56.22 - Lesion of ulnar nerve, left upper limb Category: Medical (2) Degenerative disc disease, cervical: Code(s): M50.30 - Other cervical disc degeneration, unspecified cervical region Category: Medical (3) Degenerative disc disease, lumbar: Code(s): M51.36 - Other intervertebral disc degeneration, lumbar region Category: Medical (4) Chronic pain syndrome: Code(s): G89.4 - Chronic pain syndrome Category: Medical (5) Opiate analgesic contract exists: Code(s): Z79.891 - detention (current) use of opiate analgesic Category: Medical (6) Lumbar radiculopathy: Code(s): M54.16 - Radiculopathy, lumbar region Category: Medical (7) Lumbar spondylosis: Code(s): M47.816 - Spondylosis without myelopathy or radiculopathy, lumbar region Category: Medical (8) Right-sided chest pain: Code(s): R07.9 - Chest pain, unspecified Category: Medical (9) Insomnia: Code(s): G47.00 - Insomnia, unspecified Category: Medical (10) Intercostal neuralgia: Code(s): G58.8 - Other specified mononeuropathies Category: Medical (11) Cervical radiculopathy: Code(s): M54.12 - Radiculopathy, cervical region Category: Medical Plan The patient came today for the pill count his pill count is correct. He demonstrates responsible attitude to opioid medications. He will be prescribed oxycodone 10 mg 5 times a day for next month starting from 09/17/2024. He is complaining on pain in the left elbow. He had on the right elbow cubital tunnel syndrome surgery. I suspect he has the same anatomical changes on the left now. He is scheduled for EMG on 09/03/2024. I will refer this patient to Dr. Leslee Alfonso to evaluate a feasibility of needle tunnel surgery on the left. He also complains on pain in the neck radiating into left upper extremity. This pain is different in pattern and mostly radiates into the thumb of the patient. I suspect radiculopathy on the left. I will schedule him for interlaminar C6-C7 epidural steroid injection. This will be parasagittal left injection. Orders: Referrals Orthopedics Referral G56.22 - Lesion of ulnar nerve, left upper limb Medications: Refilled oxycodone Partial Fill upon patient request. 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 Coding Level of Care Code Est Pt Level 4 (53161) Diagnoses Cubital tunnel syndrome on left G56.22 Degenerative disc disease, cervical M50.30 Degenerative disc disease, lumbar M51.36 Chronic pain syndrome G89.4 Opiate analgesic contract exists Z79.891 Lumbar radiculopathy M54.16 Lumbar spondylosis M47.816 Right-sided chest pain R07.9 Insomnia G47.00 Intercostal neuralgia G58.8 Cervical radiculopathy M54.12
[2024-08-29 14:44] VITALS: BP 124/66; PULSE 60; RESP 16; O2SAT 96; BMI 28.2
== END 2024-08-29 14:55 | disposition home or self-care (01) ==
PROVIDERS: PCP Internal Medicine; Visit Provider Anesthesiology
DX: G56.22 Lesion of ulnar nerve, left upper limb (principal); M50.30 Other cervical disc degeneration, unspecified cervical region; Z79.891 Long term (current) use of opiate analgesic; G89.4 Chronic pain syndrome; M54.16 Radiculopathy, lumbar region; M47.816 Spondylosis without myelopathy or radiculopathy, lumbar region; R07.9 Chest pain, unspecified; G47.00 Insomnia, unspecified; G58.8 Other specified mononeuropathies; M54.12 Radiculopathy, cervical region
CPT/HCPCS: 99214

== ENCOUNTER → 2024-08-29 14:33 | Outpatient (BNVA) | payer OTHER, MEDICARE, MEDICAID, SELFPAY | PROVIDERS: PCP Internal Medicine; Visit Provider Anesthesiology | DX: G89.4 Chronic pain syndrome (principal); G56.22 Lesion of ulnar nerve, left upper limb; M50.30 Other cervical disc degeneration, unspecified cervical region; M51.369 Other intervertebral disc degeneration, lumbar region without mention of lumbar back pain or lower extremity pain; M47.26 Other spondylosis with radiculopathy, lumbar region; R07.9 Chest pain, unspecified; G47.00 Insomnia, unspecified; G58.8 Other specified mononeuropathies; M54.12 Radiculopathy, cervical region; Z79.891 Long term (current) use of opiate analgesic | CPT/HCPCS: 99212 ==

== ENCOUNTER 2024-09-26 11:40 | Outpatient (AMB) | payer OTHER, MEDICARE, MEDICAID, SELFPAY ==
--- NOTE | 2024-09-26 11:41 | A.OFFVIS_ITS ---
Vital Signs 09/26/24 11:48 Height 5 ft 4 in Weight 161 lb 6 oz BMI 27.7 BP 138/66 Blood Pressure Location Lt brachial Position Sitting Respiration 16 Pulse 78 Pulse Source Pulse Oximeter Pulse Oximetry (%) 96 Oxygen Delivery Method Room Air Intake Visit Reasons: PILL COUNT Intake Note: Patient comes in for pill count. Reports pain 9.5/10. Allergies No Known Allergies Allergy (Verified 09/26/24 11:49) HPI Comments Details: Dinh presents to the office for follow up chronic pain and chronic opioid therapy management. He reports today severe level of pain 9.5/10 He complains on pain in the left elbow as well as pain in the left neck. He brought with him reports of the MRI of the cervical spine and lumbar spine. The results of the MRI is as below. He went for EMG and it demonstrated radiculopathy. He is scheduled for interlaminar epidural steroid injection with me on October 22. Pill count today: His supposed to bring 105 pills in his possession today. He presented with 105 pills in his possession today. Therefore his pill count is correct. cervical C5-C6 epidural steroid injection to cover 2 levels of severe disc protrusions with bilateral foraminal stenosis. It is severe at the level C4-C5 and moderate to severe at the level C5-C6. PRIOR: diagnostic bilateral L3- L4- L5 MBB performed on 05/16/23. He reports no pain improvement whatsoever. pain after the procedure remained in the range 8/10 to 9.5/10. SCS nevro trial was discussed with the patient. He reports that his son has computer at home and will be able to help him with the psychological evaluation. After that we will schedule him for a trial. ?He has severe lumbar stenosis.? I recommended him to go back to a neurosurgeon to discuss his spinal stenosis.? However patient adamantly refused to go for consultation with a neurosurgeon.? 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 At multiple intervertebral interval he has ligamentum flavum hypertrophy which could be addressed with MILD procedure. complains on severe pain in neck and severe pain in the back.? He reports pain in the neck radiates into the right upper extremity and pain in the back is not radiating.? He relates his pain to the injuries he sustained while in accident on 09/05. he fell from garbage truck an fell on his back.? About 2 years ago he was on oxycodone about 120 mg a day and the he was more active and able to walk better.? He reports that he had multiple chiropractic manipulations and physical therapy in the past to alleviate his pain and those were not effective, he has home traction unit but it does not alleviate his pain. He takes Lyrica meloxicam Cymbalta phentermine and amitriptyline to help him to sleep at night. He never had surgery on his back although on MRI from 2010 he had severe foraminal stenosis at C4-C5 level and mild central cord compression.? He refuses surgery.? He told me that the surgeries something he would never except for himself.? He received 1 injection of unknown kind in his lumbar spine but never in injection in his cervical spine. [facility] Medical History (Updated 08/29/24 @ 15:52 by Moiz Morales MD) Chronic pain syndrome Spondylosis of lumbar region without myelopathy or radiculopathy Spondylosis, cervical Degenerative disc disease, lumbar Degenerative disc disease, cervical Depression Essential hypertension Chronic radicular cervical pain Allergic rhinitis Anxiety COPD (chronic obstructive pulmonary disease) Insomnia Hyperlipidemia Erectile dysfunction Surgical History H/O shoulder surgery Family History Maternal Grandfather Diabetes Mother Cancer Brother Bladder cancer Breast CA Sister No problems noted. Social History (Reviewed 01/16/24 @ 10:37 by Verito Wills [facility]) Alcohol intake: never Patient Tobacco Use Status: Current everyday Tobacco user Tobacco use type: Cigarette Cigarettes Per Day: 5 Second Hand Smoke Exposure: No Substance Use Type: Marijuana Review of Systems Const All systems reviewed & are unremarkable except as noted in HPI and below Physical Exam Vital Signs: Last Vital Signs Pulse 78 09/26/24 11:48 Resp 16 09/26/24 11:48 BP 138/66 09/26/24 11:48 Pulse Ox 96 09/26/24 11:48 Oxygen Delivery Method Room Air 09/26/24 11:48 BMI result Body Mass Index 27.7 Const General: in distress severe; No comfortable Resp Effort & Inspection: normal respiratory effort and able to speak in complete sentences Cardio Jugular venous distension: no JVD Back/Spine/Pelvis Other: Loading test is positive bilaterally, tenderness of palpation on paraspinal spinal region lumbar spine Cervical Spine: No cervical ROM normal Thoracic/Lumbar Spine: thoracic and lumbar spine normal to inspection, pain with thoraco-lumbar ROM and thoraco-lumbar ROM limited Extrem Other: Limited mobility of the left upper extremity in the elbow. Severe tenderness on palpation in projection of the medial elbow with pain radiating down to the medial surface of the forearm and into the 5th finger on the left. Psych Appearance: grossly normal Mental Status: mental status grossly normal Speech and movement: Normal speech and movement present Affect: normal affect Attitude: cooperative Thought process: Normal thought process present Thought content: Normal thought content present Insight: Good insight present (Psych) Judgement: Good judgement present (Psych) Results Reviewed Results Reviewed: MRI cervical spine 08/21/2024. Findings: The visualized portion of the brain and skull base are normal. Unremarkable paraspinal soft tissues. No concerning marrow infiltrative lesions. Scattered Modic endplate changes most prominent C5-C6. The cord is normal in caliber. No cord signal abnormality. Cervical disc levels: C2-C3: Slight anterolisthesis. Mild endplate irregularity. Severe left and mild right facet arthropathy. Severe left and mild right foraminal stenosis. No significant spinal stenosis. C3-C4: Slight anterolisthesis. Mild endplate irregularity. Small anterior endplate osteophytes. Moderate left uncovertebral spurs. Moderate left and mild right facet arthropathy. No spinal stenosis. Severe left foraminal stenosis. C4-C5: Moderate risk disc space height loss and endplate irregularity. Moderate anterior endplate osteophytes. Moderate bilateral uncovertebral spurs and moderate left central focal protrusion. The protrusion indent the cord and in combination with mild posterior ligamentous hypertrophy results in moderate spinal stenosis. Mild bilateral facet arthropathy. Severe bilateral foraminal stenosis. C5-C6: Moderate disc space height loss severe endplate irregularity. Moderate bilateral uncovertebral spurs. Prominent right central disc osteophyte complex and might posterior ligamentum flavum hypertrophy resulting in moderate severe spinal stenosis. Minimal bilateral facet arthropathy. Moderate left and severe right foraminal stenosis. C6-C7: Moderate disc space height and lost and endplate irregularity. Moderate bilateral uncovertebral spurs. No spinal stenosis. Moderate bilateral foraminal stenosis. C7-T1 moderate disc space height loss and endplate irregularity. Small bilateral intervertebral spurs. Mild bilateral facet arthropathy. Moderate right greater than left foraminal stenosis. MRI of the lumbar spine 08/21/2024. Findings: There is mild S shaped lumbar scoliosis. Moderate Baastrup changes. No compression deformity or concerning marrow infiltrative lesions. Prominent Modic endplate changes at L1-L2. Mild paraspinal muscular atrophy. Otherwise unremarkable paraspinal soft tissues. Lumbar disc levels: L1-L2: Severe disc space height loss and endplate irregularity with Modic endplate changes. Small symmetric disc osteophyte complex and minimal bilateral facet arthropathy. Mild spinal stenosis. Mild left greater than right foraminal stenosis. L2-L3 mild disc space height loss and endplate irregularity. Mild symmetric disc bulge with small endplate osteophytes and minimal degenerative changes of the facet joints. Mild bilateral ligamentum flavum hypertrophy. Mild spinal stenosis with mild right and minimal left lateral recess stenosis. Mild left foraminal stenosis. L3-L4 mild endplate irregularity. Small symmetric disc bulge and mild bilateral facet arthropathy. Mild bilateral ligamentum flavum hypertrophy. [id number] right greater than left foraminal stenosis. Mild spinal sten osis with mild right lateral recess stenosis. Mild left and moderate right foraminal stenosis. L4-5: Mild endplate irregularity. Slight anterolisthesis. Mild symmetric disc bulge. Left greater than right ligamentum flavum hypertrophy with widening of the left facet joint, suggesting facet joint hypertrophy. Moderate bilateral facet arthropathy. Moderate spinal stenosis. Moderate greater right than left foraminal stenosis. L5-S1: Moderate severe disc height loss and moderate endplate irregularity with small disc osteophyte complex eccentric to the right. There is a small amount of superiorly extruded disc material in the right foraminal zone which contacts the exiting L5 nerve root. This in combination with mild hypertrophic degenerative changes of the facet joints results in moderate right foraminal stenosis. There is mild left facet arthropathy with moderate left foraminal stenosis. Moderate spinal stenosis. 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 Category: Medical (6) Lumbar radiculopathy: Code(s): M54.16 - Radiculopathy, lumbar region Category: Medical (7) Lumbar spondylosis: Code(s): M47.816 - Spondylosis without myelopathy or radiculopathy, lumbar region Category: Medical (8) Right-sided chest pain: Code(s): R07.9 - Chest pain, unspecified Category: Medical (9) Insomnia: Code(s): G47.00 - Insomnia, unspecified Category: Medical (10) Intercostal neuralgia: Code(s): G58.8 - Other specified mononeuropathies Category: Medical (11) Cervical radiculopathy: Code(s): M54.12 - Radiculopathy, cervical region Category: Medical Plan The patient came today for the pill count his pill count is correct. He demonstrates responsible attitude to opioid medications. He will be prescribed oxycodone 10 mg 5 times a day for next month starting from 10/17/2024 He is complaining on pain in the left elbow. He had on the right elbow cubital tunnel syndrome surgery. I suspect he has the same anatomical changes on the left now. He went. I for EMG demonstrated radiculopathy. He is scheduled for interlaminar epidural steroid injection. He also complains on pain in the neck radiating into left upper extremity. This pain is different in pattern and mostly radiates into the thumb of the patient. I suspect radiculopathy on the left. I will schedule him for interlaminar C6-C7 epidural steroid injection. This will be parasagittal left injection. Medications: Refilled oxycodone Partial Fill upon patient request. 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
[2024-09-26 11:48] VITALS: BP 138/66; PULSE 78; RESP 16; O2SAT 96; BMI 27.7
== END 2024-09-26 12:00 | disposition home or self-care (01) ==
LOC: HO.PMC 11:40
PROVIDERS: PCP Internal Medicine; Visit Provider Anesthesiology
DX: G89.4 Chronic pain syndrome (principal); G56.22 Lesion of ulnar nerve, left upper limb; M50.30 Other cervical disc degeneration, unspecified cervical region; Z79.891 Long term (current) use of opiate analgesic; M51.369 Other intervertebral disc degeneration, lumbar region without mention of lumbar back pain or lower extremity pain; M54.16 Radiculopathy, lumbar region; M47.816 Spondylosis without myelopathy or radiculopathy, lumbar region; R07.9 Chest pain, unspecified; G47.00 Insomnia, unspecified; G58.8 Other specified mononeuropathies; M54.12 Radiculopathy, cervical region
CPT/HCPCS: 99213

== ENCOUNTER → 2024-09-26 11:40 | Outpatient (BNVA) | payer OTHER, MEDICARE, MEDICAID, SELFPAY | PROVIDERS: PCP Internal Medicine; Visit Provider Anesthesiology | DX: G89.4 Chronic pain syndrome (principal); G56.22 Lesion of ulnar nerve, left upper limb; M50.30 Other cervical disc degeneration, unspecified cervical region; M51.369 Other intervertebral disc degeneration, lumbar region without mention of lumbar back pain or lower extremity pain; M47.26 Other spondylosis with radiculopathy, lumbar region; R07.9 Chest pain, unspecified; G47.00 Insomnia, unspecified; G58.8 Other specified mononeuropathies; M54.12 Radiculopathy, cervical region; Z79.891 Long term (current) use of opiate analgesic | CPT/HCPCS: 99212 ==

== ENCOUNTER 2024-10-22 06:07 | Outpatient (REF) | payer OTHER, MEDICARE, MEDICAID, SELFPAY | END 2024-10-22 06:08 | disposition home or self-care (01) | LOC: CF 06:07 | PROVIDERS: Visit Provider Anesthesiology | DX: Z13.89 Encounter for screening for other disorder (principal) | CPT/HCPCS: J1100; J2003; Q9967 ==

== ENCOUNTER 2024-10-30 11:01 | Outpatient (AMB) | payer OTHER, MEDICARE, MEDICAID, SELFPAY ==
--- NOTE | 2024-10-30 11:07 | MHC.OFFVIS ---
Intake Visit Reasons: Medication Count Intake Note: Dinh comes in today for a bill count to oxycodone, patient should have 85 tablets and presents with 86 tablets which he last took today 10/30/24 at 10:30am. 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 He went for epidural steroid injection on October 22 however unfortunately he forgot to stop his blood thinner medications. The procedure was rescheduled. Today he came with the pill count his supposed to bring 85 pills in his possession. He brought 86 pills in his possession. Therefore his pill count is correct cure. This demonstrates responsible attitude to were the opioid medications. He denies side effects of the opioid medications. He denies constipation. He denies side effects of the pregabalin which is also prescribed to him. He admits that pregabalin helps him to have a good night's sleep. PRIOR: diagnostic bilateral L3- L4- L5 MBB performed on 05/16/23. He reports no pain improvement whatsoever. pain after the procedure remained in the range 8/10 to 9.5/10. SCS nevro trial was discussed with the patient. He reports that his son has computer at home and will be able to help him with the psychological evaluation. After that we will schedule him for a trial. ?He has severe lumbar stenosis.? I recommended him to go back to a neurosurgeon to discuss his spinal stenosis.? However patient adamantly refused to go for consultation with a neurosurgeon.? 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 At multiple intervertebral interval he has ligamentum flavum hypertrophy which could be addressed with MILD procedure. complains on severe pain in neck and severe pain in the back.? He reports pain in the neck radiates into the right upper extremity and pain in the back is not radiating.? He relates his pain to the injuries he sustained while in accident on 09/05. he fell from garbage truck an fell on his back.? About 2 years ago he was on oxycodone about 120 mg a day and the he was more active and able to walk better.? He reports that he had multiple chiropractic manipulations and physical therapy in the past to alleviate his pain and those were not effective, he has home traction unit but it does not alleviate his pain. He takes Lyrica meloxicam Cymbalta phentermine and amitriptyline to help him to sleep at night. He never had surgery on his back although on MRI from 2010 he had severe foraminal stenosis at C4-C5 level and mild central cord compression.? He refuses surgery.? He told me that the surgeries something he would never except for himself.? He received 1 injection of unknown kind in his lumbar spine but never in injection in his cervical spine. [facility] Medical History (Updated 08/29/24 @ 15:52 by Moiz Morales MD) Chronic pain syndrome Spondylosis of lumbar region without myelopathy or radiculopathy Spondylosis, cervical Degenerative disc disease, lumbar Degenerative disc disease, cervical Depression Essential hypertension Chronic radicular cervical pain Allergic rhinitis Anxiety COPD (chronic obstructive pulmonary disease) Insomnia Hyperlipidemia Erectile dysfunction Surgical History H/O shoulder surgery Family History Maternal Grandfather Diabetes Mother Cancer Brother Bladder cancer Breast CA Sister No problems noted. Social History Alcohol intake: never Patient Tobacco Use Status: Current everyday Tobacco user Tobacco use type: Cigarette Cigarettes Per Day: 5 Second Hand Smoke Exposure: No Substance Use Type: Marijuana Review of Systems Const All systems reviewed & are unremarkable except as noted in HPI and below Physical Exam Const General: in distress severe; No comfortable Resp Effort & Inspection: normal respiratory effort and able to speak in complete sentences Cardio Jugular venous distension: no JVD Back/Spine/Pelvis Other: Loading test is positive bilaterally, tenderness of palpation on paraspinal spinal region lumbar spine Cervical Spine: No cervical ROM normal Thoracic/Lumbar Spine: thoracic and lumbar spine normal to inspection, pain with thoraco-lumbar ROM and thoraco-lumbar ROM limited Extrem Other: Limited mobility of the left upper extremity in the elbow. Severe tenderness on palpation in projection of the medial elbow with pain radiating down to the medial surface of the forearm and into the 5th finger on the left. Psych Appearance: grossly normal Mental Status: mental status grossly normal Speech and movement: Normal speech and movement present Affect: normal affect Attitude: cooperative Thought process: Normal thought process present Thought content: Normal thought content present Insight: Good insight present (Psych) Judgement: Good judgement present (Psych) Assessment & Plan Assessment & Plan (1) Cubital tunnel syndrome on left: Code(s): G56.22 - Lesion of ulnar nerve, left upper limb Category: Medical (2) Degenerative disc disease, cervical: Code(s): M50.30 - Other cervical disc degeneration, unspecified cervical region Category: Medical (3) Degenerative disc disease, lumbar: Code(s): M51.36 - Other intervertebral disc degeneration, lumbar region Category: Medical (4) Chronic pain syndrome: Code(s): G89.4 - Chronic pain syndrome Category: Medical (5) Opiate analgesic contract exists: Code(s): Z79.891 - correction (current) use of opiate analgesic Category: Medical (6) Lumbar radiculopathy: Code(s): M54.16 - Radiculopathy, lumbar region Category: Medical (7) Lumbar spondylosis: Code(s): M47.816 - Spondylosis without myelopathy or radiculopathy, lumbar region Category: Medical (8) Right-sided chest pain: Code(s): R07.9 - Chest pain, unspecified Category: Medical (9) Insomnia: Code(s): G47.00 - Insomnia, unspecified Category: Medical (10) Intercostal neuralgia: Code(s): G58.8 - Other specified mononeuropathies Category: Medical (11) Cervical radiculopathy: Code(s): M54.12 - Radiculopathy, cervical region Category: Medical Plan The patient came today for the pill count his pill count is correct. He demonstrates responsible attitude to opioid medications. He will be prescribed oxycodone 10 mg 5 times a day for next month starting from 11/16/2024 He is complaining on pain in the left elbow. He had on the right elbow cubital tunnel syndrome surgery. I suspect he has the same anatomical changes on the left now. He went. I for EMG demonstrated radiculopathy. He is scheduled for interlaminar epidural steroid injection. He also complains on pain in the neck radiating into left upper extremity. This pain is different in pattern and mostly radiates into the thumb of the patient. I suspect radiculopathy on the left. He was scheduled for interlaminar C6-C7 epidural steroid injection however he forgot to stop his blood thinners. He is rescheduled for the procedure it will be parasagittal procedure on the left. Medications: Refilled oxycodone Partial Fill upon patient request. 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
--- OUTSIDE RECORDS SUMMARY | 2024-11-05 17:54 | XMS_ITS | Data Portability ---
Author Organization [place] - [facility] Address [address] [place] [address] Care Team Providers Care Business Developer Name Role Phone DESHAWN GARCIA Primary Care Provider Assessment Encounter Date Assessment Date Assessment LastModified by Organization Details LastModified Time 12/16/2021 12/16/2021 Overview/History : 66 year old being seen today for complaints of improving shortness of breath, requesting COVID test in order to attend his pain management visit in 8 days Exam: mild acute on chronic dyspnea, improving per patient despite no use of rescue inhaler, poor effort with demonstrated MDI use; no aerochamber in home. No rhinorrhea or cough during exam, per resident some increase in cough, dry. Denies any fever, chills, malaise, chest pain. VS reviewed, unremarkable DDx considered, but not limited to: COPD exacerbation, COVID 19 Work up/Results: ordered COVID PCR; spacer ordered with full explanation of proper technique provided. Plan/Discussion: Provided number for COVID results; to take rescue inhaler 2 puffs scheduled with spacer 4 times a day for the next 72 hours along with continue to take scheduled Mucinex, increase fluids. Follow up with PCP 5-7 days, go to ED sooner if any increased shortness of breath, dyspnea, chest pain, fever, cough IMikayla FNP saw this patient in conjunction with Sara Childs. Clinical decision making and documentation was done together and my oversight was for training and instructional purposes. I agree with their assessment and plan. Proper Personal Protective Equipment (PPE), including gloves, eye protection and masks were donned and doffed appropriately and all equipment cleaned using approved technique with germicidal disposable wipes prior to and after care of this patient according to [facility]'s infection prevention protocols. Time On Scene with Patient: 01:08:28 soraida Not available 12/19/2021 09:48:20 Plan of Treatment Reminders Order Date Submit Date Provider Last Modified By Organization Details Last Modified Time Details Appointments None recorded. Lab unlisted lab - covid-19 (novel coronaviru s) PCR 2021 022 [email or web address] [facility], [address] [place], [address], 12:39:52 Referral None recorded. Procedures None recorded. Surgeries None recorded. Imaging None recorded. Medication Orders None recorded. Patient TargetsNo targets recorded. Patient Instructions Encounter Date Encounter Id Patient Instructions Last Modified By Organization Details Last Modified Time 12/16/2021 [id number] You were seen today for a 4 day complaint of now-improving shortness of breath. Please take your rescue inhaler with the new prescribed spacer 4 times a day for the next 72 hours along with your scheduled Mucinex while awaiting your COVIDtest results. Increase fluids. Follow up with your PCP in 5-7 days; call sooner or go to ER if any increased shortness of breath, cough, fever or additional symptoms. Call [phone] if you need to access your COVID results. soraida Not available 12/16/2021 13:50:50 Reason for Referral None Reported. Results Created Date Observation Date Name Description Value Unit Range Abnormal Flag Note LastModifiedBy Organization Detail LastModifiedTime 12/16/1912/20/20212018 NOVEL CORON AVIRU S, PCR covid-19, PCR NOT DETEC CY Refer ence range : NOT DETEC CY (NOTE ) A Not Detec cy resul t means that SARS- CoV-2 RNA was not prese nt in the speci men above the limit of detec tion. A Not Detec cy resul t does not rule out the possi bilit y of COVID -19 and shoul d not be used as the sole basis for treat ment or patie nt manag ement decis ions. If COVID -19 is still suspe cted, based on expos ure histo ry toget her with other clini kristina findi ngs, re-te sting shoul d be consi dered in the paramjit xt of clini kristina obser vatio ns and epide miolo gical data for patie nt manag ement decis ions. = Test Metho d: Nucle ic Acid Ampli ficat ion Test inclu ding rever se trans cript ion polym erase chain react ion (RT-P CR) and trans cript ion media cy ampli ficat ion (TMA) . The test metho d meets the [facility] se Contr ol and preve ntion ([facility]) pre depar ture and arriv al requi remen t for viral test for COVID -19 dated 2020. Testi ng requi remen ts for [facility] e with time. The patie nt is respo nsibl e for deter minin g the test requi remen ts for each natio n while they are [facility]. This test has been autho rized by the FDA under an Emerg ency Use Autho rizat ion (EUA) for use by autho rized labor atori es. = Pleas e revie w the Fact Sheet s and FDA autho rized label ing avail able for healt h care provi ders and patie nts using the follo wing websi satya: https ://elizabeth w.que stdia gnost ics.c om/ho me/Co vid-1 9/HCP /Ques tLDT/ fact- sheet .html https ://elizabeth w.que stdia gnost ics.c om/ho me/Co vid-1 9/Pat ients /Ques tLDT/ fact- sheet .html = Due to the curre nt publi c healt h emerg ency, [facility] is accep ting sampl es from appro priat e clini kristina sourc es colle cted using wide varie ty of swabs and trans port media for COVID -19. Not detec cy test resul ts deriv ed from speci mens recei ata in non- comme rcial ly manuf actur ed viral colle ction kits or those not yet autho rized by FDA for COVID -19 testi ng shoul d be cauti ously evalu ated and take extra preca ution s such as addit ional clini kristina monit oring , inclu mary colle ction of an addit ional speci men. = Addit ional infor matio n about COVID -19 can be found at the [employer] [facility] [facility] te: www.Mele uestD iagno [employer] .com/ Covid 19. Test Perfo rmed by: [facility] [employer] [facility], [address] [place]. [address] . Labor atory Direc tor: Jerome gomez MD. Not Available [facility] [address], [place], [address], 12/20/2021 07:34:11 Result Notes None recorded. Procedures Surgical History Date Name Laterality Status Provider Name and Address Organization Details Recorded Time repair of perforated colon completed Sara Childs NP [address], [place], [address], [place] - [facility] 12/16/2021 13:10:48 Imaging Results None recorded. Procedure Notes None recorded. Medical Equipment None Reported. Allergies No known drug allergies Medications Name Sig Start Date Stop Date Status Note LastModified by Organization Details LastModified Time albuterol sulfate 2.5 mg/3 mL (0.083 %) solution for nebulization active Not Available Not Available Not Available cetirizine 10 mg tablet 12/16 completed Not Available Not Available Not Available meloxicam 15 mg tablet 12/16 completed Not Available Not Available Not Available lisinopril 20 mg tablet active Not Available Not Available No t Available phentermine 37.5 mg tablet 12/16 completed Not Available Not Available Not Available omeprazole 40 mg capsule,delayed release active Not Available Not Available Not Available amitriptyline 50 mg tablet active Not Available Not Available Not Available acetaminophen 500 mg tablet 12/16 completed Not Available Not Available Not Available lisinopril 10 mg tablet 12/16 completed Not Available Not Available Not Available docusate sodium 100 mg capsule 12/16 completed Not Available Not Available Not Available furosemide 20 mg tablet 12/16 completed Not Available Not Available Not Available amoxicillin 875 mg-potassium clavulanate 125 mg tablet 12/16 completed Not Available Not Available Not Available Ventolin HFA 90 mcg/actuation aerosol inhaler active Not Available Not Availa ble Not Available oxycodone 5 mg tablet active Not Available Not Available Not Available duloxetine 60 mg capsule,delayed release active Not Available Not Available Not Available pregabalin 300 mg capsule 12/16 completed Not Available Not Available Not Available oxycodone 10 mg tablet 12/16 completed Not Available Not Available Not Available buprenorphine 5 mcg/hour weekly transdermal patch 12/16 completed Not Available Not Available Not Available Eliquis 5 mg tablet 12/16 completed Not Available Not Available Not Available Spiriva Respimat 2.5 mcg/actuation solution for inhalation 12/16 completed Not Available Not Available Not Available Trelegy Ellipta 100 mcg-62.5 mcg-25 mcg powder for inhalation active Not Available Not Available N ot Available Vitals Date Recorded Body temperature Oxygen saturation Oxygen saturation in Arterial blood by Pulse oximetry Respiratory rate Heart rate Systolic blood pressure Diastolic blood pressure Provider Name and Address Organization Details Last Updated DateTime 98.2 [degF] 93 % 93 % 18 /min 92 /min 110 mm[Hg] 64 mm[Hg] Not Available [facility] 13:01:52 Social History Question Answer Notes LastModified by Organizat ion Details LastModified Time Tobacco Smoking Status Current Some Day Smoker Sara Childs NP [address] [place], [address], [place] - [facility] 12/16/2021 13:04:29 Do You Have An Advance Directive? No [facility] Information not available 12/16/2021 What Is Your Level Of Alcohol Consumption? None [facility] available 12/16/2021 What Is Your Code Status? Full Code [employer] Information not available 12/16/2021 Which Illicit Or Recreational Drugs Have You Used? Medical Marijuana Card [facility] Information not available 12/16/2021 Within The Past 12 Months, Has It Happened That The Food You Bought Just Didn't Last And You Didn't Have Money To Get More. No [employer] Information not available 12/16/2021 Within The Past 12 Months, Have You Worried That Your Food Would Run Out Before You Got Money To Buy More. No [employer] Information not available 12/16/2021 Fall Risk: Do You Feel Unsteady When Standing Or Walking? Yes [employer] Information not available 12/16/2021 Excessive Alcohol Or Drug Use No [facility] Information not available 12/16/2021 Does This Patient Have A PCP? Yes [facility] Information not available 12/16/2021 We Know From Many Of Our Patients That Covering All Of Their Costs Can Be Difficult At Times. This Can Cause Stress And Impact Health. In The Past Year, Have You Been Unable To Get Any Of The Following When It Was Really Needed? No [facility] Information not available 12/16/2021 What Is Your Housing Situation Today? I Have Housing [facility] Information not available 12/16/2021 Do You Use Any Illicit Or Recreational Drugs? Yes [facility] Information not available 12/16/2021 How Many Years Have You Smoked Tobacco? 50 [facility] Information not available 12/16/2021 Do You Or Have You Ever Used Any Other Forms Of Tobacco Or Nicotine? No [facility] Information not available 12/16/2021 Sex: Unknown Functional Status None recorded. Mental Status None recorded. Family History Relationship Description Onset Age of this Age Resolved Age Notes LastModified by Organization Details LastModified Time Mother Malignant neoplastic disease [facility] Not available 12/16 13:03:02 Father Chronic obstructive pulmonary disease [facility] Not available 12/16 13:03:29 Medical History Condition Response Coronary Artery Disease N Parkinson's Disease N Depression N COPD Y Hypothyroidism N A-fib N Diabetes N CHF N Cancer N Dementia N Stroke N Asthma N High Cholesterol N Rheumatoid Arthritis N Pulmonary Embolism N Hypertension Y Osteoporosis N Kidney Disease N Past Encounters Encounter ID Performer Location Encounter Start Date Encounter Closed Date Diagnosis/Indication Diagnosis SNOMED-CT Code Diagnosis ICD10 Code [id number] Sara Childs NP [facility] - [address] [place] [address] 12/16/2021 12:52:07 12/21/2021 12:28:42 Suspected COVID-19 423897143 Z20.822 Exposure t o communicable disease 236139083 Z20.822 Chronic ob structive pulmonary disease 93999511 J44.9 Health Concerns Section Related Observation LastModified by Organization Detai ls LastModified Time None Recorded Concern Status LastModified by Organization Details LastModified Time None Recorded Advance Directives Directive N: Payers Encounter Date Sequence Insurance Name Policy Number Policy Martinez Covered Member ID Martinez Member ID Guarantor Name 12/16/2021 1 MEDICARE B-[place]: [facility] Dinh Schulz Sr [id number] Dinh Schulz 12/16/2021 2 [place] [facility] Dinh Schulz [id number] Dinh Schulz Notes Date Note Type Note Provider Name and Address Organization Details Recorded Time 12/16/2021 text/html 66 year old male new to : day 4 of now-improving shortness of breath due to time per pt, no significant relief with inhalers. No chest pain, somewhat non-productive cough. No fever. No known COVID exposure, requesting COVID test in order to attend his pain management apt next Monday. Baseline exertional dyspnea; worse orthopnea. No edema; known history of COPD, still smoking intermittently, not using rescue inhalers. Has had two COVID vaccines Sara Childs NP [address], [place], [address], [place] - [facility] 12/19/2021 09:48:31
== END 2024-10-30 11:15 | disposition home or self-care (01) ==
PROVIDERS: PCP Internal Medicine; Visit Provider Anesthesiology
DX: G56.22 Lesion of ulnar nerve, left upper limb (principal); M50.30 Other cervical disc degeneration, unspecified cervical region; M51.369 Other intervertebral disc degeneration, lumbar region without mention of lumbar back pain or lower extremity pain; G89.4 Chronic pain syndrome; Z79.891 Long term (current) use of opiate analgesic; M54.16 Radiculopathy, lumbar region; M47.816 Spondylosis without myelopathy or radiculopathy, lumbar region; R07.9 Chest pain, unspecified; G47.00 Insomnia, unspecified; G58.8 Other specified mononeuropathies; M54.12 Radiculopathy, cervical region
CPT/HCPCS: 99213

== ENCOUNTER → 2024-10-30 11:01 | Outpatient (BNVA) | payer OTHER, MEDICARE, MEDICAID, SELFPAY | PROVIDERS: PCP Internal Medicine; Visit Provider Anesthesiology | DX: M50.30 Other cervical disc degeneration, unspecified cervical region (principal); M51.369 Other intervertebral disc degeneration, lumbar region without mention of lumbar back pain or lower extremity pain; G89.4 Chronic pain syndrome; M47.26 Other spondylosis with radiculopathy, lumbar region; R07.9 Chest pain, unspecified; G47.00 Insomnia, unspecified; M54.12 Radiculopathy, cervical region; Z51.81 Encounter for therapeutic drug level monitoring; Z79.891 Long term (current) use of opiate analgesic | CPT/HCPCS: 99212 ==

== ENCOUNTER 2024-11-05 06:07 | Outpatient (REF) | payer OTHER, MEDICARE, MEDICAID, SELFPAY | END 2024-11-05 06:08 | disposition home or self-care (01) | LOC: CF 06:07 | PROVIDERS: Visit Provider Anesthesiology | DX: M54.12 Radiculopathy, cervical region (principal); M47.816 Spondylosis without myelopathy or radiculopathy, lumbar region; G89.4 Chronic pain syndrome; M47.812 Spondylosis without myelopathy or radiculopathy, cervical region; M51.369 Other intervertebral disc degeneration, lumbar region without mention of lumbar back pain or lower extremity pain; M50.323 Other cervical disc degeneration at C6-C7 level; M50.30 Other cervical disc degeneration, unspecified cervical region; M54.16 Radiculopathy, lumbar region; R07.9 Chest pain, unspecified; G47.00 Insomnia, unspecified; Z79.891 Long term (current) use of opiate analgesic | CPT/HCPCS: 62321; J1100; J2003; Q9967 ==

== ENCOUNTER 2024-11-05 08:58 | Outpatient (AMB) | payer OTHER, MEDICARE, MEDICAID, SELFPAY ==
[2024-11-05 09:11] VITALS: BP 118/60; PULSE 66; RESP 15; O2SAT 98
--- NOTE | 2024-11-05 09:11 | MHC.OFFVIS ---
Vital Signs 11/05/24 09:11 11/05/24 09:54 BP 118/60 128/66 Blood Pressure Location Lt brachial Lt brachial Position Sitting Sitting Respiration 15 14 Pulse 66 56 Pulse Source Pulse Oximeter Pulse Oximeter Pulse Oximetry (%) 98 97 Oxygen Delivery Method Room Air Room Air Intake Visit Reasons: LEFT C6, C7 PARASAGITTAL RAMY Allergies No Known Allergies Allergy (Verified 11/05/24 09:12) Medication List - Last Reconciled 11/05/24 by Nadia Crum LPN albuterol sulfate 90 mcg/actuation (Ventolin HFA) inhalation aspirin 81 mg PO DAILY atorvastatin mg PO bupropion HCl SR 150 mg PO BID cetirizine 10 mg PO DAILY clotrimazole 1% topical cyanocobalamin (vitamin B-12) 1,000 mcg PO BID duqafqcepwq-ipqlnfagq-ovbygojq 100-62.5-25 mcg (Trelegy Ellipta) inhalation lisinopril 10 mg PO DAILY lisinopril mg PO magnesium oxide 400 mg PO BEDTIME 30 days mirtazapine 7.5 mg PO BEDTIME 30 days naloxone 4 mg/actuation 1 spray intranasal Q3M PRN 1 day nifedipine ER 30 mg PO DAILY nortriptyline mg PO omeprazole mg PO oxycodone 10 mg PO Q4-6H PRN 30 days MDD Five pills a day pregabalin 300 mg PO BID 30 days suvorexant (Belsomra) 20 mg PO BEDTIME 30 days [facility] Medical History (Updated 08/29/24 @ 15:52 by Moiz Morales MD) Chronic pain syndrome Spondylosis of lumbar region without myelopathy or radiculopathy Spondylosis, cervical Degenerative disc disease, lumbar Degenerative disc disease, cervical Depression Essential hypertension Chronic radicular cervical pain Allergic rhinitis Anxiety COPD (chronic obstructive pulmonary disease) Insomnia Hyperlipidemia Erectile dysfunction Surgical History H/O shoulder surgery Family History Maternal Grandfather Diabetes Mother Cancer Brother Bladder cancer Breast CA Sister No problems noted. Social History Alcohol intake: never Patient Tobacco Use Status: Current everyday Tobacco user Tobacco use type: Cigarette Cigarettes Per Day: 5 Second Hand Smoke Exposure: No Substance Use Type: Marijuana Physical Exam Vital Signs: Last Vital Signs Pulse 56 11/05/24 09:54 Resp 14 11/05/24 09:54 BP 128/66 11/05/24 09:54 Pulse Ox 97 11/05/24 09:54 Oxygen Delivery Method Room Air 11/05/24 09:54 Assessment & Plan Assessment & Plan (1) Cubital tunnel syndrome on left: Code(s): G56.22 - Lesion of ulnar nerve, left upper limb Category: Medical (2) Degenerative disc disease, cervical: Code(s): M50.30 - Other cervical disc degeneration, unspecified cervical region Category: Medical (3) Degenerative disc disease, lumbar: Code(s): M51.36 - Other intervertebral disc degeneration, lumbar region Category: Medical (4) Chronic pain syndrome: Code(s): G89.4 - Chronic pain syndrome Category: Medical (5) Opiate analgesic contract exists: Code(s): Z79.891 - intermediate frame tender (current) use of opiate analgesic Category: Medical (6) Lumbar radiculopathy: Code(s): M54.16 - Radiculopathy, lumbar region Category: Medical (7) Lumbar spondylosis: Code(s): M47.816 - Spondylosis without myelopathy or radiculopathy, lumbar region Category: Medical (8) Right-sided chest pain: Code(s): R07.9 - Chest pain, unspecified Category: Medical (9) Insomnia: Code(s): G47.00 - Insomnia, unspecified Category: Medical (10) Intercostal neuralgia: Code(s): G58.8 - Other specified mononeuropathies Category: Medical (11) Cervical radiculopathy: Code(s): M54.12 - Radiculopathy, cervical region Category: Medical Plan Interlaminar C6-C7 epidural steroid injection more to the left. Informed consent was obtained delineating name and date of of the patient side and site of the procedure nature of the procedure. Risks and benefits were explained as bleeding infection peripheral nerve damage spinal cord damage headache and other undisclosed risks. Patient agreed to go for the procedure. Patient came to the operating room and he was positioned prone on operating table with a pillow under the chest. The the upper back in posterior neck of the patient's were prepped with ChloraPrep and draped with sterile utility self adhesive towels. C-arm was brought over the operating field and sq picture of C6 and C7 vertebra were demonstrated on the screen. Projection of the left lamina of C7 was chosen as the start of the injection. The projection of the left lamina of C7 very close to the spinous process to the skin was injected with lidocaine 2%. After that 20 gauge Touhy needle was inserted through the skin and advanced to were the C5-C6 epidural space on anterior posterior, contralateral oblique and lateral views. When on lateral view the needle went 2mm beyond interlaminar line injection of the contrast was performed demonstrating epidural spread of the contrast. After the treatment solution of the normal saline preservative-free 4 mLs mixed with Decadron 10 mg with trace amount of preservative-free lidocaine was injected into the needle. The needle was withdrawn sterile Band-Aid was applied. Orders: Orders FL guidance in treatment room Today M54.12 - Radiculopathy, cervical region Coding Level of Care Code Procedure Only Diagnoses Cubital tunnel syndrome on left G56.22 Degenerative disc disease, cervical M50.30 Degenerative disc disease, lumbar M51.36 Chronic pain syndrome G89.4 Opiate analgesic contract exists Z79.891 Lumbar radiculopathy M54.16 Lumbar spondylosis M47.816 Right-sided chest pain R07.9 Insomnia G47.00 Intercostal neuralgia G58.8 Cervical radiculopathy M54.12
[2024-11-05 09:54] VITALS: BP 128/66; PULSE 56; RESP 14; O2SAT 97
== END 2024-11-05 09:55 | disposition home or self-care (01) ==
LOC: HO.PMCPRC 08:58
PROVIDERS: PCP Internal Medicine; Visit Provider Anesthesiology
DX: M54.12 Radiculopathy, cervical region (principal)
CPT/HCPCS: 62321

== ENCOUNTER 2024-12-02 11:02 | Outpatient (AMB) | payer MEDICARE, MEDICAID, SELFPAY ==
--- NOTE | 2024-12-02 11:26 | MHC.OFFVIS ---
Vital Signs 12/02/24 11:27 Height 5 ft 4 in Weight 172 lb BMI 29.5 BP 138/69 Blood Pressure Location Lt brachial Position Sitting Pulse 89 Pulse Oximetry (%) 96 Oxygen Delivery Method Room Air Intake Visit Reasons: Pill Count/LEFT C6, C7 PARASAGITTAL RAMY Allergies No Known Allergies Allergy (Verified 12/02/24 11:26) Medication List - Last Reconciled 12/02/24 by Barbra Narayan, ELASTIC YARN TWISTER HELPER albuterol sulfate 90 mcg/actuation (Ventolin HFA) inhalation aspirin 81 mg PO DAILY atorvastatin mg PO bupropion HCl SR 150 mg PO BID cetirizine 10 mg PO DAILY clotrimazole 1% topical cyanocobalamin (vitamin B-12) 1,000 mcg PO BID zwcondiwvfl-wiyscwrnp-szjsrwrg 100-62.5-25 mcg (Trelegy Ellipta) inhalation lisinopril 10 mg PO DAILY lisinopril mg PO magnesium oxide 400 mg PO BEDTIME 30 days mirtazapine 7.5 mg PO BEDTIME 30 days naloxone 4 mg/actuation 1 spray intranasal Q3M PRN 1 day nifedipine ER 30 mg PO DAILY nortriptyline mg PO omeprazole mg PO oxycodone 10 mg PO Q4-6H PRN 30 days MDD Five pills a day pregabalin 300 mg PO BID 30 days suvorexant (Belsomra) 20 mg PO BEDTIME 30 days HPI Comments Details: Dinh presents to the office for follow up chronic pain and chronic opioid therapy management. He went for epidural steroid injection on 11/05/2024 and he reported today improved mobility, improved activities of daily living and decreased pain in the cervical spine. This is reflected on his pill count: His supposed to bring 70 pills in his possession. He presented today with 89 pills in his possession. He denies complications of the opioid medications he denies side effects. He denies constipation. He also taking pregabalin which helps him to have a good night's sleep. It also helps his pain in the morning after the night's sleep. He was given today the urine drug screen he reports the last medication he took with it 09:00 today. PRIOR: diagnostic bilateral L3- L4- L5 MBB performed on 05/16/23. He reports no pain improvement whatsoever. pain after the procedure remained in the range 8/10 to 9.5/10. SCS nevro trial was discussed with the patient. He reports that his son has computer at home and will be able to help him with the psychological evaluation. After that we will schedule him for a trial. ?He has severe lumbar stenosis.? I recommended him to go back to a neurosurgeon to discuss his spinal stenosis.? However patient adamantly refused to go for consultation with a neurosurgeon.? 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 At multiple intervertebral interval he has ligamentum flavum hypertrophy which could be addressed with MILD procedure. complains on severe pain in neck and severe pain in the back.? He reports pain in the neck radiates into the right upper extremity and pain in the back is not radiating.? He relates his pain to the injuries he sustained while in accident on 09/05. he fell from garbage truck an fell on his back.? About 2 years ago he was on oxycodone about 120 mg a day and the he was more active and able to walk better.? He reports that he had multiple chiropractic manipulations and physical therapy in the past to alleviate his pain and those were not effective, he has home traction unit but it does not alleviate his pain. He takes Lyrica meloxicam Cymbalta phentermine and amitriptyline to help him to sleep at night. He never had surgery on his back although on MRI from 2010 he had severe foraminal stenosis at C4-C5 level and mild central cord compression.? He refuses surgery.? He told me that the surgeries something he would never except for himself.? He received 1 injection of unknown kind in his lumbar spine but never in injection in his cervical spine. [facility] Medical History (Updated 08/29/24 @ 15:52 by Moiz Morales MD) Chronic pain syndrome Spondylosis of lumbar region without myelopathy or radiculopathy Spondylosis, cervical Degenerative disc disease, lumbar Degenerative disc disease, cervical Depression Essential hypertension Chronic radicular cervical pain Allergic rhinitis Anxiety COPD (chronic obstructive pulmonary disease) Insomnia Hyperlipidemia Erectile dysfunction Surgical History H/O shoulder surgery Family History Maternal Grandfather Diabetes Mother Cancer Brother Bladder cancer Breast CA Sister No problems noted. Social History Alcohol intake: never Patient Tobacco Use Status: Current everyday Tobacco user Tobacco use type: Cigarette Cigarettes Per Day: 5 Second Hand Smoke Exposure: No Substance Use Type: Marijuana Review of Systems Const All systems reviewed & are unremarkable except as noted in HPI and below Physical Exam Vital Signs: Last Vital Signs Pulse 89 12/02/24 11:27 BP 138/69 12/02/24 11:27 Pulse Ox 96 12/02/24 11:27 Oxygen Delivery Method Room Air 12/02/24 11:27 BMI result Body Mass Index 29.5 Const General: in distress severe; No comfortable Resp Effort & Inspection: normal respiratory effort and able to speak in complete sentences Cardio Jugular venous distension: no JVD Back/Spine/Pelvis Other: Loading test is positive bilaterally, tenderness of palpation on paraspinal spinal region lumbar spine Cervical Spine: No cervical ROM normal Thoracic/Lumbar Spine: thoracic and lumbar spine normal to inspection, pain with thoraco-lumbar ROM and thoraco-lumbar ROM limited Extrem Other: Limited mobility of the left upper extremity in the elbow. Severe tenderness on palpation in projection of the medial elbow with pain radiating down to the medial surface of the forearm and into the 5th finger on the left. Psych Appearance: grossly normal Mental Status: mental status grossly normal Speech and movement: Normal speech and movement present Affect: normal affect Attitude: cooperative Thought process: Normal thought process present Thought content: Normal thought content present Insight: Good insight present (Psych) Judgement: Good judgement present (Psych) Results Reviewed Results Reviewed: MRI cervical spine 08/21/2024. Findings: The visualized portion of the brain and skull base are normal. Unremarkable paraspinal soft tissues. No concerning marrow infiltrative lesions. Scattered Modic endplate changes most prominent C5-C6. The cord is normal in caliber. No cord signal abnormality. Cervical disc levels: C2-C3: Slight anterolisthesis. Mild endplate irregularity. Severe left and mild right facet arthropathy. Severe left and mild right foraminal stenosis. No significant spinal stenosis. C3-C4: Slight anterolisthesis. Mild endplate irregularity. Small anterior endplate osteophytes. Moderate left uncovertebral spurs. Moderate left and mild right facet arthropathy. No spinal stenosis. Severe left foraminal stenosis. C4-C5: Moderate risk disc space height loss and endplate irregularity. Moderate anterior endplate osteophytes. Moderate bilateral uncovertebral spurs and moderate left central focal protrusion. The protrusion indent the cord and in combination with mild posterior ligamentous hypertrophy results in moderate spinal stenosis. Mild bilateral facet arthropathy. Severe bilateral foraminal stenosis. C5-C6: Moderate disc space height loss severe endplate irregularity. Moderate bilateral uncovertebral spurs. Prominent right central disc osteophyte complex and might posterior ligamentum flavum hypertrophy resulting in moderate severe spinal stenosis. Minimal bilateral facet arthropathy. Moderate left and severe right foraminal stenosis. C6-C7: Moderate disc space height and lost and endplate irregularity. Moderate bilateral uncovertebral spurs. No spinal stenosis. Moderate bilateral foraminal stenosis. C7-T1 moderate disc space height loss and endplate irregularity. Small bilateral intervertebral spurs. Mild bilateral facet arthropathy. Moderate right greater than left foraminal stenosis. MRI of the lumbar spine 08/21/2024. Findings: There is mild S shaped lumbar scoliosis. Moderate Baastrup changes. No compression deformity or concerning marrow infiltrative lesions. Prominent Modic endplate changes at L1-L2. Mild paraspinal muscular atrophy. Otherwise unremarkable paraspinal soft tissues. Lumbar disc levels: L1-L2: Severe disc space height loss and endplate irregularity with Modic endplate changes. Small symmetric disc osteophyte complex and minimal bilateral facet arthropathy. Mild spinal stenosis. Mild left greater than right foraminal stenosis. L2-L3 mild disc space height loss and endplate irregularity. Mild symmetric disc bulge with small endplate osteophytes and minimal degenerative changes of the facet joints. Mild bilateral ligamentum flavum hypertrophy. Mild spinal stenosis with mild right and minimal left lateral recess stenosis. Mild left foraminal stenosis. L3-L4 mild endplate irregularity. Small symmetric disc bulge and mild bilateral facet arthropathy. Mild bilateral ligamentum flavum hypertrophy. [id number] right greater than left foraminal stenosis. Mild spinal stenosis with mild right lateral recess stenosis. Mild left and moderate right foraminal stenosis. L4-5: Mild endplate irregularity. Slight anterolisthesis. Mild symmetric disc bulge. Left greater than right ligamentum flavum hypertrophy with widening of the left facet joint, suggesting facet joint hypertrophy. Moderate bilateral facet arthropathy. Moderate spinal stenosis. Moderate greater right than left foraminal stenosis. L5-S1: Moderate severe disc height loss and moderate endplate irregularity with small disc osteophyte complex eccentric to the right. There is a small amount of superiorly extruded disc material in the right foraminal zone which contacts the exiting L5 nerve root. This in combination with mild hypertrophic degenerative changes of the facet joints results in moderate right foraminal stenosis. There is mild left facet arthropathy with moderate left foraminal stenosis. Moderate spinal stenosis. Assessment & Plan Assessment & Plan (1) Cubital tunnel syndrome on left: Code(s): G56.22 - Lesion of ulnar nerve, left upper limb Category: Medical (2) Degenerative disc disease, cervical: Code(s): M50.30 - Other cervical disc degeneration, unspecified cervical region Category: Medical (3) Degenerative disc disease, lumbar: Code(s): M51.36 - Other intervertebral disc degeneration, lumbar region Category: Medical (4) Chronic pain syndrome: Code(s): G89.4 - Chronic pain syndrome Category: Medical (5) Opiate analgesic contract exists: Code(s): Z79.891 - care home (current) use of opiate analgesic Category: Medical (6) Lumbar radiculopathy: Code(s): M54.16 - Radiculopathy, lumbar region Category: Medical (7) Lumbar spondylosis: Code(s): M47.816 - Spondylosis without myelopathy or radiculopathy, lumbar region Category: Medical (8) Right-sided chest pain: Code(s): R07.9 - Chest pain, unspecified Category: Medical (9) Insomnia: Code(s): G47.00 - Insomnia, unspecified Category: Medical (10) Intercostal neuralgia: Code(s): G58.8 - Other specified mononeuropathies Category: Medical (11) Cervical radiculopathy: Code(s): M54.12 - Radiculopathy, cervical region Category: Medical Plan The patient came today for the pill count his pill count is correct. He demonstrates responsible attitude to opioid medications. After injection he consumes lot less of opioid medications than it was before. See the pill count as above. He will be prescribed oxycodone 10 mg 5 times a day for next month starting from 12/16/2024. Good results interlaminar epidural injection C6-C7 which is reflected in his pill count see as above. Medications: Refilled oxycodone Partial Fill upon patient request. 10 mg PO Q4-6H PRN 150 tabs 0RF pain 30 days MDD Five pills a day G89.4 - Chronic pain syndrome, M50.30 - Other cervical disc degeneration, unspecified cervical region, M51.36 - Other intervertebral disc degeneration, lumbar region, Z79.891 - intermission coordinator (current) use of opiate analgesic Coding Level of Care Code Est Pt Level 3 (97514) Diagnoses Cubital tunnel syndrome on left G56.22 Degenerative disc disease, cervical M50.30 Degenerative disc disease, lumbar M51.36 Chronic pain syndrome G89.4 Opiate analgesic contract exists Z79.891 Lumbar radiculopathy M54.16 Lumbar spondylosis M47.816 Right-sided chest pain R07.9 Insomnia G47.00 Intercostal neuralgia G58.8 Cervical radiculopathy M54.12
[2024-12-02 11:27] VITALS: BP 138/69; PULSE 89; O2SAT 96; BMI 29.5
== END 2024-12-02 11:30 | disposition home or self-care (01) ==
PROVIDERS: PCP Internal Medicine; Visit Provider Anesthesiology
DX: G56.22 Lesion of ulnar nerve, left upper limb (principal); M50.30 Other cervical disc degeneration, unspecified cervical region; M51.369 Other intervertebral disc degeneration, lumbar region without mention of lumbar back pain or lower extremity pain; G89.4 Chronic pain syndrome; Z79.891 Long term (current) use of opiate analgesic; M54.16 Radiculopathy, lumbar region; M47.816 Spondylosis without myelopathy or radiculopathy, lumbar region; R07.9 Chest pain, unspecified; G47.00 Insomnia, unspecified; G58.8 Other specified mononeuropathies; M54.12 Radiculopathy, cervical region
CPT/HCPCS: 99213

== ENCOUNTER → 2024-12-02 11:02 | Outpatient (BNVA) | payer OTHER, MEDICARE, MEDICAID, SELFPAY | PROVIDERS: PCP Internal Medicine; Visit Provider Anesthesiology | DX: G89.4 Chronic pain syndrome (principal); G56.22 Lesion of ulnar nerve, left upper limb; M50.30 Other cervical disc degeneration, unspecified cervical region; M51.369 Other intervertebral disc degeneration, lumbar region without mention of lumbar back pain or lower extremity pain; M47.26 Other spondylosis with radiculopathy, lumbar region; R07.9 Chest pain, unspecified; G47.00 Insomnia, unspecified; G58.8 Other specified mononeuropathies; M54.12 Radiculopathy, cervical region; Z79.891 Long term (current) use of opiate analgesic | CPT/HCPCS: 99212 ==

== ENCOUNTER → 2024-12-30 11:13 | Outpatient (BNVA) | payer OTHER, MEDICARE, MEDICAID, SELFPAY | PROVIDERS: PCP Internal Medicine; Visit Provider Anesthesiology | DX: G56.22 Lesion of ulnar nerve, left upper limb (principal); M50.30 Other cervical disc degeneration, unspecified cervical region; M51.369 Other intervertebral disc degeneration, lumbar region without mention of lumbar back pain or lower extremity pain; G89.4 Chronic pain syndrome; M47.26 Other spondylosis with radiculopathy, lumbar region; R07.9 Chest pain, unspecified; G47.00 Insomnia, unspecified; G58.8 Other specified mononeuropathies; M54.12 Radiculopathy, cervical region; Z79.891 Long term (current) use of opiate analgesic | CPT/HCPCS: 99212 ==

== ENCOUNTER 2025-01-27 11:34 | Outpatient (AMB) | payer OTHER, MEDICARE, MEDICAID, SELFPAY ==
[2025-01-27 11:36] VITALS: BP 157/76; PULSE 88; O2SAT 97; BMI 30.2
--- NOTE | 2025-01-27 11:36 | A.OFFVIS_ITS ---
Vital Signs 01/27/25 11:36 Height 5 ft 4 in Weight 176 lb 2 oz BMI 30.2 BP 157/76 H Blood Pressure Location Rt brachial Position Sitting Pulse 88 Pulse Source Doppler Pulse Oximetry (%) 97 Oxygen Delivery Method Room Air Intake Visit Reasons: Pill Count Allergies No Known Allergies Allergy (Verified 01/27/25 11:39) HPI Comments Details: Dinh presents to the office for follow up chronic pain and chronic opioid therapy management. Epidural steroid injection cervical spine 11/05/2024 -excellent results. now patient is interested in injections in the lumbar spine. He wants to perform his lumbar spine injections sometime in May. I told him to address this issue at the next appointment with me. We will discuss at that time the injections with the patient. Today pill count is correct he presented with 94 pills in his possession. His supposed to have only 90 pills in his possession. It demonstrates better pain control. It also demonstrates responsible attitude to were the opioid medications. I will renew his medications on 02/13/2025. PRIOR: diagnostic bilateral L3- L4- L5 MBB performed on 05/16/23. He reports no pain improvement whatsoever. pain after the procedure remained in the range 8/10 to 9.5/10. SCS nevro trial was discussed with the patient. He reports that his son has computer at home and will be able to help him with the psychological evaluation. After that we will schedule him for a trial. ?He has severe lumbar stenosis.? I recommended him to go back to a neurosurgeon to discuss his spinal stenosis.? However patient adamantly refused to go for consultation with a neurosurgeon.? 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 At multiple intervertebral interval he has ligamentum flavum hypertrophy which could be addressed with MILD procedure. complains on severe pain in neck and severe pain in the back.? He reports pain in the neck radiates into the right upper extremity and pain in the back is not radiating.? He relates his pain to the injuries he sustained while in accident on 09/05. he fell from garbage truck an fell on his back.? About 2 years ago he was on oxycodone about 120 mg a day and the he was more active and able to walk better.? He reports that he had multiple chiropractic manipulations and physical therapy in the past to alleviate his pain and those were not effective, he has home traction unit but it does not alleviate his pain. He takes Lyrica meloxicam Cymbalta phentermine and amitriptyline to help him to sleep at night. [facility] Medical History (Updated 08/29/24 @ 15:52 by Moiz Morales MD) Chronic pain syndrome Spondylosis of lumbar region without myelopathy or radiculopathy Spondylosis, cervical Degenerative disc disease, lumbar Degenerative disc disease, cervical Depression Essential hypertension Chronic radicular cervical pain Allergic rhinitis Anxiety COPD (chronic obstructive pulmonary disease) Insomnia Hyperlipidemia Erectile dysfunction Surgical History H/O shoulder surgery Family History Maternal Grandfather Diabetes Mother Cancer Brother Bladder cancer Breast CA Sister No problems noted. Social History Alcohol intake: never Patient Tobacco Use Status: Current everyday Tobacco user Tobacco use type: Cigarette Cigarettes Per Day: 5 Second Hand Smoke Exposure: No Substance Use Type: Marijuana Review of Systems Const All systems reviewed & are unremarkable except as noted in HPI and below Physical Exam Vital Signs: Last Vital Signs Pulse 88 01/27/25 11:36 BP 157/76 H 01/27/25 11:36 Pulse Ox 97 01/27/25 11:36 Oxygen Delivery Method Room Air 01/27/25 11:36 BMI result Body Mass Index 30.2 Const General: in distress severe; No comfortable Resp Effort & Inspection: normal respiratory effort and able to speak in complete sentences Cardio Jugular venous distension: no JVD Back/Spine/Pelvis Other: Loading test is positive bilaterally, tenderness of palpation on paraspinal spinal region lumbar spine Cervical Spine: No cervical ROM normal Thoracic/Lumbar Spine: thoracic and lumbar spine normal to inspection, pain with thoraco-lumbar ROM and thoraco-lumbar ROM limited Extrem Other: Limited mobility of the left upper extremity in the elbow. Severe tenderness on palpation in projection of the medial elbow with pain radiating down to the medial surface of the forearm and into the 5th finger on the left. Psych Appearance: grossly normal Mental Status: mental status grossly normal Speech and movement: Normal speech and movement present Affect: normal affect Attitude: cooperative Thought process: Normal thought process present Thought content: Normal thought content present Insight: Good insight present (Psych) Judgement: Good judgement present (Psych) Assessment & Plan Assessment & Plan (1) Cubital tunnel syndrome on left: Code(s): G56.22 - Lesion of ulnar nerve, left upper limb Category: Medical (2) Degenerative disc disease, cervical: Code(s): M50.30 - Other cervical disc degeneration, unspecified cervical region Category: Medical (3) Degenerative disc disease, lumbar: Code(s): M51.36 - Other intervertebral disc degeneration, lumbar region Category: Medical (4) Chronic pain syndrome: Code(s): G89.4 - Chronic pain syndrome Category: Medical (5) Opiate analgesic contract exists: Code(s): Z79.891 - 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 (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) use of opiate analgesic Category: Medical (6) Lumbar radiculopathy: Code(s): M54.16 - Radiculopathy, lumbar region Category: Medical (7) Lumbar spondylosis: Code(s): M47.816 - Spondylosis without myelopathy or radiculopathy, lumbar region Category: Medical (8) Right-sided chest pain: Code(s): R07.9 - Chest pain, unspecified Category: Medical (9) Insomnia: Code(s): G47.00 - Insomnia, unspecified Category: Medical (10) Intercostal neuralgia: Code(s): G58.8 - Other specified mononeuropathies Category: Medical (11) Cervical radiculopathy: Code(s): M54.12 - Radiculopathy, cervical region Category: Medical Plan The patient came today for the pill count his pill count is correct. He demonstrates responsible attitude to opioid medications. Cervical interlaminar C6-C7 epidural steroid injection resulted in good pain control. He complains today mostly on the pain in the lower back. He has pain in the lower back did not respond to medial branch blocks. Nevro SCS was discussed. He needs to go to psychological evaluation to be eligible for Nevro SCS. Her new prescription will be sent to be filled on 02/13/2025. He will be prescribed oxycodone 10 mg 5 times a day for next month. Medications: Refilled oxycodone Partial Fill upon patient request. 

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
--- OUTSIDE RECORDS SUMMARY | 2025-01-27 13:48 | XMS_ITS | Encounter Summary ---
Author Organization [facility] Address [address] [place] [address] Care Team Providers Care Revenue Collector Name Role Phone Marc Taylor MD Primary Care Provider [phone] Encounter Details Date Type Department Care Team (Late Contact Info) Description 12/26/2024 Telephone Internal Medicine [facility] [address] [phone] Marc Taylor MD [address] [address] Social History Tobacco Use Types Packs/Day Years Used Date Smoking Tobacco: Every Day Smokeless Tobacco: Never Comments:Pt states quit smok ing 5 mth ago. Alcohol Use Standard Drinks/Week Comments Yes 0 (1 standard drink = 0.6 oz pur e alcohol) Sex and Gender Information Value Date Recorded Sex Assigned at Not on file Legal Sex Male 12:36 PM EST Gender Identity Not on file Sexual Orientation Not on file documented as of this encounter Plan of Treatment Upcoming Encounters Date Type Department Care Team (Late Contact Info) Description 02/05/2025 9:30 AM EDT Appointment [facility] CT Scan [address] [place] [phone] 03/18/2025 11:15 AM EDT Office Visit Internal Medicine [facility] [address] [phone] Marc Taylor MD [address] [address] 05/15/2025 10:45 AM EDT Office Visit Pulmonolgy - [place] [address] [phone] Abelardo Conteh MD [address] [phone] documented as of this encounter Visit Diagnoses Not on filedocumented in this encounter Care Teams Revenue Collector Relationship Specialty Start Date End Date Marc Taylor MD PCP - General Internal Medicine 12/04/18 documented as of this encounter
--- OUTSIDE RECORDS SUMMARY | 2025-01-27 13:48 | XMS_ITS | Clinical Summary ---
Author Organization [facility] Address [address] [address] Phone Care Team Providers Care Desizing Machine Operator Name Role Phone Marc Taylor MD Primary Care Provider [phone] Allergies No known active allergies Medications atorvastatin (LIPITOR) 40 MG tablet Take 1 tablet by mouth 1 (one) time each day 3 Active cetirizine (ZyrTEC) 10 MG tablet Take 1 tablet by mouth 1 (one) time each day 3 Active magnesium oxide 400 (240 Mg) MG tablet Take 1 tablet by mouth 1 (one) time each day 4 Active oxyCODONE (ROXICODONE) 10 MG immediate release tablet Take 10 mg by mouth every 6 (six) hours if needed 3 Active pregabalin (LYRICA) 100 MG capsule Take 300 mg by mouth at bed time 4 Active albuterol HFA (PROVENTIL HFA;VENTOLIN HFA) 108 (90 Base) MCG/ACT inhaler INHALE 2 PUFFS INTO THE LUNGS 4 TIMES DAILY NEEDED FOR WHEEZING OR SHORTNESS OF BREATH. 4 Active Trelegy Ellipta 100-62.5-25 MCG/ACT aerosol powder INHALE 1 DOSE DAILY 4 Active NIFEdipine XL (PROCARDIA XL) 30 MG 24 hr tablet TAKE 1 TABLET (30 MG TOTAL) BY MOUTH 1 (ONE) TIME EACH DAY DO NOT CRUSH, CHEW, OR SPLIT. 90 tablet 3 5 12/09/19 26 Active Active Problems Problem Noted Date Diagnosed Date Stage 3a chronic kidney disease 11/22/2024 Benign essential hypertension 06/02/2008 Resolved Problems Problem Noted Date Diagnosed Date Resolved Date Hiatal hernia with gastroesophageal reflux 05/26/2022 12/15/2023 Presbyesophagus 05/26/2022 12/15/2023 Erectile dysfunction 06/26/2018 024 Hyperlipidemia 06/26/2018 12/15/2023 Insomnia 12/18/2017 12/15/2023 Chronic obstructive pulmonary disease 12/13/2017 12/15/2023 Allergic rhinitis 09/22/2017 12/15/2023 Anxiety 09/22/2017 12/15/2023 Cervical radiculopathy 06/02/200812/15 Overview (12/15/2023): S/p MRI x 2 , s/p N-S appts. Radiates into rt. Arm, narcotics since 1999 Depressive disorder 06/02/2008 12/15/19 24 Overview (12/15/2023): Sees Dr. Moreno Nugent florence Encounters Date Type Department Care Team Description 12/09/2024 Refill [facility] [address] [facility] [address] [place] [address] Terell Minor MD 11/22/2024 11:00 AM EST Office Visit [facility] [address] [facility] [address] [place] [address] Terell Minor MD Stage 3a chronic kidney disease (HCC) (Primary Dx); Benign essential hypertension 11/07/2024 Orders Only [facility] [address] [place] [address] [place] [address] Terell Minor MD Benign essential hypertension from Last 3 Months Immunizations Name Administration Dates Next Due Influenza Split High Dose Preservative Free IM 1 12/13/2021,08/19/2021 Influenza Whole 12/10/2012 Influenza, Trivalent, Adjuvanted 10/13/2022,07/29 Pneumococcal Conjugate 13-Valent 10/13/2022 Pneumococcal Polysaccharide 05/04/2012 Tdap 09/10/2009,08/02/2008 Family History Medical History Relation Comments Cancer Brother Cancer Mother Cancer Sister Relation Status Comments Brother Mother Sister Social History Tobacco Use Types Packs/Day Years Used Date Smoking Tobacco: Every Day Cigarettes Passive Smoke Exposure: Never Smokeless Tobacco: Never Tobacco Cessation:Ready to Q uit: No; Counseling Given: No Alcohol Use Standard Drinks/Week Comments Never 0 (1 standard drink = 0.6 oz pur e alcohol) Sex and Gender Information Value Date Recorded Sex Assigned at Not on file Legal Sex Male 11:20 AM EST Gender Identity Not on file Sexual Orientation Not on file Last Filed Vital Signs Vital Sign Reading Time Taken Comments Blood Pressure 116/67 11/22/2024 11:16 AM EST Pulse 59 11/22/2024 11:16 AM EST Temperature - - Respiratory Rate - - Oxygen Saturation 98% 11/22/2024 11:16 AM EST Inhaled Oxygen Concentration - - Weight 76.8 kg (169 lb 6.4 oz) 11/22/2024 11:16 AM EST Height - - Body Mass Index - - Plan of Treatment Upcoming Encounters Date Type Department Care Team (Late st Contact Info) Description 08/25/2025 11:00 AM EDT Office Visit [facility] [address] [phone] Olive Bennett ARNP [address] [phone] Health Maintenance Due Date Last Done Comments Colorectal Cancer Screening: Annual FOBT 2003 Colorectal Cancer Screening: Colonoscopy 2003 Colorectal Cancer Screening: Sigmoidoscopy 2003 Pneumococcal Vaccine: 65+ Years (3 of 3 - PPSV23 or PCV20) 12/08/2022 10/13/2022, 05/04/2012 Influenza Vaccine (#1) 2024 2, 10/13/2022, 08/19/2021, Additional history exists Hepatitis B Vaccine Aged Out No longe r eligible based on patient's age to complete this topic Insurance [place] Care Teams Desizing Machine Operator Relationship Specialty Start Date End Date Marc Taylor MD [address] [place] [address] PCP - General Internal Medicine 12/15/23
--- OUTSIDE RECORDS SUMMARY | 2025-01-27 13:49 | XMS_ITS | Encounter Summary ---
Author Organization [facility] Address [address] [place] [address] Care Team Providers Care Launch Check Out Name Role Phone Marc Taylor MD Primary Care Provider [phone] Reason for Visit * Reason Onset Date Comments Appointment 01/24/2025 1Notifications Encounter Details Date Type Department Care Team ([facility] st Contact Info) Description 01/24/2025 Telephone Lung Screening Program - [address] [place] [phone] Chasidy Em MA Appointment (1Notifications) Social History Tobacco Use Types Packs/Day Years [...] on file documented as of this encounter Progress Notes * Chasidy Em MA - 01/24/2025 2:35 PM EST Dinh J Jazz was contacted by the Lung Cancer Screening Program today to confirm the appointmentof their Lung Cancer Screening. The patient is currently scheduled to have their screening on Friday february 14, 2025 at 930 AM, at [facility].No answer mail box Unvailable For all screenings scheduled during the week, the patient will check in at Patient Registration on the first floor of the main hospital. For screenings that take place on the weekend or after 5pm, check-in directly in Radiology. The patient was given the Lung Cancer Screening Program phone number, , to contact if they have any additional questions, concerns or need to reschedule. Patients are encouraged to call our office and reschedule if they are exhibiting any cold-like symptoms, have recently been treated for Pneumonia or Influenza (the flu) or have had another CT of their Chest since their last screening. documented in this encounter Plan of Treatment Upcoming Encounters Date Type Department Care Team (Late st Contact Info) Description 02/05/2025 9:30 AM EDT Appointment [facility] CT Scan [address] [place] [address] 03/18/2025 11:15 AM EDT Office Visit Internal Medicine - [place] [address] [phone] Marc Taylor MD [address] [address] 05/15/2025 10:45 AM EDT Office Visit Pulmonol[facility] [address] [address] Abelardo Conteh MD [address] [address] documented as of this encounter Visit Diagnoses Not on filedocumented in this encounter Care Teams Launch Check Out Relationship Specialty Start Date End Date Marc Taylor MD PCP - General Internal Medicine 12/04/18 documented as of this encounter
--- OUTSIDE RECORDS SUMMARY | 2025-01-27 13:49 | XMS_ITS | Data Portability ---
Author Organization [place] [facility] Address [address] [place] [address] Care Team Providers Care Director Of Patient Safety Name Role Phone DESHAWN GARCIA Primary Care [...] after care of this patient according to [facility]'s infection prevention protocols. Time On Scene with Patient: 01:08:28 soraida Not available 12/19/2021 09:48:20 Plan of Treatment Reminders Order Date Submit Date Provider Last Modified By Organization Details Last Modified Time Details Appointments None recorded. Lab unlisted lab - covid-19 (novel coronaviru s) PCR 2021 022 [email or web address] [facility] (Centralized Electronic Ordering - All Locations), Patient Can Go To The Location Of Their Choice, [id number] 12:39:52 Referral None recorded. Procedures None recorded. Surgeries None recorded. Imaging None recorded. Medication Orders None recorded. Patient TargetsNo targets recorded. Patient Instructions Encounter Date Encounter Id Patient Instructions Last Modified By Organization Details Last Modified Time 12/16/2021 [id number] You were seen today for a 4 [...] breath, cough, fever or additional symptoms. Call [phone] if you need to access your COVID results. soraida Not available 12/16/2021 13:50:50 Reason for Referral None Reported. Results Created Date Observation Date Name Description Value Unit Range Abnormal Flag Note LastModifiedBy Organization Detail LastModifiedTime 12/16/19 22 12/20/20212018 NOVEL CORON AVIRU S, PCR covid-19, PCR [...] Disea se Contr ol and preve ntion ([facility]) pre depar ture and arriv al requi [...] ency, [facility] is accep brian [place] es from appro priat e clini kristina [...] ional clini kristina monit oring , inclu ding colle ction of an addit ional speci men. = Addit ional infor matio n about COVID -19 can be found at the [employer] websi te: [email or web address] uestD [email or web address] Trendabl .com/ Covid 19. Test Perfo rmed by: [employer], [address] [place]. [address] . Labor atory Dire tor: Jerome gomez MD. Not Available [facility] (Centralized Electronic Ordering - All Locations) Patient Can Go To The Location Of Their Choice, [id number] 12/20/2021 07:34:11 Result Notes None recorded. Procedures Surgical History Date Name Laterality Status Provider Name and Address Organization Details Recorded Time repair of perforated colon completed Sara Childs NP [address], [place], [address], [place] [facility] 12/16/2021 13:10:48 Imaging Results None recorded. Procedure [...] Smoking Status Current Some Day Smoker Sara Childs, SE[facility] [address] [place], [address], [place] [facility] 12/16/2021 13:04:29 Do You Have An Advance Directive? No [facility] Information not available 12/16/2021 What Is Your Level Of Alcohol Consumption? None [facility] Information not available 12/16/2021 What Is Your Code Status? Full Code Information not available 12/16/2021 Which Illicit Or Recreational Drugs Have You Used? Medical Marijuana Card Information not available 12/16/2021 Within The Past 12 Months, Has It Happened That The Food You Bought Just Didn't Last And You Didn't Have Money To Get More. No [facility] Information not available 12/16/2021 Within The Past 12 Months, Have You Worried That Your Food Would Run Out Before You Got Money To Buy More. No [facility] Information not available 12/16/2021 Fall Risk: Do You Feel Unsteady When Standing Or Walking? Yes Information not available 12/16/2021 Excessive Alcohol Or Drug Use No [facility] Information not available 12/16/2021 Does This Patient Have A PCP? Yes [facility] Information not available 12/16/2021 We Know From Many Of Our Patients That Covering All Of Their Costs Can Be Difficult At Times. This Can Cause Stress And Impact Health. In The Past Year, Have You Been Unable To Get Any Of The Following When It Was Really Needed? No [facility] Information not available 12/16/2021 What Is Your Housing Situation Today? I Have Housing Information not available 12/16/2021 Do You Use Any Illicit Or Recreational Drugs? Yes Information not available 12/16/2021 How Many Years Have You Smoked Tobacco? 50 [facility] Information not available 12/16/2021 Do You Or Have You Ever Used Any Other Forms Of Tobacco Or Nicotine? No Information not available 12/16/2021 Sex: Unknown Functional Status None recorded. Mental Status None recorded. Family History Relationship Description Onset Age of this Age Resolved Age Notes LastModified by Organization Details LastModified Time Mother Malignant neoplastic disease [facility] Not available 12/16 13:03:02 Father Chronic obstructive pulmonary disease [facility] Not available 12/16 13:03:29 Medical History Condition Response Diabetes N Coronary Artery Disease N CHF N Parkinson's Disease N Cancer N Stroke N Dementia N Asthma N Hypothyroidism N Depression N COPD Y High Cholesterol N Rheumatoid Arthritis N Pulmonary Embolism N Hypertension Y A-fib N Osteoporosis N Kidney Disease N Past Encounters Encounter ID Performer Location Encounter Start Date Encounter Closed Date Diagnosis/Indication Diagnosis SNOMED-CT Code Diagnosis ICD10 Code Diagnosis Note [id number] Sara Childs NP [facility] [address] [facility] [place] [address] 12/16/2021 12:52:07 12/21/2021 12:28:42 Suspected COVID-19 617841263 Z20.822 Exposure t o communicable disease 028494499 Z20.822 Chronic ob structive pulmonary disease 09309373 J44.9 Health Concerns Section Related Observation LastModified by Organization Detai ls LastModified Time None Recorded Concern Status LastModified by Organization Details LastModified Time None Recorded Advance Directives Directive N: Payers Encounter Date Sequence Insurance Name Policy Number Policy Martinez Covered Member ID Martinez Member ID Guarantor Name 12/16/2021 1 [place] B[place]: [employer] Dinh Schulz [id number] Dinh Schulz 12/16/2021 2 [place] [facility] Dinh Schulz [id number] Dinh Schulz Notes Date Note Type Note [...] vaccines Sara Childs NP [address], [place], [address], [place] [facility] 12/19/2021 09:48:31
== END 2025-01-27 11:47 | disposition home or self-care (01) ==
PROVIDERS: PCP Internal Medicine; Visit Provider Anesthesiology
DX: G56.22 Lesion of ulnar nerve, left upper limb (principal); M50.30 Other cervical disc degeneration, unspecified cervical region; M51.369 Other intervertebral disc degeneration, lumbar region without mention of lumbar back pain or lower extremity pain; Z79.891 Long term (current) use of opiate analgesic; G89.4 Chronic pain syndrome; M54.16 Radiculopathy, lumbar region; M47.816 Spondylosis without myelopathy or radiculopathy, lumbar region; R07.9 Chest pain, unspecified; G47.00 Insomnia, unspecified; G58.8 Other specified mononeuropathies; M54.12 Radiculopathy, cervical region
CPT/HCPCS: 99213

== ENCOUNTER → 2025-01-27 11:34 | Outpatient (BNVA) | payer OTHER, MEDICARE, MEDICAID, SELFPAY | PROVIDERS: PCP Internal Medicine; Visit Provider Anesthesiology | DX: G89.4 Chronic pain syndrome (principal); G56.22 Lesion of ulnar nerve, left upper limb; M50.30 Other cervical disc degeneration, unspecified cervical region; M51.369 Other intervertebral disc degeneration, lumbar region without mention of lumbar back pain or lower extremity pain; M47.26 Other spondylosis with radiculopathy, lumbar region; R07.9 Chest pain, unspecified; G47.00 Insomnia, unspecified; G58.8 Other specified mononeuropathies; M54.12 Radiculopathy, cervical region; Z79.891 Long term (current) use of opiate analgesic | CPT/HCPCS: 99212 ==

== ENCOUNTER 2025-02-24 11:19 | Outpatient (AMB) | payer OTHER, MEDICARE, MEDICAID, SELFPAY ==
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
[2025-02-24 11:29] VITALS: BP 119/58; PULSE 78; RESP 16; O2SAT 95; BMI 30.6
--- OUTSIDE RECORDS SUMMARY | 2025-02-24 12:59 | XMS_ITS | Encounter Summary ---
Author Organization [facility] Address [address] [place] [address] Care Team Providers Care Sales Applications Engineer Name Role Phone Marc Taylor MD Primary Care Provider [phone] Reason for Referral * Imaging (Routine) - Closed Specialty Diagnoses / Procedures Referred By Contyoandy t Referred To Contact Radiology Diagnoses Encounter for screening for malignant neoplasm of respiratory organs Nicotine dependence, cigarettes, uncomplicated Procedures CT Lung Screening Gustavo Sherwood MD [address] [place] [address] Phone: tel: fax: [address] [address] Phone: tel: Referral ID Status Reason Start Date Expiration Date Visits Re quested Visits Authorized [id number] Closed 01/17/2025 01/17/2026 1 1 Reason for Visit * Imaging (Routine) - Closed Specialty Diagnoses / Procedures Referred By Contac t Referred To Contact Radiology Diagnoses Encounter for screening for malignant neoplasm of respiratory organs Nicotine dependence, cigarettes, uncomplicated Procedures CT Lung Screening Gustavo Sherwood MD [address] [address] Phone: tel: fax: [address] [address] Phone: tel: Referral ID Status Reason Start Date Expiration Date Visits Re quested Visits Authorized [id number] Closed 01/17/2025 01/17/2026 1 1 Encounter Details Date Type Department Care Team (Latest Contact Info) Description 02/19/2025 10:07 AM EDT - 02/19/2025 11:59 PM EDT Hospital Encounter [facility] CT Scan [address] [place] [address] Encounter for screening for malignant neoplasm of respiratory organs; Nicotine dependence, cigarettes, uncomplicated Discharge Disposition: Home or Self Care Social History Tobacco Use Types Packs/Day Years [...] on file documented as of this encounter Medications at Time of Discharge albuterol 2.5 mg /3 mL (0.083 %) nebulizer solution INHALE 1 VIAL VIA NEBULIZER EVERY 4 HOURS NEEDED FOR WHEEZING 03/24/2021 aspirin 81 mg EC tablet Take 1 tablet (81 mg total) by mouth 1 (one) time each day. 06/26/2024 atorvastatin (LIPITOR) 40 mg tablet TAKE 1 TABLET BY MOUTH EVERY DAY 90 tablet 2 01/05/2025 buPROPion SR (WELLBUTRIN SR) 150 mg 12 hr tablet Take 1 tablet (150 mg total) by mouth 2 (two) times a day. 07/17/2024 cetirizine (ZyrTEC) 10 mg tablet Take 1 tablet (10 mg total) by mouth 1 (one) time each day. 06/26/2024 cyanocobalamin (VITAMIN B-12) 1,000 mcg tablet Take 1 tablet (1,000 mcg total) by mouth 2 (two) times a day. 06/26/2024 fluticasone-umecl idinium-vilantero l (Trelegy Ellipta) 100-62.5-25 mcg inhaler INHALE 1 DOSE DAILY 08/10/2024 ipratropium-albut Rigoberto (DUONEB) 0.5-2.5 mg/3 mL nebulizer solution INHALE 1 VIAL VIA NEBULIZER EVERY 6 HOURS NEEDED FOR WHEEZING OR SHORTNESS OF BREATH 360 mL 2 10/17/2024 magnesium oxide (MAG-OX) 400 mg (241.3 elemental magnesium) tablet Take 1 tablet (400 mg total) by mouth. 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 nortriptyline (PAMELOR) 25 mg capsule TAKE 1 CAPSULE BY MOUTH 3 TIMES A DAY FOR 30 DAYS. TO HELP QUIT SMOKING 08/16/2024 omeprazole (PriLOSEC) [address] capsule Take 1 capsule (40 mg total) by mouth. 03/14/2024 oxyCODONE (ROXICODONE) 5 mg immediate release tablet TAKE 1 AND 1/2 TABLETS BY MOUTH 3 TIMES A DAY 07/23/2021 pregabalin (LYRICA) 300 mg capsule Take 1 capsule (300 mg total) by mouth 2 (two) times a day. sertraline (ZOLOFT) 50 mg tablet TAKE 1 TABLET BY MOUTH EVERY DAY 90 tablet 1 11/11/2024 suvorexant (Belsomra) 20 mg tablet TAKE 1 TABLET BY MOUTH AT BEDTIME 07/11/2024 varenicline (CHANTIX FILI) 0.5 mg (11)- 1 mg (42) tabletIndications :Chronic obstructive pulmonary disease, unspecified COPD type ([facility]) USE DIRECTED PER PACKAGE LABELING 53 each 11/14/2024 documented as of this encounter Discharge Disposition Disposition Code Departure Means Destination Home or Self Care documented in this encounter Plan of Treatment Upcoming Encounters Date Type Department Care Team (Late st Contact Info) Description 03/18/2025 11:15 AM EDT Office Visit Internal Medicine - [address] [address] Marc Taylor MD [address] [place] [address] 05/15/2025 10:45 AM EDT Office Visit Pulmonolgy - [place] [facility] [address] [place] [address] Abelardo Conteh MD [address] Gustavo [address] [place] [address] documented as of this encounter Procedures Procedure Name Priority Date/Time Associated Diagnosis Comments CT LUNG SCREENING Routine 02/19/2025 10: 30 AM EDT Encounter for screening for malignant neoplasm of respiratory organs Nicotine dependence, cigarettes, uncomplicated documented in this encounter Results * CT Lung Screening (02/19/2025 10:30 AM EDT) Anatomical Region Laterality Modality Chest Computed Tomogra phy 02/24/2025 11:3 8 AM EDT Impressions 02/24/2025 12:01 PM EDT New 1.5 cm nodule with central coarse calcification is nonspecific but could represent hamartoma. ??Recommend PET/CT. There is also slight increase in size of the fissural nodules. ASSESSMENT: LungRADS [id number]: Suspicious - Chest CT with or without contrast, PET/CT and/or tissue sampling depending on the probability of malignancy and comorbidities. PET/CT may be used when there is a ? 8 mm solid component. Please see below for additional details of LungRADS Algorithm. Complete Lung RADS description including probabilities of malignancy and prevalence can be found at: http://www.acr.org/Quality-Safety/Resources/LungRADS LungRADS Version 1.0 Assessment Categories Release date: March 24, 2014 Category 0: Incomplete - Additional lung cancer screening CT images and/or comparison with prior CT is needed. - Prior chest CT(s) being located for comparison. - Part or all of the lungs cannot be evaluated. Category 1: Negative - Continue annual screening with LDCT in 12 months - No lung nodules - Nodule(s) with specific calcifications (complete, central, popcorn, concentric rings) and fat containing nodules Category 2: Benign Appearance/Behavior - Continue annual screening with LDCT in 12 months - Solid nodule < 6 mm or new solid nodule < 4 mm. - Part solid nodule(s) < 6 mm total diameter on baseline screening. - Ground glass nodule < 20 mm or ? 20 mm and unchanged or slowly growing. - Category 3 or 4 nodules unchanged for at least 3 months. Category 3: Probably Benign - 6 month LDCT - Solid nodule(s) ? 6 to < 8 mm at baseline OR new 4 mm to < 6 mm. - Part solid nodule(s) ? 6 mm total diameter with solid component < 6 mm OR new < 6 mm total diameter. - Ground glass nodule ? [address] or new. Category 4A: Suspicious - 3 month LDCT; PET/CT may be used when there is ? 8 mm solid component - Solid nodule(s) ? 8 to < 15 mm at baseline OR growing < 8 mm OR new 6 to < 8 mm. - Part solid nodule(s) ? 6 mm with solid component ? 6 mm to < 8 mm OR with a new or growing < 4 mm solid component. - Endobronchial nodule. Category 4B: Suspicious - Chest CT with or without contrast, PET/CT and/or tissue sampling depending on the probability of malignancy and comorbidities. PET/CT may be used when there is a ? 8 mm solid component. - Solid nodule(s) ? 15 mm OR new or growing and ? 8 mm - Part solid nodule(s) with a solid component ? 8 mm OR a new or growing ? 4 mm solid component Category 4X: Suspicious - Chest CT with or without contrast, PET/CT and/or tissue sampling depending on the probability of malignancy and comorbidities. PET/CT may be used when there is a ? 8 mm solid component. - Category 3 or 4 nodules with additional features or imaging findings that increases the suspicion of malignancy. Category S: Clinically Significant or Potentially Clinically Significant Findings (non lung cancer) Category C: Modifier for patients with a prior diagnosis of lung cancer who return to screening NOTES: 1) Negative screen: does not mean that an individual does not have lung cancer. 2) Size: nodules should be measured on lung windows and reported as the average diameter rounded to the nearest whole number; for round nodules only a single diameter measurement is necessary. 3) Size Thresholds: apply to nodules at first detection, and that grow and reach a higher size category. 4) Growth: an increase in size of > 1.5 mm. 5) Exam Category: each exam should be coded 0-4 based on the nodule(s). 6) Exam Modifiers: S and C modifiers may be added to the 0-4 category. 7) Lung Cancer Diagnosis: Once a patient is diagnosed with lung cancer, further management (including additional imaging such as PET/CT) may be performed for purposes of lung cancer staging; this is no longer screening. 8) Practice audit definitions: a negative screen is defined as categories 1 and 2; a positive screen is defined as categories 3 and 4. 10) Category 4X: nodules with additional imaging findings that increase the suspicion of lung cancer, such as spiculation, GGN that doubles in size in 1 year, enlarged lymph nodes etc. 11) Nodules with features of an intrapulmonary lymph node should be managed by mean diameter and the 0-4 numerical category classification. 12) Category 3 and 4A nodules that are unchanged on interval CT should be coded as category 2, and individuals returned to screening in 12 months. 13) LDCT = low dose chest CT. -------- FINAL REPORT -------- Dictated By: Andre Katz Dictated Date: 02/24/2025 11:38 ET Assigned Physician: Andre Katz Reviewed and Electronically Signed By: Andre Katz Signed Date: 02/24/2025 12:01 ET Workstation ID: [id number] Transcribed By: Self Edit Transcribed Date: 02/24/2025 11:43 ET Narrative 02/24/2025 12:01 PM EDT History: ??69 year-old 60 pack-year current smoker, asymptomatic, for lung cancer screening. Comparison: 02/06/2024 Technique: Helical volumetric imaging of the thorax was performed, using low- dose technique, without IV contrast. DLP: 176 mGy/cm CT dose reduction technique utilized with one or more of the following: Automated exposure control and/or adjustment of the mA and/or kV according to patient size and/or use of iterative reconstruction technique. Findings: Lungs: Emphysematous changes throughout. ??Bilateral fissural nodules which have increased in size, most notably is a new pleural-based nodule measuring 1.5 cm in the left lung base with central calcification. ??Bibasilar hypoventilatory changes/atelectasis. Pleura: There are no pleural effusions. ??No calcified or noncalcified pleural plaques. Heart/Aorta: The heart is normal in size. ??There is no pericardial effusion. ??Coronary artery calcifications. Esophagus: Mild thickening of the distal esophagus unchanged. Lymph Nodes:There are no enlarged thoracic lymph nodes. ?? Upper Abdomen: This study was performed without contrast and with lower than standard dose. These factors reduce the sensitivity for detection of small lesions in the upper abdomen. Unremarkable. Osseous Structures: Degenerative changes of the spine. Procedure Note Andre Katz MD - 02/24/2025 History: 69 year-old 60 pack-year current smoker, asymptomatic, for lungcancer screening. Comparison: 02/06/2024 Technique: Helical volumetric imaging of the thorax was performed, usinglow-dose technique, without IV contrast. DLP: 176 mGy/cm CT dose reduction technique utilized with one or more of the following:Automated exposure control and/or adjustment of the mA and/or kV accordingto patient size and/or use of iterative reconstruction technique. Findings: Lungs: Emphysematous changes throughout. Bilateral fissural nodules whichhave increased in size, most notably is a new pleural-based nodulemeasuring 1.5 cm in the left lung base with central calcification.Bibasilar hypoventilatory changes/atelectasis. Pleura: There are no pleural effusions. No calcified or noncalcifiedpleural plaques. Heart/Aorta: The heart is normal in size. There is no pericardialeffusion. Coronary artery calcifications. Esophagus: Mild thickening of the distal esophagus unchanged. Lymph Nodes:There are no enlarged thoracic lymph nodes. Upper Abdomen: This study was performed without contrast and with lowerthan standard dose. These factors reduce the sensitivity for detection ofsmall lesions in the upper abdomen. Unremarkable. Osseous Structures: Degenerative changes of the spine. IMPRESSION: New 1.5 cm nodule with central coarse calcification is nonspecific butcould represent hamartoma. Recommend PET/CT. There is also slight increase in size of the fissural nodules. ASSESSMENT: LungRADS [id number]: Suspicious - Chest CT with or without contrast,PET/CT and/or tissue sampling depending on the probability of malignancyand comorbidities. PET/CT may be used when there is a ? 8 mm solidcomponent. Please see below for additional details of LungRADS Algorithm. CompleteLung RADS description including probabilities of malignancy and prevalencecan be found at: http://www.acr.org/Quality-Safety/Resources/LungRADS LungRADS Version 1.0 Assessment Categories Release date: March 24, 2014 Category 0: Incomplete - Additional lung cancer screening CT images and/orcomparison with prior CT is needed. - Prior chest CT(s) being located for comparison. - Part or all of the lungs cannot be evaluated. Category 1: Negative - Continue annual screening with LDCT in 12 months - No lung nodules - Nodule(s) with specific calcifications (complete, central, popcorn,concentric rings) and fat containing nodules Category 2: Benign Appearance/Behavior - Continue annual screening withLDCT in 12 months - Solid nodule < 6 mm or new solid nodule < 4 mm. - Part solid nodule(s) < 6 mm total diameter on baseline screening. - Ground glass nodule < 20 mm or ? 20 mm and unchanged or slowlygrowing. - Category 3 or 4 nodules unchanged for at least 3 months. Category 3: Probably Benign - 6 month LDCT - Solid nodule(s) ? 6 to < 8 mm at baseline OR new 4 mm to < 6 mm. - Part solid nodule(s) ? 6 mm total diameter with solid component < 6 mmOR new < 6 mm total diameter. - Ground glass nodule ? [address] or new. Category 4A: Suspicious - 3 month LDCT; PET/CT may be used when there is ?8 mm solid component - Solid nodule(s) ? 8 to < 15 mm at baseline OR growing < 8 mm OR new 6 to< 8 mm. - Part solid nodule(s) ? 6 mm with solid component ? 6 mm to < 8 mm ORwith a new or growing < 4 mm solid component. - Endobronchial nodule. Category 4B: Suspicious - Chest CT with or without contrast, PET/CT and/ortissue sampling depending on the probability of malignancy andcomorbidities. PET/CT may be used when there is a ? 8 mm solidcomponent. - Solid nodule(s) ? 15 mm OR new or growing and ? 8 mm - Part solid nodule(s) with a solid component ? 8 mm OR a new or growing ?4 mm solid component Category 4X: Suspicious - Chest CT with or without contrast, PET/CT and/ortissue sampling depending on the probability of malignancy andcomorbidities. PET/CT may be used when there is a ? 8 mm solidcomponent. - Category 3 or 4 nodules with additional features or imaging findingsthat increases the suspicion of malignancy. Category S: Clinically Significant or Potentially Clinically SignificantFindings (non lung cancer) Category C: Modifier for patients with a prior diagnosis of lung cancerwho return to screening NOTES: 1) Negative screen: does not mean that an individual does not have lungcancer. 2) Size: nodules should be measured on lung windows and reported as theaverage diameter rounded to the nearest whole number; for round nodulesonly a single diameter measurement is necessary. 3) Size Thresholds: apply to nodules at first detection, and that grow andreach a higher size category. 4) Growth: an increase in size of > 1.5 mm. 5) Exam Category: each exam should be coded 0-4 based on the nodule(s). 6) Exam Modifiers: S and C modifiers may be added to the 0-4 category. 7) Lung Cancer Diagnosis: Once a patient is diagnosed with lung cancer,further management (including additional imaging such as PET/CT) may beperformed for purposes of lung cancer staging; this is no longerscreening. 8) Practice audit definitions: a negative screen is defined as categories1 and 2; a positive screen is defined as categories 3 and 4. 10) Category 4X: nodules with additional imaging findings that increasethe suspicion of lung cancer, such as spiculation, GGN that doubles insize in 1 year, enlarged lymph nodes etc. 11) Nodules with features of an intrapulmonary lymph node should bemanaged by mean diameter and the 0-4 numerical category classification. 12) Category 3 and 4A nodules that are unchanged on interval CT should becoded as category 2, and individuals returned to screening in 12 months. 13) LDCT = low dose chest CT. -------- FINAL REPORT -------- Dictated By: Andre Katz Dictated Date: 02/24/2025 11:38 ET Assigned Physician: Andre Katz Reviewed and Electronically Signed By: Andre Katz Signed Date: 02/24/2025 12:01 ET Workstation ID: [id number] Transcribed By: Self Edit Transcribed Date: 02/24/2025 11:43 ET us Gustavo Sherwood MD IMG CT PROCEDURES Final Result documented in this encounter Visit Diagnoses Diagnosis Encounter for screening for malignant neoplasm of respiratory organs Nicotine dependence, cigarettes, uncomplicated documented in this encounter Additional Health Concerns Assessment Noted Time PHQ-9 Depression Total Score: 10 025 10:55 AM EDT documented as of this encounter Care Teams Sales Applications Engineer Relationship Specialty Start Date End Date Marc Taylor MD [address] [place] [address] PCP - General Internal Medicine 12/04/18 documented as of this encounter
--- OUTSIDE RECORDS SUMMARY | 2025-02-24 12:59 | XMS_ITS ---
Author Organization 175 [facility] Address [address] [place] [address] Phone Care Team Providers Care Brick Tosser Name Role Phone Marc Taylor MD Primary Care Provider [phone] High Risk Care Management Status:Ongoing (Active) Start date:01/27/2025 Enrollment date:02/18/2025 Enrollment reason:Identified as high-risk Case Team Name Relationship Phone Georgina Calderon RN Care Manager(Responsible S taff) Continued Care and Services Coordination
--- OUTSIDE RECORDS SUMMARY | 2025-02-24 12:59 | XMS_ITS ---
Author Organization 175 [facility] Address [address] [place] [address] Phone Care Team Providers Care Camera Technician Name Role Phone Marc Taylor MD Primary Care Provider [phone] Sole Stainer Care Management Status:Identified (Enrolling) Start date:02/18/2025 Enrollment reason:Referred by Care Team Overview Referral from Georgina coombs provider Case Team Name Relationship Phone Adamaris VALLES Credit Assessment Analyst(Responsible [facility]) [phone] Continued Care and Services Coordination
--- OUTSIDE RECORDS SUMMARY | 2025-02-24 12:59 | XMS_ITS | Clinical Summary ---
Author Organization [facility] Address [address] [address] Phone Care Team Providers Care Harp Maker Name Role Phone Marc Taylor MD Primary Care Provider [phone] Allergies No known active allergies Medications atorvastatin [...] 24 Overview (12/15/2023): Sees [facility] Encounters Date Type Department Care Team Description 12/09/2024 Refill [facility] [address] [place] [address] Terell Minor MD from Last 3 Months Immunizations Name Administration [...] Office Visit [facility] [address] [address] Olive Bennett ARNP [address] [address] Health Maintenance Due Date Last Done Comments Colorectal Cancer Screening: Annual FOBT 2003 Colorectal Cancer Screening: Colonoscopy 2003 Colorectal Cancer Screening: Sigmoidoscopy 2003 Pneumococcal Vaccine: 65+ Years (3 of 3 - PPSV23 or PCV20) 12/08/2022 10/13/2022, 05/04/2012 Influenza Vaccine (#1) 2024 , 10/13/2022, 08/19/2021, Additional history exists Hepatitis B Vaccine Aged Out No longe r eligible based on patient's age to complete this topic [place] [address] [place] Care Teams Harp Maker Relationship Specialty Start Date End Date Marc Taylor MD [address] [address] PCP - General Internal Medicine 12/15/23
--- OUTSIDE RECORDS SUMMARY | 2025-02-24 12:59 | XMS_ITS | Clinical Summary ---
Author Organization 175 [facility] Address [address] [place] [address] Phone Care Team Providers Care Passenger Tire Inspector Name Role Phone Marc Taylor MD Primary Care Provider [phone] Allergies Active Allergy Reactions Criticality Noted Date Comments Other 02/16/2024 Seasonal allergies Medications nortriptyline (PAMELOR) 25 mg capsule TAKE 1 CAPSULE BY MOUTH 3 TIMES A DAY FOR 30 DAYS. TO HELP QUIT SMOKING 4 Active fluticasone-umec lidinium-vilante rol (Trelegy Ellipta) 100-62.5-25 mcg inhaler INHALE 1 DOSE DAILY 4 Active magnesium oxide (MAG-OX) 400 mg (241.3 elemental magnesium) tablet Take 1 tablet (400 mg total) by mouth. 4 Active omeprazole (PriLOSEC) [address] capsule Take 1 capsule (40 mg total) by mouth. 4 Active suvorexant (Belsomra) 20 mg tablet TAKE 1 TABLET BY MOUTH AT BEDTIME 4 Active buPROPion SR (WELLBUTRIN SR) 150 mg 12 hr tablet Take 1 tablet (150 mg total) by mouth 2 (two) times a day. 4 Active cetirizine (ZyrTEC) 10 mg tablet Take 1 tablet (10 mg total) by mouth 1 (one) time each day. 4 Active cyanocobalamin (VITAMIN B-12) 1,000 mcg tablet Take 1 tablet (1,000 mcg total) by mouth 2 (two) times a day. 4 Active pregabalin (LYRICA) 300 mg capsule Take 1 capsule (300 mg total) by mouth 2 (two) times a day. Active aspirin 81 mg EC tablet Take 1 tablet (81 mg total) by mouth 1 (one) time each day. 4 Active NIFEdipine (ADALAT CC) 30 mg 24 hr tablet Take 1 tablet (30 mg total) by mouth 1 (one) time each day. Active oxyCODONE (ROXICODONE) 5 mg immediate release tablet TAKE 1 AND 1/2 TABLETS BY MOUTH 3 TIMES A DAY 1 Active albuterol 2.5 mg /3 mL (0.083 %) nebulizer solution INHALE 1 VIAL VIA NEBULIZER EVERY 4 HOURS NEEDED FOR WHEEZING 1 Active medical marijuana BUTTER FAT TESTER med Active ipratropium-albu teroL (DUONEB) 0.5-2.5 mg/3 mL nebulizer solution INHALE 1 VIAL VIA NEBULIZER EVERY 6 HOURS NEEDED FOR WHEEZING OR SHORTNESS OF BREATH 360 mL 2 4 Active sertraline (ZOLOFT) 50 mg tablet TAKE 1 TABLET BY MOUTH EVERY DAY 90 tablet 1 4 Active varenicline (CHANTIX FILI) 0.5 mg (11)- 1 mg (42) tabletIndication s:Chronic obstructive pulmonary disease, unspecified COPD type (CMS/HCC) USE DIRECTED PER PACKAGE LABELING 53 each 4 Active atorvastatin (LIPITOR) 40 mg tablet TAKE 1 TABLET BY MOUTH EVERY DAY 90 tablet 2 5 Active Hospital, Clinic, or Other Facility Administered Medication [...] foods. He believes he saw ENT [place] and had a scope procedure done. Mr. Schulz has severe C4-5, C5-6 central stenosis on C/S MRI 08/21/24 [facility], Dr. Castro is offering patient C4-5, C5-6 [...] with risk of stroke (prior TIA/stroke) or NE, damage to nerve or spinal cord causing [...] PERMANENT MARIJUANA CARD DROPPED OFF TODAY 09/16/2015. REGISTRATION#[id number]. EXPIRES 09/08/2018TEMPORARY CARD REGISTRATION#[id number] EXPIRES 10/19/2015 Chronic radicular cervical pain 06/02/2008 Overview (09/13/2024): S/p MRI x 2 , s/p N-S appts. Radiates into rt. Arm, narcotics since 1999 Depression 06/02/2008 Overview (09/13/2024): Sees Dr. Vance Raffi floweree Essential hypertension, benign 06/02/2008 Encounters Date Type Department Care Team Description 02/19/2025 10:07 AM EDT - 02/19/2025 11:59 PM EDT Hospital Encounter [facility] CT Scan [address] [place] [address] Encounter for screening for malignant neoplasm of respiratory organs; Nicotine dependence, cigarettes, uncomplicated Discharge Disposition: Home or Self Care 01/24/2025 Telephone Lung Screening Program - [place] [address] [facility] [address] [place] [phone] Chasidy Em [place] Appointment (1Notifications) 12/26/2024 Telephone Internal Medicine - [place] [address] [facility] [address] [place] [phone] Marc Taylor MD 12/04/2024 Telephone Internal Medicine - [place] [address] [facility] [address] [place] [address] Maggi Rodriguez [place] faxed order ([employer] medical supplies) from Last 3 Months Immunizations Name Administration [...] 1999 COPD (chronic obstructive pu lmonary disease) ([facility]) 12/13/2017 DX:COPD (chronic obstructive pulmonary disease) ([facility]); COMMENT: Dr. Conteh, Severe emphysema Depression 06/02/2008 DX:Depression; [facility] Erectile dysfunction 06/26/2018 DX:Erectile dysfunction Hyperlipidemia 06/26/2018 DX:Hyperlipidemi a Insomnia 12/18/2017 DX:Insomnia Nicotine use disorder 06/26/2018 DX:Nicotin e use disorder Weakness of both arms DX:Weaknes s of both arms Memory changes DX:Memory change s Essential (primary) hypertension DX:Essential (primary) hypertension Perforated duodenal ulcer (CMS/HCC) 09/15/2021 DX:Perforated duodenal ulcer ([facility]); COMMENT: diagnostic laparotomy with oversewing of perforated duodenal ulcer with a Pa patch, Dr. Biswas Hiatal hernia with gastroeso phageal reflux 05/26/2022 DX:Hiatal hernia with gastroesophageal reflux CKD (chronic kidney disease) stage 3, GFR 30-59 ml/min ([facility]) DX:CKD (chronic kidney dise ase) stage 3, GFR 30-59 ml/min ([facility]) CVA (cerebral vascular accid ent) ([facility]) 02/2024 DX:CVA (cerebral vascular ac cident) ([facility]); COMMENT: TIA 2021 Family History Medical History [...] AM EDT Office Visit Internal Medicine - [place] [address] [facility] [address] [place] [phone] Marc Taylor MD [address] [address] 05/15/2025 10:45 AM EDT Office Visit Pulmonolgy - [place] [address] [phone] Abelardo Conteh MD 175 [facility] [address] [place] [address] Health Maintenance Due Date Last Done Comments Zoster Vaccines (1 of 2) 2004 RSV Immunization Patients 60+ Years Old (1 - Risk 60-74 years 1-dose series) 2014 DTaP,Tdap,and Td Vaccines (3 - Td or Tdap) 09/10/2019 09/10/2009, 08/02/2008 COVID-19 Vaccine (2 - Pfizer risk series) 04/06/2021 03/16/2021 Colorectal Cancer Screening: Colonoscopy 10/31/2022 Social Influencers of Health Screening 10/31/2022 Influenza Vaccine (#1) 2024 , 08/19/2021, 09/11/2015, Additional history exists Hypertension/CHF/CAD Annual BMP Blood Test 09/15/2024 09/15/2023 Falls Risk Assessment 02/15/2025 02/16/2024 Medicare Annual Wellness Visit 02/15/2025 02/16/2024 Depression Screening 02/18/2026 02/18/2025, 02/16/20 Pneumococcal Vaccine: 50+ Years (3 of 3 [...] patient's age to complete this topic Hepatitis A Vaccines Aged Out No long er eligible [...] of respiratory organs Nicotine dependence, cigarettes, uncomplicated ABDOMINAL AORTIC ANEURYSM SCRREN Routine 03/05/2024 DEPRESSION SCREENING Routine 02/16/2024 FALLS RISK ASSESSMENT Routine 02/16/2024 ANNUAL BMP BLOOD TEST Routine 09/15/2023 LIPID PANEL Routine 05/29/2023 HEPATITIS C SCREENING Routine 03/20/2019 from Last 3 Months or Most Recently Relevant to Health Maintenance Results * CT Lung Screening (02/19/2025 10:30 AM EDT) Anatomical Region Laterality Modality Chest Computed Tomogra phy 02/24/2025 11:3 8 AM EDT Impressions 02/24/2025 12:01 PM EDT New 1.5 cm nodule with central coarse calcification is nonspecific but could represent hamartoma. ??Recommend PET/CT. There is also slight increase in size of the fissural nodules. ASSESSMENT: LungRADS [id number]: Suspicious - Chest CT with or without [...] Signed Date: 02/24/2025 12:01 ET Workstation ID: [id number] Transcribed By: Self Edit Transcribed Date: 02/24/2025 [...] size of the fissural nodules. ASSESSMENT: LungRADS [id number]: Suspicious - Chest CT with or without [...] Signed Date: 02/24/2025 12:01 ET Workstation ID: [id number] Transcribed By: Self Edit Transcribed Date: 02/24/2025 11:43 ET Result [facility] Gustavo Sherwood MD IM CT PROCEDURES Final Result * Abdominal Aortic Aneurysm Screen (03/05/2024) [facility] Abdominal Aortic Aneurysm (AAA) Screening abstracted, no interpretation Anatomical Region Laterality Modality Other Result [facility] HEALTH MAINTENANCE Final Result * Falls Risk Assessment (02/16/2024) [facility] Falls Risk Assessment abstracted Result [facility] HEALTH MAINTENANCE Final Result * Depression Screening (02/16/2024) [facility] Depression Screening abstracted Result [facility] HEALTH MAINTENANCE Final Result * Annual BMP Blood Test (09/15/2023) [facility] Annual BMP Blood Test abstracted Result [facility] Final Result * Lipid panel (05/29/2023) [facility] LDL/HDL Ratio 3 0 - 4 Triglycerides 71 0 - 150 mg/dL Cholesterol 148 0 - 200 mg/dL HDL 58 >=40 mg/dL LDL Cholesterol 76 0 - 100 mg/dL Blood Venous blood specimen / Unknown Historical Provider LAB BLOOD ORDERABLES Katie l Result * Hepatitis C Screening (03/20/2019) Hepatitis C Screening abstracted Historical Provider HEALTH MAINTENANCE Final Result from Last 3 Months or Most Recently Relevant to Health Maintenance Insurance MEDICARE [place]ICA[place] - [place] Advance Directives Documents on File Type Date Recorded Patient Cans Vacuum Tester Expl anation Health Care Decision (hx) 09/18/2021 [...] DIRECTIVE Health Care Decision (hx) 09/16/2021 AD RUZI DIRECTIVE Health Care Decision (hx) 09/16/2021 AD [...] (hx) 09/16/2021 AD RUIZ DIRECTIVE Care Teams Passenger Tire Inspector Relationship Specialty Start Date End Date Marc Taylor MD [address] [place] [address] PCP - General Internal Medicine 12/04/18
== END 2025-02-24 11:37 | disposition home or self-care (01) ==
LOC: HO.PMC 11:20
PROVIDERS: PCP Internal Medicine; Visit Provider Anesthesiology
DX: G89.4 Chronic pain syndrome (principal); G56.22 Lesion of ulnar nerve, left upper limb; M50.30 Other cervical disc degeneration, unspecified cervical region; Z79.891 Long term (current) use of opiate analgesic; M51.369 Other intervertebral disc degeneration, lumbar region without mention of lumbar back pain or lower extremity pain; M54.16 Radiculopathy, lumbar region; M47.816 Spondylosis without myelopathy or radiculopathy, lumbar region; R07.9 Chest pain, unspecified; G47.00 Insomnia, unspecified; G58.8 Other specified mononeuropathies; M54.12 Radiculopathy, cervical region
CPT/HCPCS: 99213

== ENCOUNTER → 2025-02-24 11:19 | Outpatient (BNVA) | payer OTHER, MEDICARE, MEDICAID, SELFPAY | PROVIDERS: PCP Internal Medicine; Visit Provider Anesthesiology | DX: G56.22 Lesion of ulnar nerve, left upper limb (principal); M50.30 Other cervical disc degeneration, unspecified cervical region; M51.369 Other intervertebral disc degeneration, lumbar region without mention of lumbar back pain or lower extremity pain; G89.4 Chronic pain syndrome; M47.26 Other spondylosis with radiculopathy, lumbar region; R07.9 Chest pain, unspecified; G47.00 Insomnia, unspecified; G58.8 Other specified mononeuropathies; M54.12 Radiculopathy, cervical region; Z79.891 Long term (current) use of opiate analgesic | CPT/HCPCS: 99212 ==

== ENCOUNTER 2025-03-24 11:34 | Outpatient (AMB) | payer OTHER, MEDICARE, MEDICAID, SELFPAY ==
[2025-03-24 11:42] VITALS: BP 142/79; PULSE 91; O2SAT 95; BMI 29.5
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
--- OUTSIDE RECORDS SUMMARY | 2025-03-24 13:58 | XMS_ITS | Clinical Summary ---
Author Organization [address] 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 V24, [facility] V28) USE DIRECTED PER PACKAGE LABELING 53 each 11/14/20 24 Active atorvastatin (LIPITOR) 40 mg tablet TAKE 1 TABLET BY MOUTH EVERY DAY 90 tablet 2 01/05/20 25 Active cetirizine (ZyrTEC) 10 mg tablet TAKE 1 TABLET BY MOUTH EVERY DAY 90 tablet 1 03/20/20 25 Active cyanocobalamin (VITAMIN B-12) 1,000 mcg tablet TAKE 1 TABLET BY MOUTH 2 TIMES DAILY 180 tablet 1 03/20/20 25 Active buPROPion SR (WELLBUTRIN SR) 150 mg 12 hr tablet TAKE 1 TABLET BY MOUTH TWICE A DAY 60 tablet 1 03/20/20 25 Active buPROPion SR (WELLBUTRIN SR) 150 mg 12 hr tablet Take 1 tablet (150 mg total) by mouth 2 (two) times a day. 07/17/20 24 025 Discontinued cetirizine (ZyrTEC) 10 mg tablet Take 1 tablet (10 mg total) by mouth 1 (one) time each day. 06/26/20 24 025 Discontinued cyanocobalamin (VITAMIN B-12) 1,000 mcg tablet Take 1 tablet (1,000 mcg total) by mouth 2 (two) times a day. 06/26/20 24 025 Discontinued Hospital, Clinic, or Other Facility Administered Medication Ordered Dose Route Frequency Start Date End Date Status ipratropium-albuteroL (DUONEB) 0.5-2.5 mg/3 mL nebulizer solution 3 mLIndications:Chronic obstructive pulmonary disease, unspecified COPD type ([facility] V24, [facility] V28) 3 mL nebu Every 6 hours PRN [...] foods. He believes he saw ENT on [facility] and had a scope procedure done. Mr. Schulz has severe C4-5, C5-6 central stenosis on C/S MRI 08/21/24 [facility], Dr. Castro is offering patient C4-5, C5-6 [...] with risk of stroke (prior TIA/stroke) or CT, damage to nerve or spinal cord causing [...] Hyperlipidemia 06/26/2018 Insomnia 12/18/2017 COPD (chronic obstructive pu lmonary disease) ([facility] V24, [facility] V28) 12/13/2017 Allergic rhinitis 09/22/2017 Anxiety 09/22/2017 Cannabis abuse 09/11/2015 Overview (09/13/2024): PERMANENT MARIJUANA CARD DROPPED OFF TODAY 09/16/2015. REGISTRATION#[id number]. EXPIRES 09/08/2018TEMPORARY CARD REGISTRATION#[id number] EXPIRES 10/19/2015 Chronic radicular cervical pain 06/02/2008 Overview (09/13/2024): S/p MRI x 2 , s/p N-S appts. Radiates into rt. Arm, narcotics since 1999 Depression 06/02/2008 Overview (09/13/2024): Sees Dr. Moreno Nugent schenevus Essential hypertension, benign 06/02/2008 Encounters Date Type Department Care Team Description 02/24/2025 Telephone Lung Screening Program - [place] [facility] [address] [place] [address] Mera Rao [place] Results (Suspicious Findings) 02/19/2025 10:07 AM EDT - 02/19/2025 11:59 PM EDT Hospital Encounter [facility] CT Scan [address] [place] [address] Encounter for screening for malignant neoplasm of respiratory organs; Nicotine dependence, cigarettes, uncomplicated Discharge Disposition: Home or Self Care 01/24/2025 Telephone Lung Screening Program - [place] [facility] [address] [place] [address] Chasidy Em [place] Appointment (1Notifications) 12/26/2024 Telephone Internal Medicine - [place] [facility] [address] [place] [id number] Marc Taylor MD from Last 3 Months Immunizations Name [...] 1999 COPD (chronic obstructive pu lmonary disease) ([facility] V24, [facility] V28) 12/13/2017 DX:COPD (chronic o bstructive pulmonary disease) ([facility]); COMMENT: Dr. Conteh, Severe emphysema Depression 06/02/2008 DX:Depression; C OMMENT: Sees Dr. Moreno Nugent schenevus Erectile dysfunction 06/26/2018 DX:Erectile dysfunction Hyperlipidemia 06/26/2018 DX:Hyperlipidemi a Insomnia 12/18/2017 DX:Insomnia Nicotine use disorder 06/26/2018 DX:Nicotin e use disorder Weakness of both arms DX:Weaknes s of both arms Memory changes DX:Memory change s Essential (primary) hypertension DX:Essential (primary) hypertension Perforated duodenal ulcer ([facility] V24, [facility] V28) 09/15/2021 DX:Perforated duodenal ulcer ([facility]); COMMENT: diagnostic laparotomy with oversewing of perforated duodenal ulcer with a Pa patch, Dr. Biwsas Hiatal hernia with gastroeso phageal reflux 05/26/2022 DX:Hiatal hernia with gastroesophageal reflux CKD (chronic kidney disease) stage 3, GFR 30-59 ml/min ([facility] V24, [facility] V28) DX:CKD (chronic kidney disea se) stage 3, GFR 30-59 ml/min ([facility]) CVA (cerebral vascular accid ent) ([facility] V24, [facility] V28) 02/2024 DX:CVA (cerebral vascular a ccident) ([facility]); COMMENT: TIA 2021 Family History Medical History [...] Care Team (Late st Contact Info) Description 04/15/2025 11:15 AM EDT Office Visit Internal Medicine - [place] [address] [phone] Marc Taylor MD [address] [address] 05/15/2025 10:45 AM EDT Office Visit Pulmonolgy - [place] [address] [phone] Abelardo Conteh MD [address] [address] Health Maintenance Due Date Last Done Comments Hepatitis A Vaccines (1 of 2 - Risk 2-dose series) 1973 Zoster Vaccines (1 of 2) 2004 RSV Immunization Adult Patients (1 - Risk 60-74 years 1-dose series) 2014 DTaP,Tdap,and Td Vaccines (3 - Td or Tdap) 09/10/2019 09/10/2009, 08/02/2008 COVID-19 Vaccine (2 - Pfizer risk series) 04/06/2021 03/16/2021 Colorectal Cancer Screening: Colonoscopy 10/31/2022 Social Influencers of Health Screening 10/31/2022 Hypertension/CHF/CAD Annual BMP Blood Test 09/15/2024 09/15/2023 Falls Risk Assessment 02/15/2025 02/16/2024 Medicare Annual Wellness Visit 02/15/2025 02/16/2024 Influenza Vaccine (Season Ended) 2025 10/13/2022, 08/19/2021, 09/11/2015, Additional history exists Depression Screening 02/18/2026 02/18/2025, 02/16/20 Pneumococcal Vaccine: [...] age to complete this topic Meningococcal B Vaccine Aged Out No l onger eligible based on patient's age to complete [...] Tomogra phy 02/24/2025 11:3 8 AM EDT Addenda Addendum by Andre Katz MD on 03/03/2025 3:01 PM EDT This patient's LDCT for lung cancer screening completed on 02/19/2025 was reviewed with the multidisciplinary lung cancer screening team. ??Given the stability of the nodules compared to previous scans, in accordance with LUNG RADS Guidelines, this scan will be downgraded to a Rad 2. ??This patient will be scheduled for a follow-up LDCT in January 2026. -------- ADDENDUM -------- Dictated By: Andre Katz Dictated Date: 03/03/2025 14:59 ET Assigned Physician: Andre Katz Reviewed and Electronically Signed By: Andre Katz Signed Date: 03/03/2025 15:01 ET Workstation ID: [id number] Transcribed By: Self Edit Transcribed Date: 03/03/2025 14:59 ET Impressions 02/24/2025 12:01 PM EDT New 1.5 cm nodule with central coarse calcification is nonspecific but could represent hamartoma. ??Recommend PET/CT. There is also slight increase in size of the fissural nodules. ASSESSMENT: LungRADS [id number]: Suspicious - Chest CT with or without [...] Signed Date: 02/24/2025 12:01 ET Workstation ID: [id number] Transcribed By: Self Edit Transcribed Date: 02/24/2025 [...] size of the fissural nodules. ASSESSMENT: LungRADS [id number]: Suspicious - Chest CT with or without [...] -------- FINAL REPORT -------- Dictated By: Andre Ktaz Dictated Date: 02/24/2025 11:38 ET Assigned Physician: Andre Katz Reviewed and Electronically Signed By: Andre Katz Signed Date: 02/24/2025 12:01 ET Workstation ID: [id number] Transcribed By: Self Edit Transcribed Date: 02/24/2025 11:43 ET Result [facility] Gustavo Sherwood MD IMG CT PROCEDURES Edited Result - Final * Abdominal Aortic Aneurysm Screen (03/05/2024) [facility] Abdominal Aortic Aneurysm (AAA) Screening abstracted, no interpretation Anatomical Region Laterality Modality Other Result [facility] Provider HEALTH MAINTENANCE Final Result * Falls Risk Assessment (02/16/2024) [facility] Falls Risk Assessment abstracted Result [facility] HEALTH MAINTENANCE Final Result * Depression Screening (02/16/2024) [facility] Depression Screening abstracted Result [facility] Provider HEALTH MAINTENANCE Final Result * Annual BMP Blood Test (09/15/2023) [facility] Annual BMP Blood Test abstracted Result [facility] HEALTH MAINTENANCE Final Result * Lipid panel (05/29/2023) [facility] LDL/HDL Ratio 3 0 - 4 Triglycerides 71 0 - 150 mg/dL Cholesterol 148 0 - 200 mg/dL HDL 58 >=40 mg/dL LDL Cholesterol 76 0 - 100 mg/dL Blood Venous blood specimen / Unknown Result [facility] Provider LAB BLOOD ORDERABLES Katie l Result * Hepatitis C Screening (03/20/2019) [facility] Hepatitis C Screening abstracted Result [facility] Provider HEALTH MAINTENANCE Final Result from Last 3 Months or Most Recently Relevant to Health Maintenance Insurance MEDICARE [place]ICAID - [place] Advance Directives Documents on File Type Date Recorded Patient Chair Caner Expl anation Health Care Decision (hx) 09/18/2021 [...] (hx) 09/16/2021 AD RUIZ DIRECTIVE Care Teams Entomology Teacher Relationship Specialty Start Date End Date Marc Taylor MD [address] [place] [address] PCP - General Internal Medicine 12/04/18
--- OUTSIDE RECORDS SUMMARY | 2025-03-24 13:58 | XMS_ITS | Clinical Summary ---
Author Organization [facility] Address [address] [phone] Phone Care Team Providers Care Steam Box Tender Name Role Phone Marc Taylor MD Primary Care Provider [phone] Allergies No known active allergies Medications atorvastatin [...] 06/02/2008 12/15/19 24 Overview (12/15/2023): Sees Dr. Vance Raffi [place] Immunizations Immunization Administration Dates Next Due Influenza Split High [...] Office Visit [facility] [address] [phone] Olive Bennett ARNP [address] [phone] Health Maintenance Due Date Last Done Comments Colorectal Cancer Screening: Annual FOBT 2003 Colorectal Cancer Screening: Colonoscopy 2003 Colorectal Cancer Screening: Sigmoidoscopy 2003 Pneumococcal Vaccine: 50+ Years (3 of 3 - PPSV23, PCV20 or PCV21) 12/08/2022 10/13/2022, 05/04/2012 Influenza Vaccine (Season Ended) 2025 10/13/2022, 10/13/2022, 08/19/2021, Additional history exists Hepatitis B Vaccine Aged Out No longe r eligible based on patient's age to complete this topic Insurance Medicare Medicaid [place] Medicare Medicaid [place] Care Teams Steam Box Tender Relationship Specialty Start Date End Date Marc Taylor MD [address] [place] [id number] PCP - General Internal Medicine 12/15/23
== END 2025-03-24 11:53 | disposition home or self-care (01) ==
LOC: HO.PMC 11:35
PROVIDERS: PCP Internal Medicine; Visit Provider Anesthesiology
DX: G89.4 Chronic pain syndrome (principal); G56.22 Lesion of ulnar nerve, left upper limb; M50.30 Other cervical disc degeneration, unspecified cervical region; Z79.891 Long term (current) use of opiate analgesic; M51.369 Other intervertebral disc degeneration, lumbar region without mention of lumbar back pain or lower extremity pain; M54.16 Radiculopathy, lumbar region; M47.816 Spondylosis without myelopathy or radiculopathy, lumbar region; R07.9 Chest pain, unspecified; G47.00 Insomnia, unspecified; G58.8 Other specified mononeuropathies; M54.12 Radiculopathy, cervical region
CPT/HCPCS: 99213

== ENCOUNTER → 2025-03-24 11:34 | Outpatient (BNVA) | payer OTHER, MEDICARE, MEDICAID, SELFPAY | PROVIDERS: PCP Internal Medicine; Visit Provider Anesthesiology | DX: G89.4 Chronic pain syndrome (principal); G56.22 Lesion of ulnar nerve, left upper limb; M50.30 Other cervical disc degeneration, unspecified cervical region; M51.369 Other intervertebral disc degeneration, lumbar region without mention of lumbar back pain or lower extremity pain; M47.26 Other spondylosis with radiculopathy, lumbar region; R07.9 Chest pain, unspecified; G47.00 Insomnia, unspecified; G58.8 Other specified mononeuropathies; M54.12 Radiculopathy, cervical region; Z79.891 Long term (current) use of opiate analgesic | CPT/HCPCS: 99212 ==

== ENCOUNTER 2025-05-28 11:28 | Outpatient (AMB) | payer OTHER, SELFPAY ==
[2025-05-28 11:45] VITALS: BP 115/63; PULSE 67; RESP 18; O2SAT 96
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
--- OUTSIDE RECORDS SUMMARY | 2025-05-28 12:17 | XMS_ITS | Clinical Summary ---
Author Organization [facility] Address [address] [address] Phone Care Team Providers Care Cloth Seconds Sorter Name Role Phone Marc Taylor MD Primary Care Provider [phone] Allergies No known active allergies Medications atorvastatin [...] 24 Overview (12/15/2023): Sees Dr. Vance Raffi [place] Immunizations Immunization Administration Dates Next Due Influenza [...] Office Visit [facility] [address] [address] Olive Bennett ARNP [address] [address] Health Maintenance Due Date Last Done Comments Colorectal Cancer Screening: Annual FOBT 2003 Colorectal Cancer Screening: Colonoscopy 2003 Colorectal Cancer Screening: Sigmoidoscopy 2003 Pneumococcal Vaccine: 50+ Years (3 of 3 - PCV20 or PCV21) 12/08/2022 10/13/2022, 05/04/2012 Influenza Vaccine (#1) 2025 2, 10/13/2022, 08/19/2021, Additional history exists Hepatitis B Vaccine Aged Out No longe r eligible based on patient's age to complete this topic Insurance Medicare Medicaid [place] Medicare Medicaid [place] Care Teams Cloth Seconds Sorter Relationship Specialty Start Date End Date Marc Taylor MD [address] [address] PCP - General Internal Medicine 12/15/23
--- OUTSIDE RECORDS SUMMARY | 2025-05-28 12:17 | XMS_ITS | Clinical Summary ---
Author Organization 175 [facility] Address [address] [place] [address] Phone Care Team Providers Care Private Equity Associate Name Role Phone Marc Taylor MD Primary Care Provider [phone] Allergies Active Allergy Reactions Criticality Noted Date [...] 4 Active suvorexant (Belsomra) 20 mg tablet 4 Active pregabalin (LYRICA) 300 mg capsule [...] NEEDED FOR WHEEZING 1 Active medical marijuana CATH LAB med Active ipratropium-albu teroL (DUONEB) 0.5-2.5 mg/3 [...] s:Chronic obstructive pulmonary disease, unspecified COPD type ([facility] V24, [facility] V28) USE DIRECTED PER PACKAGE LABELING 53 each 4 Active Additional Information Patient not taking.Reported on 05/15/2025 atorvastatin (LIPITOR) 40 mg tablet TAKE 1 TABLET BY MOUTH EVERY DAY 90 tablet 2 5 Active cetirizine (ZyrTEC) 10 mg tablet TAKE 1 TABLET BY MOUTH EVERY DAY 90 tablet 1 5 Active cyanocobalamin (VITAMIN B-12) 1,000 mcg tablet TAKE 1 TABLET BY MOUTH 2 TIMES DAILY 180 tablet 1 5 Active buPROPion SR (WELLBUTRIN SR) 150 mg 12 hr tablet TAKE 1 TABLET BY MOUTH TWICE A DAY 90 tablet 3 5 Active Hospital, Clinic, or Other Facility Administered Medication Ordered Dose Route Frequency Start Date End Date Status ipratropium-albuteroL (DUONEB) 0.5-2.5 mg/3 mL nebulizer solution 3 mLIndications:Chronic obstructive pulmonary disease, unspecified COPD type ([facility] V24, [facility] V28) 3 mL nebu Every 6 hours PRN 10/18/2024 Active Active Problems Problem Noted Date Diagnosed Date Chronic kidney disease, stage 3a ([facility] V24, [facility] [place] V28) 11/22/2024 Chronic low back pain 11/11/2024 Cervical stenosis [...] foods. He believes he saw ENT on [facility] and had a scope procedure done. Mr. Gautam has severe C4-5, C5-6 central stenosis on C/S MRI 08/21/24 [facility], Dr. Castro is offering patient C4-5, [...] with risk of stroke (prior TIA/stroke) or MD, damage to nerve or spinal cord causing [...] 12/18/2017 COPD (chronic obstructive pu lmonary disease) ([facility] V24, [facility] V28) 12/13/2017 Assessment & Plan (04/15/2025 12:07 PM EDT): Stable on Trelegy inhaler Orders: CBC and differential; Future Comprehensive metabolic panel; Future Lipid panel with reflex to direct LDL; Future Thyroid stimulating hormone; Future Allergic rhinitis 09/22/2017 Anxiety 09/22/2017 Assessment & Plan (04/15/2025 12:07 PM EDT): Stable on Zoloft. Orders: CBC and differential; Future Comprehensive metabolic panel; Future Lipid panel with reflex to direct LDL; Future Thyroid stimulating hormone; Future Ambulatory referral to Talkiatry; Future Cannabis abuse 09/11/2015 Overview (09/13/2024): PERMANENT MARIJUANA CARD DROPPED OFF TODAY 09/16/2015. REGISTRATION#[id number]. EXPIRES 09/08/2018TEMPORARY CARD REGISTRATION#[id number] EXPIRES 10/19/2015 Chronic radicular cervical pain 06/02/2008 Overview (09/13/2024): S/p MRI x 2 , s/p N-S appts. Radiates into rt. Arm, narcotics since 1999 Depression 06/02/2008 Overview (09/13/2024): Sees Dr. Mayer [facility] Assessment & Plan (04/15/2025 12:07 PM EDT): Orders: Ambulatory referral to Talkiatry; Future Essential hypertension, benign 06/02/2008 Encounters Date Type Department Care Team Description 05/15/2025 11:30 AM EDT Procedure visit Pulmon[address] [phone] Abelardo Conteh MD Chronic obstructive pulmonary disease, unspecified COPD type ([facility] V24, [facility] V28) 05/15/2025 10:45 AM EDT Office Visit [address] [phone] Abelardo Conteh MD Chronic obstructive pulmonary disease, unspecified COPD type ([facility] V24, [facility] V28) (Primary Dx); BRETT (obstructive sleep apnea) 04/25/2025 Telephone Internal Medicine [address] [phone] Ry Delgado [place] 04/15/2025 11:15 AM EDT Office Visit Internal Medicine [address] [phone] Marc Taylor MD Primary hypertension (Primary Dx); Anxiety; Hypercholesterolemia; Other emphysema ([facility] V24, [facility] V28); Current mild episode of major depressive disorder, unspecified whether recurrent ([facility] V24) 04/15/2025 Telephone Internal Medicine [address] [phone] Marc Taylor MD Form: FMLA from Last 3 Months Immunizations Name Administration [...] 1999 COPD (chronic obstructive pu lmonary disease) ([facility] V24, [facility] V28) 12/13/2017 DX:COPD (chronic o bstructive pulmonary disease) ([facility]); COMMENT: Dr. Conteh, Severe emphysema Depression 06/02/2008 DX:Depression; C OMMENT: Sees Dr. Moreno [place] Erectile dysfunction 06/26/2018 DX:Erectile dysfunction Hyperlipidemia 06/26/2018 DX:Hyperlipidemi a Insomnia 12/18/2017 DX:Insomnia Nicotine use disorder 06/26/2018 DX:Nicotin e use disorder Weakness of both arms DX:Weaknes s of both arms Memory changes DX:Memory change s Essential (primary) hypertension DX:Essential (primary) hypertension Perforated duodenal ulcer ([facility] [place] V24, [facility] V28) 09/15/2021 DX:Perforated duodenal ulcer ([facility]); COMMENT: diagnostic laparotomy with oversewing of perforated duodenal ulcer with a Pa patch, Dr. Biswas Hiatal hernia with gastroeso phageal reflux 05/26/2022 DX:Hiatal hernia with gastroesophageal reflux CKD (chronic kidney disease) stage 3, GFR 30-59 ml/min ([facility] V24, [facility] V28) DX:CKD (chronic kidney disea se) stage 3, GFR 30-59 ml/min ([facility]) CVA (cerebral vascular accid ent) ([facility] V24, [facility] V28) 02/2024 DX:CVA (cerebral vascular a ccident) ([facility]); COMMENT: TIA 2021 Family History Medical [...] Sign Reading Time Taken Comments Blood Pressure 126/56 05/15/2025 10:56 AM EDT Pulse 68 05/15/2025 10:56 AM EDT Temperature 36.3 C (97.3 F) 05/15/2025 10:56 AM EDT Respiratory Rate 20 05/15/2025 10:56 AM EDT Oxygen Saturation 96% 05/15/2025 10:56 AM EDT Inhaled Oxygen Concentration - - Weight 80 kg (176 lb 6.4 oz) 05/15/2025 10:56 AM EDT Height 177.8 cm (5' 10 ) 05/15/2025 10:56 AM EDT Body Mass Index 25.31 05/15/2025 10:56 AM EDT Plan of Treatment Upcoming Encounters Date Type Department Care Team (Late st Contact Info) Description 10/17/2025 11:30 AM EST Office Visit Internal Medicine - [place] [address] [phone] Marc Taylor MD [address] [address] 11/25/2025 11:30 AM EST Office Visit Pulmonolgy - [place] [address] [phone] Abelardo Conteh MD 175 [facility] [address] [place] [address] Health Maintenance Due Date Last Done Comments Hepatitis A Vaccines (1 of 2 - Risk 2-dose series) 1973 Zoster Vaccines (1 of 2) 1973 RSV Immunization Adult Patients (1 - Risk 60-74 years 1-dose series) 2014 DTaP,Tdap,and Td Vaccines (3 - Td or Tdap) 09/10/2019 09/10/2009, 08/02/2008 COVID-19 Vaccine (2 - Pfizer risk series) 04/06/2021 03/16/2021 Colorectal Cancer Screening: Colonoscopy 10/31/2022 Social Influencers of Health Screening 10/31/2022 Influenza Vaccine (Season Ended) 2025 10/13/2022, 08/19/2021, 09/11/2015, Additional history exists Depression Screening 04/15/2026 04/15/2025, 02/16/20 24 Falls Risk Assessment 04/15/2026 04/15/2025, 024 Medicare Annual Wellness Visit 04/15/2026 04/15/2025 Hypertension/CHF/CAD Annual BMP Blood Test 04/24/2026 04/24/2025, 09/15/2023 Pneumococcal Vaccine: 50+ Years (3 of 3 - PCV20 or PCV21) 10/13/2027 10/13/2022, 05/04/2012 Cholesterol Screening (Lipid Panel) 04/24/2030 04/24/2025, 05/29/2023 Hepatitis C Screening Completed 03/20/2019 Abdominal [...] Procedure Name Priority Date/Time Associated Diagnosis Comments SIX MINUTE WALK TEST Routine 05/15/2025 1:32 PM EDT Chronic obstructive pulmonary disease, unspecified COPD type (CMS/HCC V24, CMS/HCC V28) CBC WITH AUTO DIFFERENTIAL Routine 04/24/2025 11:27 AM EDT Primary hypertension Anxiety Hypercholesterolemi a Other emphysema (CMS/HCC V24, CMS/HCC V28) CBC AND DIFFERENTIAL Routine 04/24/2025 11:27 AM EDT Primary hypertension Anxiety Hypercholesterolemi a Other emphysema (CMS/HCC V24, CMS/HCC V28) COMPREHENSIVE METABOLIC PANEL Routine 04/24/2025 11:27 AM EDT Primary hypertension Anxiety Hypercholesterolemi a Other emphysema (CMS/HCC V24, CMS/HCC V28) LIPID PANEL WITH REFLEX TO DIRECT LDL Routine 04/24/2025 11:27 AM EDT Primary hypertension Anxiety Hypercholesterolemi a Other emphysema (CMS/HCC V24, CMS/HCC V28) THYROID STIMULATING HORMONE Routine 04/24/2025 11:27 AM EDT Primary hypertension Anxiety Hypercholesterolemi a Other emphysema (CMS/HCC V24, CMS/HCC V28) ABDOMINAL AORTIC ANEURYSM SCRREN Routine 03/05/2024 DEPRESSION SCREENING Routine 02/16/2024 FALLS RISK ASSESSMENT Routine 02/16/2024 HEPATITIS C SCREENING Routine 03/20/2019 from Last 3 Months or Most Recently Relevant to Health Maintenance Results * 6 minute walk test (05/15/2025 1:32 PM EDT) Impressions Abelardo Conteh MD - 05/15/2025 1:32 PM EDT Walked six minutes covering (152m/500ft) without Leg Fatigue, Mild SOB Lowest oxygen saturation was 93%. Returned to PFT lab for Rest & Recovery. After 1 min RaSpO2 = 99% HR = 77; After 2 min RaSpO2 = 99% HR = 64. No indication for supplemental Oxygen for activity. us Abelardo Conteh MD IN CLINIC/BEDSIDE ORDERABLES Fin al Result * Lipid panel with reflex to direct LDL (04/24/2025 11:27 AM EDT) Cholesterol 143 0 - 200 mg/dL LAB CHEMISTRY METHOD 04/24/2025 3:32 PM EDT [facility] Triglycerides 71 0 - 150 mg/dL LAB CHEMISTRY METHOD 04/24/2025 3:32 PM EDT [facility] HDL 71 >=40 mg/dL LAB CHEMISTRY METHOD 04/24/2025 3:32 PM EDT [facility] LDL Calculated 58 0 - 100 mg/dL LAB CHEMISTRY METHOD 04/24/2025 3:32 PM EDT [facility] VLDL Cholesterol Jose Miguel 14.2 mg/dL LAB CHEMISTRY METHOD 04/24/2025 3:32 PM T [facility] Non HDL Chol. (LDL+VLDL) 72 <145 mg/dL LAB CHEMISTRY METHOD 04/24/2025 3:32 PM EDT [facility] Chol/HDL Ratio 2.0 0.0 - 4.4 LAB CHEMISTRY METHOD 04/24/2025 3:32 PM T [facility] Blood Venous blood specimen / Unknown Venipuncture / Unknown 04/24/2025 11:27 AM EDT 04/24/2025 11:27 AM EDT Marc Taylor MD LAB BLOOD ORDERABLES Final Resul t [facility] [address] [place] [address], * (ABNORMAL) CBC auto differential (04/24/2025 11:27 AM EDT) [facility] Signature WBC 7.7 4.8 - 10.8 K/mcL LAB HEMETOLOGY METHOD 04/24/2025 2:16 PM EDT [facility] RBC 4.80 4.50 - 5.50 M/mcL LAB HEMETOLOGY METHOD 04/24/2025 2:16 PM EDT [facility] Hemoglobin 14.5 13.5 - 17.5 g/dL LAB HEMETOLOGY METHOD 04/24/2025 2:16 PM EDT [facility] Hematocrit 45.2 42.0 - 54.0 % LAB HEMETOLOGY METHOD 04/24/2025 2:16 PM EDT [facility] MCV 95.2 79.0 - 98.0 FL LAB HEMETOLOGY METHOD 04/24/2025 2:16 PM EDT [facility] MCH 30.5 27.0 - 32.0 pcg LAB HEMETOLOGY METHOD 04/24/2025 2:16 PM EDT [facility] MCHC 32.1 32.0 - 37.0 g/dL LAB HEMETOLOGY METHOD 04/24/2025 2:16 PM EDT [facility] RDW 15.2(H) 11.0 - 15.0 % LAB HEMETOLOGY METHOD 04/24/2025 2:16 PM EDT [facility] Platelets 276 130 - 400 K/mcL LAB HEMETOLOGY METHOD 04/24/2025 2:16 PM EDT [facility] MPV 10.7 7.0 - 11.0 FL LAB HEMETOLOGY METHOD 04/24/2025 2:16 PM EDT [facility] NRBC 0.0 <1.0 % LAB HEMETOLOGY METHOD 04/24/2025 2:16 PM EDT [facility] NRBC Absolute 0.00 <0.10 K/mcL LAB HEMETOLOGY METHOD 04/24/2025 2:16 PM [facility] Neutrophils Relative 60.4 % LAB HEMETOLOGY METHOD 04/24/2025 2:16 PM [facility] Lymphocytes Relative 26.6 % LAB HEMETOLOGY METHOD 04/24/2025 2:16 PM [facility] Monocytes Relative 8.9 % LAB HEMETOLOGY METHOD 04/24/2025 2:16 PM [facility] Eosinophils Relative 2.7 % LAB HEMETOLOGY METHOD 04/24/2025 2:16 PM [facility] Basophils Relative 1.0 % LAB HEMETOLOGY METHOD 04/24/2025 2:16 PM [facility] Immature Granulocytes Relative 0.4 % LAB HEMETOLOGY METHOD 04/24/2025 2:16 PM [facility] Neutrophils Absolute 4.63 1.50 - 7.00 K/mcL LAB HEMETOLOGY METHOD 04/24/2025 2:16 PM [facility] Lymphocytes Absolute 2.04 1.00 - 5.00 K/mcL LAB HEMETOLOGY METHOD 04/24/2025 2:16 PM [facility] Monocytes Absolute 0.68 0.20 - 1.00 K/mcL LAB HEMETOLOGY METHOD 04/24/2025 2:16 PM [facility] Eosinophils Absolute 0.21 0.00 - 0.50 K/mcL LAB HEMETOLOGY METHOD 04/24/2025 2:16 PM [facility] Basophils Absolute 0.08 0.00 - 0.20 K/mcL LAB HEMETOLOGY METHOD [facility]24[facility] Immature Granulocytes Absolute 0.03 0.00 - 0.03 K/mcL LAB HEMETOLOGY METHOD 04/24/2025 2:16 PM EDT [facility] Blood Venous blood specimen / Unknown Venipuncture / Unknown 04/24/2025 11:27 AM EDT 04/24/2025 11:27 AM EDT us Marc Taylor MD LAB BLOOD ORDERABLES Final Resul t Performing Organization Address [facility]/ZIP Co de Phone Number [facility] [address] [place] [address], [place] [phone] * Thyroid stimulating hormone (04/24/2025 11:27 AM EDT) TSH 1.26 0.40 - 4.00 mcIU/mL LAB CHEMISTRY METHOD 04/24/2025 4:17 PM EDT [facility] Blood Venous blood specimen / Unknown Venipuncture / Unknown 04/24/2025 11:27 AM EDT 04/24/2025 11:27 AM EDT us Marc Taylor MD LAB BLOOD ORDERABLES Final Resul t Performing Organization Address [facility] Co de Phone Number [facility] [address] [place] [address], [place] [phone] * (ABNORMAL) Comprehensive metabolic panel (04/24/2025 11:27 AM EDT) Sodium 140 133 - 145 mmol/L LAB CHEMISTRY METHOD 04/24/2025 3:32 PM EDT [facility] Potassium 5.1 3.5 - 5.5 mmol/L LAB CHEMISTRY METHOD 04/24/2025 3:32 PM EDT [facility] Chloride 109 96 - 110 mmol/L LAB CHEMISTRY METHOD 04/24/2025 3:32 PM EDT [facility] CO2 28 21 - 32 mmol/L LAB CHEMISTRY METHOD 04/24/2025 3:32 PM [facility] Anion Gap 3 3 - 11 LAB CHEMISTRY METHOD 04/24/2025 3:32 PM [facility] Glucose 86 70 - 100 mg/dL LAB CHEMISTRY METHOD 04/24/2025 3:32 PM [facility] BUN 21 5 - 25 mg/dL LAB CHEMISTRY METHOD 04/24/2025 3:32 PM [facility] Creatinine 1.15 0.70 - 1.30 mg/dL LAB CHEMISTRY METHOD 04/24/2025 3:32 PM [facility] eGFR 68 >=60 mL/min/1. 73m2 LAB CHEMISTRY METHOD 04/24/2025 3:32 PM [facility] Comment:Calculation based on the Chronic Kidney Disease Epidemiology Collaboration (CKD-EPI) equation refit without adjustment for race. BUN/Creatinine Ratio 18.3 LAB CHEMISTRY METHOD 04/24/2025 3:32 PM [facility] Calcium 9.1 8.5 - 10.5 mg/dL LAB CHEMISTRY METHOD 04/24/2025 3:32 PM [facility] AST (SGOT) 27 10 - 42 unit/L LAB CHEMISTRY METHOD 04/24/2025 3:32 PM [facility] ALT (SGPT) 31 10 - 60 unit/L LAB CHEMISTRY METHOD 04/24/2025 3:32 PM [facility] Alkaline Phosphatase 122(H) 42 - 121 unit/L LAB CHEMISTRY METHOD 04/24/2025 3:32 PM [facility] Total Protein 7.4 6.0 - 8.0 g/dL LAB CHEMISTRY METHOD 04/24/2025 3:32 PM [facility] Albumin 3.9 3.2 - 5.0 g/dL LAB CHEMISTRY METHOD 04/24/2025 3:32 PM [facility] Total Bilirubin 0.6 0.0 - 1.4 mg/dL LAB CHEMISTRY METHOD 04/24/2025 3:32 PM EDT [facility] Blood Venous blood specimen / Unknown Venipuncture / Unknown 04/24/2025 11:27 AM EDT 04/24/2025 11:27 AM EDT Marc Taylor MD LAB BLOOD ORDERABLES Final Resul t [facility] [address] [place] [address], [place] [phone] * Abdominal Aortic Aneurysm Screen (03/05/2024) Pathologist [facility] Abdominal Aortic Aneurysm (AAA) Screening abstracted, no interpretation Anatomical Region Laterality Modality Other [facility] Madelyn [employer] Final Result * Falls Risk Assessment (02/16/2024) [facility] Falls Risk Assessment abstracted Result [facility] Mad[place] [employer] Final Result * Depression Screening (02/16/2024) Pathologist [facility] Depression Screening abstracted Result [facility] [place] [employer] Final Result * Hepatitis C Screening (03/20/2019) Pathologist [facility] Hepatitis C Screening abstracted [facility] Provider HEALTH MAINTENANCE Final Result from Last 3 Months or Most Recently Relevant to Health Maintenance Insurance MEDICARE [place] - [place] Advance Directives Documents on File Type Date Recorded Patient Supervisor Net Making Expl anation Health Care Decision (hx) 09/18/2021 [...] (hx) 09/16/2021 AD RUIZ DIRECTIVE Care Teams Private Equity Associate Relationship Specialty Start Date End Date Marc Taylor MD [address] [place] [id number] PCP - General Internal Medicine 12/04/18
== END 2025-05-28 11:59 | disposition home or self-care (01) ==
LOC: HO.PMC 11:28
PROVIDERS: PCP Internal Medicine; Visit Provider Anesthesiology
DX: G56.22 Lesion of ulnar nerve, left upper limb (principal); M50.30 Other cervical disc degeneration, unspecified cervical region; M51.369 Other intervertebral disc degeneration, lumbar region without mention of lumbar back pain or lower extremity pain; Z79.891 Long term (current) use of opiate analgesic; G89.4 Chronic pain syndrome; M54.16 Radiculopathy, lumbar region; M47.816 Spondylosis without myelopathy or radiculopathy, lumbar region; R07.9 Chest pain, unspecified; G47.00 Insomnia, unspecified; G58.8 Other specified mononeuropathies; M54.12 Radiculopathy, cervical region
CPT/HCPCS: 99213

== ENCOUNTER → 2025-05-28 11:28 | Outpatient (BNVA) | payer OTHER, MEDICARE, MEDICAID, SELFPAY | PROVIDERS: PCP Internal Medicine; Visit Provider Anesthesiology | DX: Z51.81 Encounter for therapeutic drug level monitoring (principal); M50.30 Other cervical disc degeneration, unspecified cervical region; M51.369 Other intervertebral disc degeneration, lumbar region without mention of lumbar back pain or lower extremity pain; M47.26 Other spondylosis with radiculopathy, lumbar region; M47.22 Other spondylosis with radiculopathy, cervical region; G56.22 Lesion of ulnar nerve, left upper limb; G58.8 Other specified mononeuropathies; R07.9 Chest pain, unspecified; G47.00 Insomnia, unspecified; G89.4 Chronic pain syndrome; Z79.891 Long term (current) use of opiate analgesic | CPT/HCPCS: 99212 ==

== ENCOUNTER 2025-07-17 11:28 | Outpatient (AMB) | payer OTHER, SELFPAY ==
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
[2025-07-17 11:36] VITALS: BP 95/54; PULSE 90; RESP 18; O2SAT 95
== END 2025-07-17 11:49 | disposition home or self-care (01) ==
LOC: HO.PMC 11:28
PROVIDERS: PCP Internal Medicine; Visit Provider Anesthesiology
DX: R07.9 Chest pain, unspecified (principal); G47.00 Insomnia, unspecified; M54.12 Radiculopathy, cervical region
CPT/HCPCS: 99213

== ENCOUNTER → 2025-07-17 11:28 | Outpatient (BNVA) | payer OTHER, MEDICARE, MEDICAID, SELFPAY | PROVIDERS: PCP Internal Medicine; Visit Provider Anesthesiology | DX: G56.22 Lesion of ulnar nerve, left upper limb (principal); M50.30 Other cervical disc degeneration, unspecified cervical region; M51.369 Other intervertebral disc degeneration, lumbar region without mention of lumbar back pain or lower extremity pain; G89.4 Chronic pain syndrome; M47.816 Spondylosis without myelopathy or radiculopathy, lumbar region; R07.9 Chest pain, unspecified; G47.00 Insomnia, unspecified; G58.8 Other specified mononeuropathies; Z51.81 Encounter for therapeutic drug level monitoring; Z79.891 Long term (current) use of opiate analgesic | CPT/HCPCS: 99212 ==

== ENCOUNTER 2025-08-07 11:04 | Outpatient (AMB) | payer OTHER, SELFPAY ==
[2025-08-07 11:26] VITALS: BP 107/55; PULSE 85; RESP 18
--- NOTE | 2025-08-07 11:26 | MHC.OFFVIS ---
Vital Signs 08/07/25 11:26 Weight 171 lb BP 107/55 L Blood Pressure Location Lt brachial Position Sitting Respiration 18 Pulse 85 Pulse Source Pulse Oximeter Intake Visit Reasons: PILL COUNT Intake Note: pt states that he last took his oxycodone at 7am today 08/07/25. Goldy says he should have 45 pills and he presented with 49. Allergies No Known Allergies Allergy (Verified 08/07/25 11:25) HPI Comments Details: Dinh presents to the office for follow up chronic pain and chronic opioid therapy management. His pill count is correct today. He presents today with 49 pills in his possession. His supposed to have 45 pills in his possession. He is taking oxycodone 10 mg 5 pills a day. He reports that gabapentin which was prescribed to him helps him to sleep, however when he takes gabapentin next day he feels disoriented and dizzy, he is unable to function. I will stop gabapentin. His oxycodone is due on 07/2025. Next appointment I will see him in 1 month. Prior: Epidural steroid injection cervical spine 11/05/2024 -excellent results he continues to express less pain in the cervical spine and better cervical mobility. Pill count today is correct he is not supposed to have any medications in his possession because he ran out of on his prescription. I will see this patient in 3 weeks and we will perform next pill come. PRIOR: diagnostic bilateral L3- L4- L5 MBB performed on 05/16/23. He reports no pain improvement whatsoever. pain after the procedure remained in the range 8/10 to 9.5/10. SCS nevro trial was discussed with the patient. He is not very eager to accept spinal cord stimulator he wants to do the steroid injections in his back. We will schedule it in May. ?He has severe lumbar stenosis.? I recommended him to go back to a neurosurgeon to discuss his spinal stenosis.? However patient adamantly refused to go for consultation with a neurosurgeon.? 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 At multiple intervertebral interval he has ligamentum flavum hypertrophy which could be addressed with MILD procedure. complains on severe pain in neck and severe pain in the back.? He reports pain in the neck radiates into the right upper extremity and pain in the back is not radiating.? He relates his pain to the injuries he sustained while in accident on 09/05. he fell from garbage truck an fell on his back.? About 2 years ago he was on oxycodone about 120 mg a day and the he was more active and able to walk better.? He reports that he had multiple chiropractic manipulations and physical therapy in the past to alleviate his pain and those were not effective, he has home traction unit but it does not alleviate his pain. He takes Lyrica meloxicam Cymbalta phentermine and amitriptyline to help him to sleep at night. [facility] Medical History (Updated 08/29/24 @ 15:52 by Moiz Morales MD) Chronic pain syndrome Spondylosis of lumbar region without myelopathy or radiculopathy Spondylosis, cervical Degenerative disc disease, lumbar Degenerative disc disease, cervical Depression Essential hypertension Chronic radicular cervical pain Allergic rhinitis Anxiety COPD (chronic obstructive pulmonary disease) Insomnia Hyperlipidemia Erectile dysfunction Surgical History H/O shoulder surgery Family History Maternal Grandfather Diabetes Mother Cancer Brother Bladder cancer Breast CA Sister No problems noted. Social History Alcohol intake: never Patient Tobacco Use Status: Current everyday Tobacco user Tobacco use type: Cigarette Cigarettes Per Day: 5 Second Hand Smoke Exposure: No Substance Use Type: Marijuana Review of Systems Const All systems reviewed & are unremarkable except as noted in HPI and below Physical Exam Vital Signs: Last Vital Signs Pulse 85 08/07/25 11:26 Resp 18 08/07/25 11:26 BP 107/55 L 08/07/25 11:26 Const General: in distress severe; No comfortable Resp Effort & Inspection: normal respiratory effort and able to speak in complete sentences Cardio Jugular venous distension: no JVD Back/Spine/Pelvis Other: Loading test is positive bilaterally, tenderness of palpation on paraspinal spinal region lumbar spine Cervical Spine: No cervical ROM normal Thoracic/Lumbar Spine: thoracic and lumbar spine normal to inspection, pain with thoraco-lumbar ROM and thoraco-lumbar ROM limited Extrem Other: Limited mobility of the left upper extremity in the elbow. Severe tenderness on palpation in projection of the medial elbow with pain radiating down to the medial surface of the forearm and into the 5th finger on the left. Psych Appearance: grossly normal Mental Status: mental status grossly normal Speech and movement: Normal speech and movement present Affect: normal affect Attitude: cooperative Thought process: Normal thought process present Thought content: Normal thought content present Insight: Good insight present (Psych) Judgement: Good judgement present (Psych) Assessment & Plan Assessment & Plan (1) Cubital tunnel syndrome on left: Code(s): G56.22 - Lesion of ulnar nerve, left upper limb Category: Medical (2) Degenerative disc disease, cervical: Code(s): M50.30 - Other cervical disc degeneration, unspecified cervical region Category: Medical (3) Degenerative disc disease, lumbar: Code(s): M51.36 - Other intervertebral disc degeneration, lumbar region Category: Medical (4) Chronic pain syndrome: Code(s): G89.4 - Chronic pain syndrome Category: Medical (5) Opiate analgesic contract exists: Code(s): Z79.891 - termite control representative (current) use of opiate analgesic Category: Medical (6) Lumbar radiculopathy: Code(s): M54.16 - Radiculopathy, lumbar region Category: Medical (7) Lumbar spondylosis: Code(s): M47.816 - Spondylosis without myelopathy or radiculopathy, lumbar region Category: Medical (8) Right-sided chest pain: Code(s): R07.9 - Chest pain, unspecified Category: Medical (9) Insomnia: Code(s): G47.00 - Insomnia, unspecified Category: Medical (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 He reports good pain control on current opioid medications he receives 10 mg of oxycodone 5 times a day. Next appointment will be scheduled in 1 month. I will prescribe him his opioid medications on 08/16/25. Gabapentin as prescribed by PCP he needs to discuss termination of this medication with the primary care physician. Cervical interlaminar C6-C7 epidural steroid injection resulted in good pain control. In the past Nevro SCS was offered to treat the lower back pain. Psychological evaluation needs to be completed before trial of Nevro SCS. Medications: Refilled oxycodone Partial Fill upon patient request. 10 mg PO Q4-6H PRN 150 tabs 0RF pain 30 days MDD Five pills a day G89.4 - Chronic pain syndrome, M50.30 - Other cervical disc degeneration, unspecified cervical region, M51.36 - Other intervertebral disc degeneration, lumbar region, Z79.891 - half-way (current) use of opiate analgesic Coding Level of Care Code Est Pt Level 3 (01597) Diagnoses Cubital tunnel syndrome on left G56.22 Degenerative disc disease, cervical M50.30 Degenerative disc disease, lumbar M51.36 Chronic pain syndrome G89.4 Opiate analgesic contract exists Z79.891 Lumbar radiculopathy M54.16 Lumbar spondylosis M47.816 Right-sided chest pain R07.9 Insomnia G47.00 Intercostal neuralgia G58.8 Cervical radiculopathy M54.12
--- OUTSIDE RECORDS SUMMARY | 2025-08-07 15:23 | XMS_ITS ---
Author Name [facility] Organization Unknown Care Team Organization Name Specialty Phone Email Start Date End [facility] 07/16/2025 [facility] 10/04/2022 07/15/20 24
--- OUTSIDE RECORDS SUMMARY | 2025-08-07 15:23 | XMS_ITS | Clinical Summary ---
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 Active ipratropium-albu teroL (DUONEB) 0.5-2.5 mg/3 [...] s:Chronic obstructive pulmonary disease, unspecified COPD type ([facility] V24, [facility] V28) USE DIRECTED PER PACKAGE LABELING 53 [...] mLIndications:Chronic obstructive pulmonary disease, unspecified COPD type ([facility] V24, [facility] V28) 3 mL nebu Every 6 hours PRN 10/18/2024 Active Active Problems Problem Noted Date Diagnosed Date Chronic kidney disease, stage 3a ([facility] V24, [facility] V28) 11/22/2024 Chronic low back pain 11/11/2024 [...] foods. He believes he saw ENT on [facility] and had a scope procedure done. [...] with risk of stroke (prior TIA/stroke) or PA, damage to nerve or spinal cord causing [...] 12/18/2017 COPD (chronic obstructive pu lmonary disease) ([facility] V24, [facility] V28) 12/13/2017 Assessment & Plan (04/15/2025 12:07 [...] PERMANENT MARIJUANA CARD DROPPED OFF TODAY 09/16/2015. REGISTRATION#[id number]. EXPIRES 09/08/2018TEMPORARY CARD REGISTRATION#[id number] EXPIRES 10/19/2015 Chronic radicular cervical pain 06/02/2008 Overview (09/13/2024): S/p MRI x 2 , s/p N-S appts. Radiates into rt. Arm, narcotics since 1999 Depression 06/02/2008 Overview (09/13/2024): Sees Dr. Mayer [facility] Assessment & Plan (04/15/2025 12:07 PM EDT): Orders: Ambulatory referral to Talk[facility]; Future Essential hypertension, benign 06/02/2008 Encounters Date Type Department Care Team Description 06/25/2025 Telephone Internal Medicine - [place] 175 [facility] [address] [place] [id number] Marc Taylor MD 05/15/2025 11:30 AM EDT Procedure visit Pulmonolgy [facility] 175 [facility] [address] [place] [phone] Abelardo Conteh MD Chronic obstructive pulmonary disease, unspecified COPD type ([facility] V24, [facility] V28) 05/15/2025 10:45 AM EDT [facility] [address] [place] [phone] Abelardo Conteh MD Chronic obstructive pulmonary disease, unspecified COPD type ([facility] V24, [facility] V28) (Primary Dx); BRETT (obstructive sleep apnea) from Last 3 Months Immunizations Name Administration [...] 1999 COPD (chronic obstructive pu lmonary disease) ([facility], [facility] V28) 12/13/2017 DX:COPD (chronic o bstructive pulmonary disease) ([facility]); COMMENT: Dr. Conteh, Severe emphysema Depression 06/02/2008 DX:Depression; C OMMENT: Sees Dr. Vance Raffi [place] Erectile dysfunction 06/26/2018 DX:Erectile dysfunction Hyperlipidemia 06/26/2018 DX:Hyperlipidemi a Insomnia 12/18/2017 DX:Insomnia Nicotine use disorder 06/26/2018 DX:Nicotin e use disorder Weakness of both arms DX:Weaknes s of both arms Memory changes DX:Memory change s Essential (primary) hypertension DX:Essential (primary) hypertension Perforated duodenal ulcer ([facility] V24, [facility] V28) 09/15/2021 DX:Perforated duodenal ulcer ([facility]); COMMENT: diagnostic laparotomy with oversewing of perforated duodenal ulcer with a Pa patch, Dr. Biswas Hiatal hernia with gastroeso phageal reflux 05/26/2022 DX:Hiatal hernia with gastroesophageal reflux CKD (chronic kidney disease) stage 3, GFR 30-59 ml/min ([facility] V24, [facility] V28) DX:CKD (chronic kidney disea se) stage 3, GFR 30-59 ml/min ([facility]) CVA (cerebral vascular accid ent) ([facility] V24, [facility] V28) 02/2024 DX:CVA (cerebral vascular a ccident) ([facility]); COMMENT: TIA 2021 Family History Medical History [...] AM EST Office Visit Internal Medicine - [place] [address] [phone] Marc Taylro MD [address] [address] 11/25/2025 11:30 AM EST Office Visit Pulmonolgy - [place] [address] [phone] Abelardo Conteh MD [address] [address] Health Maintenance Due Date Last Done Comments [...] of Health Screening 10/31/2022 Influenza Vaccine (#1) 2025 , 08/19/2021, 09/11/2015, Additional history exists Falls Risk Assessment 04/15/2026 04/15/2025, 024 Medicare Annual Wellness Visit 04/15/2026 04/15/2025 Hypertension/CHF/CAD Annual BMP Blood Test 04/24/2026 04/24/2025, 09/15/2023 Pneumococcal Vaccine: 50+ Years (3 of 3 - PCV20 or PCV21) 10/13/2027 10/13/2022, 05/04/2012 Cholesterol Screening (Lipid Panel) 04/24/2030 04/24/2025, 05/29/2023 Hepatitis C Screening Completed 03/20/2019 Abdominal Aortic Aneurysm (AAA) Screen Completed 03/05/2024, 01/08/2024, 09/15/2021 Depression Screening Completed 04/15/2025, 02/16/20 24 HIB Vaccines Aged Out No longer eligi [...] Chronic obstructive pulmonary disease, unspecified COPD type ([facility] V24, [facility] V28) COMPREHENSIVE METABOLIC PANEL Routine 04/24/2025 11:27 [...] to direct LDL (04/24/2025 11:27 AM EDT) [facility] Signature Cholesterol 143 0 - 200 mg/dL LAB CHEMISTRY METHOD 04/24/2025 3:32 PM EDT [facility] Triglycerides 71 0 - 150 mg/dL LAB CHEMISTRY METHOD 04/24/2025 3:32 PM EDT [facility] HDL 71 >=40 mg/dL LAB CHEMISTRY METHOD 04/24/2025 3:32 PM EDT [facility] LDL Calculated 58 0 - 100 mg/dL LAB CHEMISTRY METHOD 04/24/2025 3:32 PM EDT [facility] VLDL Cholesterol Jose Miguel 14.2 mg/dL LAB CHEMISTRY METHOD 04/24/2025 3:32 PM EDT [facility] Non HDL Chol. (LDL+VLDL) 72 <145 mg/dL LAB CHEMISTRY METHOD 04/24/2025 3:32 PM EDT [facility] Chol/HDL Ratio 2.0 0.0 - 4.4 LAB CHEMISTRY METHOD 04/24/2025 3:32 PM EDT [facility] Blood Venous blood specimen / Unknown Venipuncture / Unknown 04/24/2025 11:27 AM EDT 04/24/2025 11:27 AM EDT us Marc Taylor MD LAB BLOOD ORDERABLES Final Resul t [facility] [address] [place] [address], [place] [phone] * (ABNORMAL) Comprehensive metabolic panel (04/24/2025 11:27 AM EDT) Sodium 140 133 - 145 mmol/L LAB CHEMISTRY METHOD 04/24/2025 3:32 PM [facility] Potassium 5.1 3.5 - 5.5 mmol/L LAB CHEMISTRY METHOD 04/24/2025 3:32 PM [facility] Chloride 109 96 - 110 mmol/L LAB CHEMISTRY METHOD 04/24/2025 3:32 PM T [facility] CO2 28 21 - 32 mmol/L LAB CHEMISTRY METHOD 04/24/2025 3:32 PM [facility] Anion Gap 3 3 - 11 LAB CHEMISTRY METHOD 04/24/2025 3:32 PM [facility] Glucose 86 70 - 100 mg/dL LAB CHEMISTRY METHOD 04/24/2025 3:32 PM [facility] BUN 21 5 - 25 mg/dL LAB CHEMISTRY METHOD 04/24/2025 3:32 PM [facility] Creatinine 1.15 0.70 - 1.30 mg/dL LAB CHEMISTRY METHOD 04/24/2025 3:32 PM [facility] eGFR 68 >=60 mL/min/1. 73m2 LAB CHEMISTRY METHOD 04/24/2025 3:32 PM [facility] Comment:Calculation based on the Chronic Kidney Disease Epidemiology Collaboration (CKD-EPI) equation refit without adjustment for race. BUN/Creatinine Ratio 18.3 LAB CHEMISTRY METHOD 04/24/2025 3:32 PM [facility] Calcium 9.1 8.5 - 10.5 mg/dL LAB CHEMISTRY METHOD 04/24/2025 3:32 PM [facility] AST (SGOT) 27 10 - 42 unit/L LAB CHEMISTRY METHOD 04/24/2025 3:32 PM [facility] ALT (SGPT) 31 10 - 60 unit/L LAB CHEMISTRY METHOD 04/24/2025 3:32 PM [facility] Alkaline Phosphatase 122(H) 42 - 121 unit/L LAB CHEMISTRY METHOD 04/24/2025 3:32 PM [facility] Total Protein 7.4 6.0 - 8.0 g/dL LAB CHEMISTRY METHOD 04/24/2025 3:32 PM [facility] Albumin 3.9 3.2 - 5.0 g/dL LAB CHEMISTRY METHOD 04/24/2025 3:32 PM [facility] Total Bilirubin 0.6 0.0 - 1.4 mg/dL LAB CHEMISTRY METHOD 04/24/2025 3:32 PM [facility] Blood Venous blood specimen / Unknown Venipuncture / Unknown 04/24/2025 11:27 AM EDT 04/24/2025 11:27 AM EDT us Marc Taylor MD LAB BLOOD ORDERABLES Final Resul t [facility] [address] [place] [address], * Abdominal Aortic Aneurysm Screen (03/05/2024) Abdominal Aortic Aneurysm (AAA) Screening abstracted, no interpretation Anatomical Region Laterality Modality Other Historical Provider HEALTH MAINTENANCE Final Result * Falls Risk Assessment (02/16/2024) Pathologist [facility] Falls Risk Assessment abstracted [facility] Provider HEALTH MAINTENANCE Final Result * Depression Screening (02/16/2024) Pathologist [facility] Depression Screening abstracted [facility] Provider HEALTH MAINTENANCE Final Result * Hepatitis C Screening (03/20/2019) Pathologist [facility] Hepatitis C Screening abstracted [facility] Provider HEALTH MAINTENANCE Final Result from Last 3 Months or Most Recently Relevant to Health Maintenance Insurance MEDICARE [place]ICAID - [place] Advance Directives Documents on File Type Date Recorded Patient Dialysis Clinical Manager Expl anation Health Care Decision (hx) 09/18/2021 [...] (hx) 09/16/2021 AD RUIZ DIRECTIVE Care Teams Holter Technician Relationship Specialty Start Date End Date Marc Taylor MD [address] [place] [id number] PCP - General Internal Medicine 12/04/18
--- OUTSIDE RECORDS SUMMARY | 2025-08-07 15:23 | XMS_ITS | Clinical Summary ---
Author Organization [facility] Address [address] [address] Phone Care Team Providers Care Braiding Operator Name Role Phone Marc Taylor MD Primary Care Provider [phone] Allergies No known active allergies Medications atorvastatin [...] 24 Overview (12/15/2023): Sees Dr. Vance Raffi [place] Immunizations Immunization Administration Dates Next Due Influenza [...] Office Visit [facility] [address] [phone] Olive Bennett ARNP [address] [address] Health Maintenance Due Date Last [...] Medicaid [place] Care Teams Braiding Operator Relationship Specialty Start Date End Date Marc Taylor MD [address] [address] PCP - General Internal Medicine 12/15/23
--- OUTSIDE RECORDS SUMMARY | 2025-08-07 15:23 | XMS_ITS ---
Author Organization 175 [facility] Address [address] [place] [address] Phone Care Team Providers Care Fill Manager Name Role Phone Macr Taylor MD Primary Care Provider [phone] Clinic Office Coordinator Care Management Status:Identified (Enrolling) Start date:07/25/2025 Enrollment reason:Identified using claims or encounter data Overview Received call from son - pt dc to home and in need of care. Case Team Name Relationship Phone Adamaris VALLES Upholstery Auto Trimmer(Responsible St aff) [phone] Continued Care and Services Coordination
== END 2025-08-07 11:38 | disposition home or self-care (01) ==
LOC: HO.PMC 11:05
PROVIDERS: PCP Internal Medicine; Visit Provider Anesthesiology
DX: G89.4 Chronic pain syndrome (principal); G56.22 Lesion of ulnar nerve, left upper limb; M50.30 Other cervical disc degeneration, unspecified cervical region; Z79.891 Long term (current) use of opiate analgesic; M51.369 Other intervertebral disc degeneration, lumbar region without mention of lumbar back pain or lower extremity pain; M54.16 Radiculopathy, lumbar region; M47.816 Spondylosis without myelopathy or radiculopathy, lumbar region; R07.9 Chest pain, unspecified; G47.00 Insomnia, unspecified; G58.8 Other specified mononeuropathies; M54.12 Radiculopathy, cervical region
CPT/HCPCS: 99213

== ENCOUNTER → 2025-08-07 11:04 | Outpatient (BNVA) | payer OTHER, MEDICARE, MEDICAID, SELFPAY | PROVIDERS: PCP Internal Medicine; Visit Provider Anesthesiology | DX: G56.22 Lesion of ulnar nerve, left upper limb (principal); M50.30 Other cervical disc degeneration, unspecified cervical region; M51.369 Other intervertebral disc degeneration, lumbar region without mention of lumbar back pain or lower extremity pain; G89.4 Chronic pain syndrome; M47.816 Spondylosis without myelopathy or radiculopathy, lumbar region; R07.9 Chest pain, unspecified; G47.00 Insomnia, unspecified; Z79.891 Long term (current) use of opiate analgesic; Z51.81 Encounter for therapeutic drug level monitoring | CPT/HCPCS: 99212 ==

== ENCOUNTER 2025-09-04 11:49 | Outpatient (AMB) | payer OTHER, SELFPAY ==
[2025-09-04 11:56] VITALS: BP 147/72; PULSE 92; RESP 16; O2SAT 96; BMI 29.3
--- NOTE | 2025-09-04 11:56 | A.OFFVIS_ITS ---
Vital Signs 09/04/25 11:56 Height 5 ft 4 in Weight 171 lb BMI 29.3 BP 147/72 H Blood Pressure Location Rt brachial Position Sitting Respiration 16 Pulse 92 Pulse Source Pulse Oximeter Pulse Oximetry (%) 96 Oxygen Delivery Method Room Air Intake Visit Reasons: Pill Count Intake Note: Patient here for a pill count routine of Oxycodone. Per directions patient should have 55 pills. Patient presented 60 pills. Last took 6am. Licensed Nuclear Control Room Operator Required: No Accompanied by: Self / Same As Patient Allergies No Known Allergies Allergy (Verified 09/04/25 11:58) HPI Comments Details: Dinh presents to the office for follow up chronic pain and chronic opioid therapy management. His pill count is correct today. He presents today with 60 pills in his possession. His supposed to have 55 pills in his possession. He is taking oxycodone 10 mg 5 pills a day. He reported today difficulty sleeping I suggested we may try tizanidine in small doses to help him to sleep at night. I explained to the patient that he can not take 1 or 1 and 1/2 pill at night to begin with, if tolerates those pills okay he can not increase his dose to 2 pills at night. His oxycodone is due on 09/15/25 Next appointment I will see him in 1 month. Prior: Epidural steroid injection cervical spine 11/05/2024 -excellent results he continues to express less pain in the cervical spine and better cervical mobility. Pill count today is correct he is not supposed to have any medications in his possession because he ran out of on his prescription. I will see this patient in 3 weeks and we will perform next pill come. PRIOR: diagnostic bilateral L3- L4- L5 MBB performed on 05/16/23. He reports no pain improvement whatsoever. pain after the procedure remained in the range 8/10 to 9.5/10. SCS nevro trial was discussed with the patient. He is not very eager to accept spinal cord stimulator he wants to do the steroid injections in his back. We will schedule it in May. ?He has severe lumbar stenosis.? I recommended him to go back to a neurosurgeon to discuss his spinal stenosis.? However patient adamantly refused to go for consultation with a neurosurgeon.? 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 At multiple intervertebral interval he has ligamentum flavum hypertrophy which could be addressed with MILD procedure. complains on severe pain in neck and severe pain in the back.? He reports pain in the neck radiates into the right upper extremity and pain in the back is not radiating.? He relates his pain to the injuries he sustained while in accident on 09/05. he fell from garbage truck an fell on his back.? About 2 years ago he was on oxycodone about 120 mg a day and the he was more active and able to walk better.? He reports that he had multiple chiropractic manipulations and physical therapy in the past to alleviate his pain and those were not effective, he has home traction unit but it does not alleviate his pain. He takes Lyrica meloxicam Cymbalta phentermine and amitriptyline to help him to sleep at night. ON LICENSE OF [facility] Medical History (Updated 08/29/24 @ 15:52 by Moiz Morales MD) Chronic pain syndrome Spondylosis of lumbar region without myelopathy or radiculopathy Spondylosis, cervical Degenerative disc disease, lumbar Degenerative disc disease, cervical Depression Essential hypertension Chronic radicular cervical pain Allergic rhinitis Anxiety COPD (chronic obstructive pulmonary disease) Insomnia Hyperlipidemia Erectile dysfunction Surgical History H/O shoulder surgery Family History Maternal Grandfather Diabetes Mother Cancer Brother Bladder cancer Breast CA Sister No problems noted. Social History Alcohol intake: never Patient Tobacco Use Status: Current everyday Tobacco user Tobacco use type: Cigarette Cigarettes Per Day: 5 Second Hand Smoke Exposure: No Substance Use Type: Marijuana Review of Systems Const All systems reviewed & are unremarkable except as noted in HPI and below Physical Exam Vital Signs: Last Vital Signs Pulse 92 09/04/25 11:56 Resp 16 09/04/25 11:56 BP 147/72 H 09/04/25 11:56 Pulse Ox 96 09/04/25 11:56 Oxygen Delivery Method Room Air 09/04/25 11:56 BMI result Body Mass Index 29.3 Const General: in distress severe; No comfortable Resp Effort & Inspection: normal respiratory effort and able to speak in complete sentences Cardio Jugular venous distension: no JVD Back/Spine/Pelvis Other: Loading test is positive bilaterally, tenderness of palpation on paraspinal spinal region lumbar spine Cervical Spine: No cervical ROM normal Thoracic/Lumbar Spine: thoracic and lumbar spine normal to inspection, pain with thoraco-lumbar ROM and thoraco-lumbar ROM limited Extrem Other: Limited mobility of the left upper extremity in the elbow. Severe tenderness on palpation in projection of the medial elbow with pain radiating down to the medial surface of the forearm and into the 5th finger on the left. Psych Appearance: grossly normal Mental Status: mental status grossly normal Speech and movement: Normal speech and movement present Affect: normal affect Attitude: cooperative Thought process: Normal thought process present Thought content: Normal thought content present Insight: Good insight present (Psych) Judgement: Good judgement present (Psych) Assessment & Plan Assessment & Plan (1) Cubital tunnel syndrome on left: Code(s): G56.22 - Lesion of ulnar nerve, left upper limb Category: Medical (2) Degenerative disc disease, cervical: Code(s): M50.30 - Other cervical disc degeneration, unspecified cervical region Category: Medical (3) Degenerative disc disease, lumbar: Code(s): M51.36 - Other intervertebral disc degeneration, lumbar region Category: Medical (4) Chronic pain syndrome: Code(s): G89.4 - Chronic pain syndrome Category: Medical (5) Opiate analgesic contract exists: Code(s): Z79.891 - clinical data associate (current) use of opiate analgesic Category: Medical (6) Lumbar radiculopathy: Code(s): M54.16 - Radiculopathy, lumbar region Category: Medical (7) Lumbar spondylosis: Code(s): M47.816 - Spondylosis without myelopathy or radiculopathy, lumbar region Category: Medical (8) Right-sided chest pain: Code(s): R07.9 - Chest pain, unspecified Category: Medical (9) Insomnia: Code(s): G47.00 - Insomnia, unspecified Category: Medical (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 He reports good pain control on current opioid medications he receives 10 mg of oxycodone 5 times a day. He reports difficulty sleeping at night. I decided to try tizanidine. His heart rate today is 88 bpm. Therefore tizanidine will all be be helpful for his heart condition. Next appointment will be scheduled in 1 month. I will prescribe him his opioid medications on 09/15/25. Cervical interlaminar C6-C7 epidural steroid injection resulted in good pain control. In the past Nevro SCS was offered to treat the lower back pain. Psychological evaluation needs to be completed before trial of Nevro SCS. Medications: New tizanidine Patient may take 1, 1 and 1/2 or even 2 pills at night to help him to sleep. He is recommended to start with 1 pill 1st and then gradually increase his intake of this medication. 2 mg PO TID PRN 90 tabs 8RF Difficulty sleeping 30 days Refilled oxycodone Partial Fill upon patient request. 10 mg PO Q4-6H PRN 150 tabs 0RF pain 30 days MDD Five pills a day G89.4 - Chronic pain syndrome, M50.30 - Other cervical disc degeneration, unspecified cervical region, M51.36 - Other intervertebral disc degeneration, lumbar region, Z79.891 - clinical data associate (current) use of opiate analgesic Coding Level of Care Code Est Pt Level 3 (57175) Diagnoses Cubital tunnel syndrome on left G56.22 Degenerative disc disease, cervical M50.30 Degenerative disc disease, lumbar M51.36 Chronic pain syndrome G89.4 Opiate analgesic contract exists Z79.891 Lumbar radiculopathy M54.16 Lumbar spondylosis M47.816 Right-sided chest pain R07.9 Insomnia G47.00 Intercostal neuralgia G58.8 Cervical radiculopathy M54.12
== END 2025-09-04 12:11 | disposition home or self-care (01) ==
LOC: HO.PMC 11:49
PROVIDERS: PCP Internal Medicine; Visit Provider Anesthesiology
DX: G56.22 Lesion of ulnar nerve, left upper limb (principal); M50.30 Other cervical disc degeneration, unspecified cervical region; M51.369 Other intervertebral disc degeneration, lumbar region without mention of lumbar back pain or lower extremity pain; G89.4 Chronic pain syndrome; Z79.891 Long term (current) use of opiate analgesic; M54.16 Radiculopathy, lumbar region; M47.816 Spondylosis without myelopathy or radiculopathy, lumbar region; R07.9 Chest pain, unspecified; G47.00 Insomnia, unspecified; G58.8 Other specified mononeuropathies; M54.12 Radiculopathy, cervical region
CPT/HCPCS: 99213

== ENCOUNTER → 2025-09-04 11:49 | Outpatient (BNVA) | payer OTHER, MEDICARE, MEDICAID, SELFPAY | PROVIDERS: PCP Internal Medicine; Visit Provider Anesthesiology | DX: Z51.81 Encounter for therapeutic drug level monitoring (principal); G56.22 Lesion of ulnar nerve, left upper limb; M50.30 Other cervical disc degeneration, unspecified cervical region; M51.369 Other intervertebral disc degeneration, lumbar region without mention of lumbar back pain or lower extremity pain; M54.16 Radiculopathy, lumbar region; R07.9 Chest pain, unspecified; M47.816 Spondylosis without myelopathy or radiculopathy, lumbar region; M54.12 Radiculopathy, cervical region; G47.00 Insomnia, unspecified; G58.8 Other specified mononeuropathies; G89.4 Chronic pain syndrome; Z79.891 Long term (current) use of opiate analgesic | CPT/HCPCS: 99212 ==

== ENCOUNTER 2025-10-02 11:14 | Outpatient (AMB) | payer OTHER, SELFPAY ==
--- NOTE | 2025-10-02 11:27 | MHC.OFFVIS ---
Vital Signs 10/02/25 11:31 Height 5 ft 4 in Weight 174 lb BMI 29.9 BP 124/61 Blood Pressure Location Rt brachial Position Sitting Respiration 16 Pulse 73 Pulse Source Pulse Oximeter Pulse Oximetry (%) 96 Oxygen Delivery Method Room Air Intake Visit Reasons: Pill Count Intake Note: Patient here for a pill count routine of Oxycodone. Per directions patient should have 65 pills. Patient presente d70 pills. Last took 6am. Reverse Unit Operator Required: No Accompanied by: Self / Same As Patient Allergies No Known Allergies Allergy (Verified 10/02/25 11:35) HPI Comments Details: Dinh presents to the office for follow up chronic pain and chronic opioid therapy management. His pill count is correct today. He presents today with 70 pills in his possession. His supposed to have 65 pills in his possession. He is taking oxycodone 10 mg 5 pills a day. He requested me to prescribe Lyrica for him, he was on Lyrica before but we stopped this medication because he reported sedation. However that was on 300 mg. He reported that he could tolerate 100 mg b.i.d. better. I will start it today. His oxycodone is due on 10/15/2025 Next appointment I will see him in 1 month. Prior: Epidural steroid injection cervical spine 11/05/2024 -excellent results he continues to express less pain in the cervical spine and better cervical mobility. Pill count today is correct he is not supposed to have any medications in his possession because he ran out of on his prescription. I will see this patient in 3 weeks and we will perform next pill come. PRIOR: diagnostic bilateral L3- L4- L5 MBB performed on 05/16/23. He reports no pain improvement whatsoever. pain after the procedure remained in the range 8/10 to 9.5/10. SCS nevro trial was discussed with the patient. He is not very eager to accept spinal cord stimulator he wants to do the steroid injections in his back. We will schedule it in May. ?He has severe lumbar stenosis.? I recommended him to go back to a neurosurgeon to discuss his spinal stenosis.? However patient adamantly refused to go for consultation with a neurosurgeon.? 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 At multiple intervertebral interval he has ligamentum flavum hypertrophy which could be addressed with MILD procedure. complains on severe pain in neck and severe pain in the back.? He reports pain in the neck radiates into the right upper extremity and pain in the back is not radiating.? He relates his pain to the injuries he sustained while in accident on 09/05. he fell from garbage truck an fell on his back.? About 2 years ago he was on oxycodone about 120 mg a day and the he was more active and able to walk better.? He reports that he had multiple chiropractic manipulations and physical therapy in the past to alleviate his pain and those were not effective, he has home traction unit but it does not alleviate his pain. He takes Lyrica meloxicam Cymbalta phentermine and amitriptyline to help him to sleep at night. [facility] Medical History (Updated 08/29/24 @ 15:52 by Moiz Morales MD) Chronic pain syndrome Spondylosis of lumbar region without myelopathy or radiculopathy Spondylosis, cervical Degenerative disc disease, lumbar Degenerative disc disease, cervical Depression Essential hypertension Chronic radicular cervical pain Allergic rhinitis Anxiety COPD (chronic obstructive pulmonary disease) Insomnia Hyperlipidemia Erectile dysfunction Surgical History H/O shoulder surgery Family History Maternal Grandfather Diabetes Mother Cancer Brother Bladder cancer Breast CA Sister No problems noted. Social History Alcohol intake: never Patient Tobacco Use Status: Current everyday Tobacco user Tobacco use type: Cigarette Cigarettes Per Day: 5 Second Hand Smoke Exposure: No Substance Use Type: Marijuana Review of Systems Const All systems reviewed & are unremarkable except as noted in HPI and below Physical Exam Vital Signs: Last Vital Signs Pulse 73 10/02/25 11:31 Resp 16 10/02/25 11:31 BP 124/61 10/02/25 11:31 Pulse Ox 96 10/02/25 11:31 Oxygen Delivery Method Room Air 10/02/25 11:31 BMI result Body Mass Index 29.9 Const General: in distress severe; No comfortable Resp Effort & Inspection: normal respiratory effort and able to speak in complete sentences Cardio Jugular venous distension: no JVD Back/Spine/Pelvis Other: Loading test is positive bilaterally, tenderness of palpation on paraspinal spinal region lumbar spine Cervical Spine: No cervical ROM normal Thoracic/Lumbar Spine: thoracic and lumbar spine normal to inspection, pain with thoraco-lumbar ROM and thoraco-lumbar ROM limited Extrem Other: Limited mobility of the left upper extremity in the elbow. Severe tenderness on palpation in projection of the medial elbow with pain radiating down to the medial surface of the forearm and into the 5th finger on the left. Psych Appearance: grossly normal Mental Status: mental status grossly normal Speech and movement: Normal speech and movement present Affect: normal affect Attitude: cooperative Thought process: Normal thought process present Thought content: Normal thought content present Insight: Good insight present (Psych) Judgement: Good judgement present (Psych) Assessment & Plan Assessment & Plan (1) Cubital tunnel syndrome on left: Code(s): G56.22 - Lesion of ulnar nerve, left upper limb Category: Medical (2) Degenerative disc disease, cervical: Code(s): M50.30 - Other cervical disc degeneration, unspecified cervical region Category: Medical (3) Degenerative disc disease, lumbar: Code(s): M51.36 - Other intervertebral disc degeneration, lumbar region Category: Medical (4) Chronic pain syndrome: Code(s): G89.4 - Chronic pain syndrome Category: Medical (5) Opiate analgesic contract exists: Code(s): Z79.891 - skilled nursing (current) use of opiate analgesic Category: Medical (6) Lumbar radiculopathy: Code(s): M54.16 - Radiculopathy, lumbar region Category: Medical (7) Lumbar spondylosis: Code(s): M47.816 - Spondylosis without myelopathy or radiculopathy, lumbar region Category: Medical (8) Right-sided chest pain: Code(s): R07.9 - Chest pain, unspecified Category: Medical (9) Insomnia: Code(s): G47.00 - Insomnia, unspecified Category: Medical (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 He reports good pain control on current opioid medications he receives 10 mg of oxycodone 5 times a day. He requested me to prescribe him Lyrica 100 mg b.i.d.. He used to take this medication before we try to escalated to 300 mg at 300 mg he reported somnolence and tiredness. He did not have any side effects on 100 mg b.i.d.. I will start this medication for him today. I will prescribe his oxycodone on 10/15/2025 Next appointment will be scheduled in 1 month. Cervical interlaminar C6-C7 epidural steroid injection resulted in good pain control. In the past Nevro SCS was offered to treat the lower back pain. Psychological evaluation needs to be completed before trial of Nevro SCS. Medications: New pregabalin 100 mg PO BID 60 caps 5RF 30 days Refilled oxycodone Partial Fill upon patient request. 10 mg PO Q4-6H PRN 150 tabs 0RF pain 30 days MDD Five pills a day G89.4 - Chronic pain syndrome, M50.30 - Other cervical disc degeneration, unspecified cervical region, M51.36 - Other intervertebral disc degeneration, lumbar region, Z79.891 - skilled nursing (current) use of opiate analgesic Coding Level of Care Code Est Pt Level 3 (31052) Diagnoses Cubital tunnel syndrome on left G56.22 Degenerative disc disease, cervical M50.30 Degenerative disc disease, lumbar M51.36 Chronic pain syndrome G89.4 Opiate analgesic contract exists Z79.891 Lumbar radiculopathy M54.16 Lumbar spondylosis M47.816 Right-sided chest pain R07.9 Insomnia G47.00 Intercostal neuralgia G58.8 Cervical radiculopathy M54.12
[2025-10-02 11:31] VITALS: BP 124/61; PULSE 73; RESP 16; O2SAT 96; BMI 29.9
--- OUTSIDE RECORDS SUMMARY | 2025-10-02 13:57 | XMS_ITS | Data Portability ---
Author Organization [place] [facility] Address [address] [place] [address] Care Team Providers Care Bottle Cleaner Name Role Phone DESHAWN GARCIA Primary Care [...] after care of this patient according to [facility]'s infection prevention protocols. Time On Scene with Patient: 01:08:28 soraida Not available 12/19/2021 09:48:20 Plan of Treatment Reminders Order Date Submit Date Provider Last Modified By Organization Details Last Modified Time Details Appointments None recorded. Lab unlisted lab - covid-19 (novel coronaviru s) PCR 2021 022 [email or web address] [facility] (Centralized Electronic Ordering - All Locations), Patient Can Go To The Location Of Their Choice, [id number] 12:39:52 Referral None recorded. Procedures None recorded. Surgeries None recorded. Imaging None recorded. Medication Orders None recorded. Patient TargetsNo targets recorded. Patient Instructions Encounter Date Encounter Id Patient Instructions Last Modified By Organization Details Last Modified Time 12/16/2021 [id number] You were seen today for a 4 [...] breath, cough, fever or additional symptoms. Call [phone] if you need to access your COVID [...] Disea se Contr ol and preve ntion ([facility]) pre depar ture and arriv al requi [...] COVID -19 can be found at the [employer] ostic s webs te: [email or web address] .com/ Covid 19. Test Perfo rmed by: [employer], [address] [place]. [address] . Labor atory Direc tor: Jerome gomez MD. Not Available [facility] (Centralized Electronic Ordering - All Locations) Patient Can Go To The Location Of Their Choice, [id number] 12/20/2021 07:34:11 Result Notes None recorded. Procedures Surgical History Date Name Laterality Status Provider Name and Address Organization Details Recorded Time repair of perforated colon completed Sara Childs NP [address] [place] [address], [place], [address], [place] [facility] 12/16/2021 13:10:48 Imaging Results None recorded. Procedure [...] Pulse oximetry Respiratory rate Heart rate Systolic And Diastolic Provider Name and Address Organization Details Last Updated DateTime 98.2 [degF] 93 % 93 % 18 /min 92 /min 110/64 mm[Hg] Not Available [facility] 13:01:52 Social History Question Answer Notes LastModified by Organizat ion Details LastModified Time Tobacco Smoking Status Current Some Day Smoker Sara Childs, [facility] [address] [facility], [place], [address], [place] [facility] 12/16/2021 13:04:29 Do You Have An Advance Directive? No [employer] elizabeth's Information not available 12/16/2021 What Is Your Code Status? Full Code [facility] Information not available 12/16/2021 Which Illicit Or Recreational Drugs Have You Used? Medical Marijuana Card Information not available 12/16/2021 Within The Past 12 Months, Has It Happened That The Food You Bought Just Didn't Last And You Didn't Have Money To Get More. No [employer] Information not available 12/16/2021 Within The Past 12 Months, Have You Worried That Your Food Would Run Out Before You Got Money To Buy More. No [employer] Information not available 12/16/2021 Fall Risk: Do You Feel Unsteady When Standing Or Walking? Yes [employer] Information not available 12/16/2021 Excessive Alcohol Or Drug Use No [employer] Information not available 12/16/2021 Does This Patient Have A PCP? Yes [employer] Information not available 12/16/2021 We Know From Many Of Our Patients That Covering All Of Their Costs Can Be Difficult At Times. This Can Cause Stress And Impact Health. In The Past Year, Have You Been Unable To Get Any Of The Following When It Was Really Needed? No [facility] Information not available 12/16/2021 What Is Your Housing Situation Today? I Have Housing [facility] Information not available 12/16/2021 How Many Years Have You Smoked Tobacco? 50 Information not available 12/16/2021 Sex: Unknown Functional Status Question Answer Note LastModified by Organizat ion Details LastModified Time Do you use any illicit or recreational drugs? Yes formerly [facility] Information not available 12/16/2021 Do you or have you ever used any other forms of tobacco or nicotine? No formerly [facility] Information not available 12/16/2021 What is your level of alcohol consumption? None [facility] Information not available 12/16/2021 Mental Status None recorded. Family History Relationship Description Onset Age of this Age Resolved Age Notes LastModified by Organization Details LastModified Time Mother Malignant neoplastic disease elliwell Not available 12/16 13:03:02 Father Chronic obstructive pulmonary disease jhelliwell Not available 12/16 13:03:29 Medical History Condition Response Diabetes N Coronary Artery Disease N CHF N Parkinson's Disease N Cancer N Dementia N Stroke N COPD Y Depression N Hypothyroidism N Asthma N High Cholesterol N Rheumatoid Arthritis N Pulmonary Embolism N Hypertension Y A-fib N Osteoporosis N Kidney Disease N Past Encounters Encounter ID Performer Location Encounter Start Date Encounter Closed Date Diagnosis/Indication Diagnosis SNOMED-CT Code Diagnosis ICD10 Code Diagnosis IMO Codes Diagnosis Note [id number] Sara Childs NP [facility] - [address] [address] 12/16/2021 12:52:07 12/21/2021 12:28:42 Suspected COVID-19 141054659 Z20.822 Exposure t o communicable disease 583116935 Z20.822 Chronic ob structive pulmonary disease 40770764 J44.9 Health Concerns Section Related Observation LastModified by Organization Detai ls LastModified Time None Recorded Concern Status LastModified by Organization Details LastModified Time None Recorded Advance Directives Directive N: Payers Insurance Date Sequence Insurance Name Policy Number Policy Martinez Covered Member ID Martinez Member ID Guarantor Name 12/15/2021 1 *SELF PAY* Dinh Schulz [id number] Dinh Schulz 12/16/2021 2 [place] Dinh Schulz [id number] Dinh Schulz 12/18/2021 1 [place] B[place] [employer] Dinh Schulz Sr [id number] Dinh Schulz Notes Date Note Type Note [...] had two COVID vaccines Sara Childs NP [address] [place] [address] [place], [address], [place] [facility] 12/19/2021 09:48:31
--- OUTSIDE RECORDS SUMMARY | 2025-10-02 13:57 | XMS_ITS | Clinical Summary ---
Author Organization [facility] Address [address] [address] Phone Care Team Providers Care Cloth Checker Name Role Phone Marc Taylor MD Primary Care Provider [phone] Allergies No known active allergies Medications atorvastatin [...] Date Diagnosed Date Chronic kidney disease, stage 2 (mild) Stage 3a chronic kidney disease 11/22/2024 Hypertension 06/02/2008 Resolved Problems Problem Noted Date Diagnosed [...] Encounters Date Type Department Care Team Description 08/25/2025 11:00 AM EDT Office Visit [facility] [address] [address] Olive Bennett ARNP Chronic kidney disease, stage 2 (mild) (Primary Dx); Hypertension from Last 3 Months Immunizations Immunization Administration Dates Next Due Influenza [...] Sign Reading Time Taken Comments Blood Pressure 110/58 08/25/2025 11:16 AM EDT Pulse 71 08/25/2025 11:16 AM EDT Temperature - - Respiratory Rate - - Oxygen Saturation 95% 08/25/2025 11: 16 AM EDT Inhaled Oxygen Concentration - - Weight 78.4 kg (172 lb 12.8 oz) 025 11:16 AM EDT Height - - Body Mass Index - - Plan of Treatment Upcoming Encounters Date Type Department Care Team (Late st Contact Info) Description 08/25/2026 11:30 AM EDT Office Visit [facility] [address] [address] Olive Bennett ARNP [address] [phone] Health Maintenance Due Date Last Done Comments [...] [place] Care Teams Cloth Checker Relationship Specialty Start Date End Date Marc Taylor MD [address] [address] PCP - General Internal Medicine 12/15/23
--- OUTSIDE RECORDS SUMMARY | 2025-10-02 13:57 | XMS_ITS | Clinical Summary ---
Author Organization [facility] Address [address] [place] [address] Phone Care Team Providers Care Gun Stocker Name Role Phone Marc Taylor MD Primary Care Provider [phone] Allergies Active Allergy Reactions Criticality Noted Date Comments Other 02/16/2024 Seasonal allergies Medications nortriptyline (PAMELOR) 25 mg capsule TAKE 1 CAPSULE BY MOUTH 3 TIMES A DAY FOR 30 DAYS. TO HELP QUIT SMOKING 08/16/20 24 Active magnesium oxide (MAG-OX) 400 mg (241.3 elemental magnesium) tablet Take 1 tablet (400 mg total) by mouth. 11/30/19 24 Active omeprazole (PriLOSEC) [address] capsule Take 1 capsule (40 mg total) by mouth. 03/14/20 24 Active suvorexant (Belsomra) 20 mg tablet 07/11/20 24 Active pregabalin (LYRICA) 300 mg capsule Take 1 capsule (300 mg total) by mouth 2 (two) times a day. Active NIFEdipine (ADALAT CC) 30 mg 24 [...] FOR WHEEZING 03/24/20 21 Active medical marijuana FURNACE COMBINATION ANALYST med Active ipratropium-alb uteroL (DUONEB) 0.5-2.5 mg/3 [...] ns:Chronic obstructive pulmonary disease, unspecified COPD type ([facility] V24, [facility] V28) USE DIRECTED PER PACKAGE LABELING 53 each 11/14/20 24 Active Additional Information Patient not taking.Reported on 05/15/2025 cetirizine (ZyrTEC) 10 mg tablet TAKE 1 TABLET BY MOUTH EVERY DAY 90 tablet 1 03/20/20 25 Active buPROPion SR (WELLBUTRIN SR) 150 mg 12 hr tablet TAKE 1 TABLET BY MOUTH TWICE A DAY 90 tablet 3 04/14/20 25 Active Trelegy Ellipta 100-62.5-25 mcg inhalerIndicati ons:Chronic obstructive pulmonary disease, unspecified ([facility] V24, [facility] V28) INHALE 1 DOSE DAILY 60 each 11 08/28/20 25 Active cyanocobalamin (VITAMIN B-12) 1,000 mcg tablet TAKE 1 TABLET BY MOUTH 2 TIMES DAILY 180 tablet 1 09/17/20 25 Active aspirin 81 mg EC tablet TAKE 1 TABLET BY MOUTH EVERY DAY 90 tablet 5 09/19/20 25 Active atorvastatin (LIPITOR) 40 mg tablet TAKE 1 TABLET BY MOUTH EVERY DAY 90 tablet 2 09/29/20 25 Active aspirin 81 mg EC tablet Take 1 tablet (81 mg total) by mouth 1 (one) time each day. 06/26/20 24 025 Discontinued atorvastatin (LIPITOR) 40 mg tablet TAKE 1 TABLET BY MOUTH EVERY DAY 90 tablet 2 01/05/20 25 025 Discontinued cyanocobalamin (VITAMIN B-12) 1,000 mcg tablet TAKE 1 TABLET BY MOUTH 2 TIMES DAILY 180 tablet 1 03/20/20 25 025 Discontinued Active Problems Problem Noted Date Diagnosed Date Chronic kidney disease, stage 3a ([facility] V24, C MS/HCC V28) 11/22/2024 Chronic low back pain 11/11/2024 [...] C5-6 central stenosis on C/S MRI 08/21/24 [facility], Dr. Castro is offering patient C4-5, [...] with risk of stroke (prior TIA/stroke) or [place], damage to nerve or spinal cord causing [...] 12/18/2017 COPD (chronic obstructive pu lmonary disease) ([facility] V24, [facility] V28) 12/13/2017 Assessment & Plan (04/15/2025 12:07 [...] PERMANENT MARIJUANA CARD DROPPED OFF TODAY 09/16/2015. REGISTRATION#[id number]. EXPIRES 09/08/2018TEMPORARY CARD REGISTRATION#[id number] EXPIRES 10/19/2015 Chronic radicular cervical pain 06/02/2008 Overview (09/13/2024): S/p MRI x 2 , s/p N-S appts. Radiates into rt. Arm, narcotics since 1999 Depression 06/02/2008 Overview (09/13/2024): Sees Dr. Moreno Nugent atkinson Assessment & Plan (04/15/2025 12:07 PM EDT): Orders: Ambulatory referral to Talkiat[facility]; Future Essential hypertension, benign 06/02/2008 Immunizations Immunization Administration Dates Next Due Influenza trivalent, 0.5mL [...] 1999 COPD (chronic obstructive pu lmonary disease) ([facility] V24, [facility] V28) 12/13/2017 DX:COPD (chronic o bstructive pulmonary disease) ([facility]); COMMENT: Dr. Conteh, Severe emphysema Depression 06/02/2008 DX:Depression; C OMMENT: Sees Dr. Moreno Nugent atkinson Erectile dysfunction 06/26/2018 DX:Erectile dysfunction Hyperlipidemia 06/26/2018 DX:Hyperlipidemi a Insomnia 12/18/2017 DX:Insomnia Nicotine use disorder 06/26/2018 DX:Nicotin e use disorder Weakness of both arms DX:Weaknes s of both arms Memory changes DX:Memory change s Essential (primary) hypertension DX:Essential (primary) hypertension Perforated duodenal ulcer ([facility] [place] V24, [facility] V28) 09/15/2021 DX:Perforated duodenal ulcer (HCC); COMMENT: diagnostic laparotomy with oversewing of perforated duodenal ulcer with a Pa patch, Dr. Biswas Hiatal hernia with gastroeso phageal reflux 05/26/2022 DX:Hiatal hernia with gastroesophageal reflux CKD (chronic kidney disease) stage 3, GFR 30-59 ml/min ([facility] V24, [facility] V28) DX:CKD (chronic kidney disea se) stage 3, GFR 30-59 ml/min ([facility]) CVA (cerebral vascular accid ent) ([facility] V24, [facility] V28) 02/2024 DX:CVA (cerebral vascular a ccident) ([facility]); COMMENT: TIA 2021 Family History Medical History [...] AM EST Office Visit Internal Medicine - [place] [facility] [address] [place] [phone] Marc Taylor MD [address] [place] [phone] 11/25/2025 11:30 AM EST Office Visit Pulmonology - [place] [facility] [address] [place] [phone] Abelardo Conteh MD [address] [place] [phone] Health Maintenance Due Date Last Done Comments Colorectal Cancer Screening: Colonoscopy 1955 Hepatitis A Vaccines (1 of 2 - Risk 2-dose series) 1973 Zoster Vaccines (1 of 2) 1973 DTaP,Tdap,and Td Vaccines (3 - Td or Tdap) 09/10/2019 09/10/2009, 08/02/2008 COVID-19 Vaccine (2 - Pfizer risk series) 04/06/2021 03/16/2021 Social Influencers of Health Screening 10/31/2022 Influenza [...] 01/08/2024, 09/15/2021 Depression Screening Completed 04/15/2025, 02/16/20 RSV Immunization Adult Patients Completed 08/28/2025 HIB Vaccines Aged Out No longer eligi [...] Procedure Name Priority Date/Time Associated Diagnosis Comments COMPREHENSIVE METABOLIC PANEL Routine 04/24/2025 11:27 AM EDT Primary hypertension Anxiety Hypercholesterolem ia Other emphysema (CMS/HCC V24, CMS/HCC V28) LIPID PANEL WITH REFLEX TO DIRECT LDL Routine 04/24/2025 11:27 AM EDT Primary hypertension Anxiety Hypercholesterolem ia Other emphysema (CMS/HCC V24, CMS/HCC V28) ABDOMINAL AORTIC ANEURYSM SCRREN Routine 03/05/2024 DEPRESSION SCREENING Routine 02/16/2024 FALLS RISK ASSESSMENT Routine 02/16/2024 HEPATITIS C SCREENING Routine 03/20/2019 from Last 3 Months or Most Recently Relevant to Health Maintenance Results * Lipid panel with reflex to direct LDL (04/24/2025 11:27 AM EDT) [facility] Signature Cholesterol 143 0 - 200 mg/dL LAB CHEMISTRY METHOD 04/24/2025 3:32 PM EDT [facility] Triglycerides 71 0 - 150 mg/dL LAB CHEMISTRY METHOD 04/24/2025 3:32 PM EDT [facility] HDL 71 >=40 mg/dL LAB CHEMISTRY METHOD 04/24/2025 3:32 PM EDT [facility] LDL Calculated 58 0 - 100 mg/dL LAB CHEMISTRY METHOD 04/24/2025 3:32 PM EDT [facility] VLDL Cholesterol Jose Miguel 14.2 mg/dL LAB CHEMISTRY METHOD 04/24/2025 3:32 PM EDT [facility] Non HDL Chol. (LDL+VLDL) 72 <145 mg/dL LAB CHEMISTRY METHOD 04/24/2025 3:32 PM EDT [facility] Chol/HDL Ratio 2.0 0.0 - 4.4 LAB CHEMISTRY METHOD 04/24/2025 3:32 PM EDT [facility] Blood Venous blood specimen / Unknown Venipuncture / Unknown 04/24/2025 11:27 AM EDT 04/24/2025 11:27 AM EDT Marc Taylor MD LAB BLOOD ORDERABLES Final Resul t [facility] [address] [place] [address], * (ABNORMAL) Comprehensive metabolic panel (04/24/2025 11:27 AM EDT) Sodium 140 133 - 145 mmol/L LAB CHEMISTRY METHOD 04/24/2025 3:32 PM EDT [facility] Potassium 5.1 3.5 - 5.5 mmol/L LAB CHEMISTRY METHOD 04/24/2025 3:32 PM EDT [facility] Chloride 109 96 - 110 mmol/L LAB CHEMISTRY METHOD 04/24/2025 3:32 PM EDT [facility] CO2 28 21 - 32 mmol/L LAB CHEMISTRY METHOD 04/24/2025 3:32 PM [facility] Anion Gap 3 3 - 11 LAB CHEMISTRY METHOD 04/24/2025 3:32 PM [facility] Glucose 86 70 - 100 mg/dL LAB CHEMISTRY METHOD 04/24/2025 3:32 PM [facility] BUN 21 5 - 25 mg/dL LAB CHEMISTRY METHOD 04/24/2025 3:32 PM [facility] Creatinine 1.15 0.70 - 1.30 mg/dL LAB CHEMISTRY METHOD 04/24/2025 3:32 PM [facility] eGFR 68 >=60 mL/min/1. 73m2 LAB CHEMISTRY METHOD 04/24/2025 3:32 PM [facility] Comment:Calculation based on the Chronic Kidney Disease Epidemiology Collaboration (CKD-EPI) equation refit without adjustment for race. BUN/Creatinine Ratio 18.3 LAB CHEMISTRY METHOD 04/24/2025 3:32 PM [facility] Calcium 9.1 8.5 - 10.5 mg/dL LAB CHEMISTRY METHOD 04/24/2025 3:32 PM [facility] AST (SGOT) 27 10 - 42 unit/L LAB CHEMISTRY METHOD 04/24/2025 3:32 PM [facility] ALT (SGPT) 31 10 - 60 unit/L LAB CHEMISTRY METHOD 04/24/2025 3:32 PM [facility] Alkaline Phosphatase 122(H) 42 - 121 unit/L LAB CHEMISTRY METHOD 04/24/2025 3:32 PM [facility] Total Protein 7.4 6.0 - 8.0 g/dL LAB CHEMISTRY METHOD 04/24/2025 3:32 PM [facility] Albumin 3.9 3.2 - 5.0 g/dL LAB CHEMISTRY METHOD 04/24/2025 3:32 PM EDT [facility] Total Bilirubin 0.6 0.0 - 1.4 mg/dL LAB CHEMISTRY METHOD 04/24/2025 3:32 PM EDT [facility] Blood Venous blood specimen / Unknown Venipuncture / Unknown 04/24/2025 11:27 AM EDT 04/24/2025 11:27 AM EDT Marc Taylor MD LAB BLOOD ORDERABLES Final Resul t [facility] [address] [place] [address], [place] [phone] * Abdominal Aortic Aneurysm Screen (03/05/2024) [facility] Abdominal Aortic Aneurysm (AAA) Screening abstracted, no interpretation Anatomical Region Laterality Modality Other Historical Madelyn [employer] Final Result * Falls Risk Assessment (02/16/2024) [facility] Falls Risk Assessment abstracted Result [facility] Madelyn [employer]NA[employer] Final Result * Depression Screening (02/16/2024) [facility] Depression Screening abstracted Result [facility] Provider HEALTH MAINTENANCE Final Result * Hepatitis C Screening (03/20/2019) [facility] Hepatitis C Screening abstracted Result [facility] Madelyn [employer] Final Result from Last 3 Months or Most Recently Relevant to Health Maintenance Insurance MEDICARE MEDICAID - [place] Advance Directives Documents on File Type Date Recorded 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
== END 2025-10-02 11:35 | disposition home or self-care (01) ==
LOC: HO.PMC 11:15
PROVIDERS: PCP Internal Medicine; Visit Provider Anesthesiology
DX: G56.22 Lesion of ulnar nerve, left upper limb (principal); M50.30 Other cervical disc degeneration, unspecified cervical region; M51.369 Other intervertebral disc degeneration, lumbar region without mention of lumbar back pain or lower extremity pain; G89.4 Chronic pain syndrome; Z79.891 Long term (current) use of opiate analgesic; M54.16 Radiculopathy, lumbar region; M47.816 Spondylosis without myelopathy or radiculopathy, lumbar region; R07.9 Chest pain, unspecified; G47.00 Insomnia, unspecified; G58.8 Other specified mononeuropathies; M54.12 Radiculopathy, cervical region
CPT/HCPCS: 99213

== ENCOUNTER → 2025-10-02 11:14 | Outpatient (BNVA) | payer OTHER, MEDICARE, MEDICAID, SELFPAY | PROVIDERS: PCP Internal Medicine; Visit Provider Anesthesiology | DX: G89.4 Chronic pain syndrome (principal); M51.360 Other intervertebral disc degeneration, lumbar region with discogenic back pain only; M54.16 Radiculopathy, lumbar region; M47.816 Spondylosis without myelopathy or radiculopathy, lumbar region; R07.9 Chest pain, unspecified; Z79.891 Long term (current) use of opiate analgesic; G47.00 Insomnia, unspecified; M54.12 Radiculopathy, cervical region | CPT/HCPCS: 99212 ==

== ENCOUNTER 2025-11-05 11:32 | Outpatient (AMB) | payer OTHER, SELFPAY ==
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
[2025-11-05 11:42] VITALS: BP 146/70; PULSE 72; RESP 16; O2SAT 96
== END 2025-11-05 11:51 | disposition home or self-care (01) ==
LOC: HO.PMC 11:32
PROVIDERS: PCP Internal Medicine; Visit Provider Anesthesiology
DX: G56.22 Lesion of ulnar nerve, left upper limb (principal); M50.30 Other cervical disc degeneration, unspecified cervical region; M51.369 Other intervertebral disc degeneration, lumbar region without mention of lumbar back pain or lower extremity pain; G89.4 Chronic pain syndrome; Z79.891 Long term (current) use of opiate analgesic; M54.16 Radiculopathy, lumbar region; M47.816 Spondylosis without myelopathy or radiculopathy, lumbar region; R07.9 Chest pain, unspecified; G47.00 Insomnia, unspecified; G58.8 Other specified mononeuropathies; M54.12 Radiculopathy, cervical region
CPT/HCPCS: 99213

== ENCOUNTER → 2025-11-05 11:32 | Outpatient (BNVA) | payer OTHER, MEDICARE, MEDICAID, SELFPAY | PROVIDERS: PCP Internal Medicine; Visit Provider Anesthesiology | DX: G89.4 Chronic pain syndrome (principal); M51.369 Other intervertebral disc degeneration, lumbar region without mention of lumbar back pain or lower extremity pain; M50.30 Other cervical disc degeneration, unspecified cervical region; M47.26 Other spondylosis with radiculopathy, lumbar region; R07.9 Chest pain, unspecified; G47.00 Insomnia, unspecified; Z79.891 Long term (current) use of opiate analgesic | CPT/HCPCS: 99212 ==